=== PATIENT | male | born 1960 | race Caucasian/White ===

== ENCOUNTER → 2016-07-30 | Outpatient (CLI) | payer OTHER, BC ==
[~2016-07-30] MED LIST: CLON1TAB3 PO; CRD200 PO; CRG25 PO; DIGO30TA PO; EPLE25TA3 PO; LISI5TAB PO; MAGN1CAP2 PO; RIVA1TAB4 PO; RXC5 PO; ZOLP10TA6 PO
[2016-07-30 15:00] LABS: ALB/GLOB RATIO 1.1 (0.9-2); ALT/SGPT 31 U/L (12-78); AST/SGOT 15 U/L (15-37); BLOOD UREA NITROGEN 17 mg/dl (7-18); BUN/CREATININE RATIO 12.9 (10-20); CALCIUM 8.3 mg/dl (8.5-10.1); CARBON DIOXIDE 27 mmol/L (21-32); CHLORIDE 106 mmol/L (98-107); CHOLESTEROL 180 mg/dl (0-200); GLUCOSE 92 mg/dl (70-99); POTASSIUM 4.1 mmol/L (3.5-5.1); SODIUM 141 mmol/L (136-145); TRIGLYCERIDES 122 mg/dl (0-150); VERY LOW DENSITY LIPOPROT CALC 24 mg/dl
[2016-07-30 15:10] LABS: ALKALINE PHOSPHATASE 69 U/L (45-117); CHOLESTEROL/HDL RATIO 3.8; HDL CHOLESTEROL 48 mg/dl; LDL CHOLESTEROL CALCULATED 108 mg/dl
[2016-08-01 22:39] LABS: AMIODARONE 1.4 mcg/mL (1.5-2.5); DESMETHYLAMIODARONE 0.8 mcg/mL (1.5-2.5)
== END | disposition home or self-care (01) ==
LOC: C.LAB1850 12:57
PROVIDERS: ATTEND Internal Medicine
DX: Z11.59 Encounter for screening for other viral diseases (principal); I47.2 Ventricular tachycardia; I42.8 Other cardiomyopathies

== ENCOUNTER → 2017-03-11 | Outpatient (CLI) | payer OTHER, BC ==
--- NOTE | 2017-03-11 12:35 | DIAGNOSTIC IMAGING REPORT ---
CHEST 2 VIEWS ROUTINE CLINICAL HISTORY: Z79.899 On amiodarone therapy dyspnea COMPARISON STUDY: 01/06/2016 FINDINGS: Mild stable cardia megaly. Permanent implantable cardiac pacemaker/defibrillator. Lungs are clear. Diaphragms smooth. IMPRESSION: No acute process. Chronic and postoperative change. The above report was generated using voice recognition software. It may contain grammatical, syntax or spelling errors. Electronically signed by: Ras Nelson M.D. 03/11/2017 12:33 PM Dictated Date/Time: 03/11/2017 12:32 PM
[2017-03-11 14:16] LABS: THYROID STIMULATING HORMONE 1.38 uIu/ml (0.300-4.500)
[2017-03-14 08:28] LABS: AMIODARONE 1.9 mcg/mL (1.5-2.5); DESMETHYLAMIODARONE 1.1 mcg/mL (1.5-2.5)
== END | disposition home or self-care (01) ==
LOC: C.RAD1850 11:42
PROVIDERS: ATTEND Internal Medicine Cardiovascular Disease
DX: Z79.899 Other long term (current) drug therapy (principal)

== ENCOUNTER 2017-04-22 18:27 | Emergency (ER) | payer OTHER, BC ==
[~2017-04-22] VITALS: Ht 198.1 cm; Wt 115.0 kg
[2017-04-22 18:55] VITALS: TEMP 36.6; Ht 198.1 cm; Wt 115.0 kg
[2017-04-22] MEDS ORDERED: OXYCODONE HCL IR 5 MG TAB (IMMEDIATE RELEASE) PO STA (19:01)
--- NOTE | 2017-04-22 19:47 | DIAGNOSTIC IMAGING REPORT ---
ULTRASOUND R VENOUS DOPP LOWER EXT UNILAT CLINICAL HISTORY: Right leg pain COMPARISON STUDY: No previous studies for comparison. FINDINGS: Real-time and color flow Doppler imaging were performed. Flow was seen within the femoral, popliteal and calf veins with no intraluminal thrombus demonstrated. The saphenous vein is patent. IMPRESSION: No evidence of right lower extremity DVT. Electronically signed by: Blu Pandey M.D. 04/22/2017 7:45 PM Dictated Date/Time: 04/22/2017 7:45 PM
--- NOTE | 2017-04-22 20:27 | EMERGENCY ROOM VISIT NOTE ---
ED Visit Note First contact with patient: 18:58 The patient was seen and examined with Sebastian Billings PA-C. I agree with the history, physical and findings. Please see the note for disposition and details.
--- NOTE | 2017-04-22 20:27 | EMERGENCY ROOM VISIT NOTE ---
History First contact with patient: 18:58 Chief Complaint: CALF PAIN Stated Complaint: TIGHT CALF,POSSIBLE BLOOD CLOT History of Present Illness The patient is a 57 year old male who presents to the Emergency Room via private vehicle accompanied by female with complaints of "tight calf, possible blood clot". The patient states that he actually missed his recent dose of Xarelto. He is on this for atrial fibrillation. He notes that this morning he awoke with right lateral leg pain. He is concerned he may have a DVT. He rates the pain as a 10/10. Review of Systems A complete 6-point Review of Systems was discussed with the patient, with pertinent positives and negatives listed in the History of Present Illness. All remaining Review of Systems questions can be considered negative unless otherwise specified. Past Medical/Surgical History Medical Problems: (1) Afib (2) Cardiomyopathy (3) Diverticulosis (4) Kidney stones Surgical Problems: (1) S/P appendectomy Family History FH: heart disease Social History Smoking Status: Former Smoker Marital Status: Occupation Status: employed Current/Historical Medications Scheduled Amiodarone HCl (Amiodarone HCl), 200 MG PO DAILY Carvedilol (Carvedilol), 25 MG PO BID Digoxin (Digitek), 0.125 MG PO DAILY Eplerenone (Eplerenone), 25 MG PO HS Lisinopril (Prinivil), 5 MG PO HS Magnesium Oxide (Mg Supplement (Magnesium), 400 MG PO HS Rivaroxaban (Xarelto), 20 MG PO DAILY Zolpidem Tartrate (Zolpidem Tartrate), 10 MG PO DAILY Scheduled PRN Clonazepam (Klonopin), 0.5-1.5 MG PO HS PRN for Sleep Oxycodone HCl (Oxycodone HCl), 5-10 MG PO Q4 PRN for Pain Physical Exam Vital Signs Date Time Temp Pulse Resp B/P (MAP) Pulse Ox O2 Delivery O2 Flow Rate FiO2 04/22/17 20:48 72 102/64 98 04/22/17 18:55 36.6 86 20 90/60 96 Room Air Physical Exam VITAL SIGNS - Vital signs and nursing notes were reviewed. Stable. GENERAL -57-year-old male appearing his stated age who is in no acute distress. Communicates well with provider and answers questions appropriately. SKIN - Without rashes. No petechial rashes. Skin overlying the right leg is unremarkable. No erythema or excessive edema. No undue warmth. EXTREMITIES - No clubbing or peripheral cyanosis. No pretibial edema present. Passive dorsiflexion elicits pain in the right anterior tibialis region. No palpable cord. No calf tenderness. Excellent distal pulses. +5/5 strength noted in UE/LE bilaterally. He is neurovascularly intact in this region. Medical Decision & Procedures ER Provider Diagnostic Interpretation: [~ rep ct add3]] ULTRASOUND R VENOUS DOPP LOWER EXT UNILAT CLINICAL HISTORY: Right leg pain COMPARISON STUDY: No previous studies for comparison. FINDINGS: Real-time and color flow Doppler imaging were performed. Flow was seen within the femoral, popliteal and calf veins with no intraluminal thrombus demonstrated. The saphenous vein is patent. IMPRESSION: No evidence of right lower extremity DVT. Electronically signed by: Blu Pandey M.D. 04/22/2017 7:45 PM Dictated Date/Time: 04/22/2017 7:45 PM Medications Administered Medications (Trade) Dose Ordered Sig/Paola Route Start Time Stop Time Status Last Admin Dose Admin Oxycodone HCl (Roxicodone Immediate Rel Tab) 5 mg NOW STAT PO 04/22/17 19:01 04/22/17 19:22 DC 04/22/17 19:09 5 MG Medical Decision Patient was seen and evaluated as above. He presents to us today with concern over DVT. Ultrasound was obtained and found to be negative. I suspect he likely has a spasm of the anterior tibialis muscle. No evidence of compartment syndrome. He has excellent distal pulses. At this time the patient appears stable for outpatient management. He was given oxycodone here for his pain. Conservative management will be initiated. The patient was also seen and evaluated by the attending physician. Patient was educated upon management, educated upon worrisome symptoms in which to return, had questions answered prior to discharge, and was discharged home in good condition. Blood pressure appropriate once repeated. Medication list reviewed. In evaluation treatment this patient the following differential diagnoses were entertained: DVT, compartment syndrome, anterior tibialis strain, spasm, among others. Impression Primary Impression: Right leg pain Departure Information Dispostion Home / Self-Care Condition GOOD Referrals Ricky Juarez M.D. (PCP) Patient Instructions My [facility] Additional Instructions You have been treated in the Emergency Department for leg pain. You have received pain medicine in the emergency department which impairs your ability to operate a vehicle. It is illegal for you to drive after receiving these medicines. For pain control, you can use the following [id number] medicines (if >12 yo): - Regular strength (325mg/tab) Tylenol (acetaminophen) 2 tabs every 4-6 hours as needed. Do not exceed 12 tablets in a 24 hour period. Avoid taking more than 3 grams (3000 mg) of Tylenol per day. This includes any other sources of acetaminophen you may take on a regular basis. If this is a recent injury (<24 hrs), ice can be applied to the area of pain for the first 3 days to help decrease pain and inflammation. Ice massages can be performed by freezing water in a paper cup, peeling back the cup to expose the ice and then massaging over the affected area. Please limit weight bearing. Wrap to leg. Return to the Emergency Department if your current symptoms worsen despite treatment course outlined above.
[2017-04-22 20:48] VITALS: BP 102/64; PULSE 72; O2SAT 98
== END 2017-04-22 20:50 | disposition home or self-care (01) ==
LOC: C.EDB 18:28 → C.EDD 20:50
DX: M79.661 Pain in right lower leg (principal); I48.91 Unspecified atrial fibrillation; I42.9 Cardiomyopathy, unspecified; K57.90 Diverticulosis of intestine, part unspecified, without perforation or abscess without bleeding; Z87.442 Personal history of urinary calculi; Z98.890 Other specified postprocedural states; Z79.899 Other long term (current) drug therapy; Z82.49 Family history of ischemic heart disease and other diseases of the circulatory system

== ENCOUNTER → 2017-04-24 | Outpatient (CLI) | payer OTHER, BC ==
[2017-04-24 12:35] LABS: BLOOD UREA NITROGEN 24 mg/dl (7-18); BUN/CREATININE RATIO 17.8 (10-20); CALCIUM 9.3 mg/dl (8.5-10.1); CARBON DIOXIDE 24 mmol/L (21-32); CHLORIDE 106 mmol/L (98-107); CREATININE 1.35 mg/dl (0.60-1.40); GLUCOSE 73 mg/dl (70-99); POTASSIUM 4.5 mmol/L (3.5-5.1); SODIUM 135 mmol/L (136-145)
== END | disposition home or self-care (01) ==
LOC: C.LAB1850 10:41
PROVIDERS: ATTEND Internal Medicine Cardiovascular Disease
DX: I42.8 Other cardiomyopathies (principal)

== ENCOUNTER 2017-05-30 15:14 | Emergency (ER) | payer OTHER, BC ==
[~2017-05-30] VITALS: Ht 198.1 cm; Wt 115.7 kg
[2017-05-30 15:22] VITALS: TEMP 36.4; Ht 198.1 cm; Wt 115.7 kg
[2017-05-30] MEDS ORDERED: SACU1TAB4 PO (15:26)
[2017-05-30] MEDS ORDERED: SODIUM CHLORIDE 0.9% 500ML 500 ML IV STA (15:36)
[2017-05-30] MEDS ORDERED: OXYCODONE HCL IR 5 MG TAB (IMMEDIATE RELEASE) PO STA (15:36)
[2017-05-30 15:51] LABS: BASO % 0.3 %; BASO ABS # 0.02 K/uL (0-0.2); EOS ABS # 0.07 K/uL (0-0.5); HEMATOCRIT 40.3 % (42-52); HEMOGLOBIN 14.1 g/dL (14.0-18.0); IG# 0.01 K/uL (0.00-0.02); LYMPH % 15.2 %; LYMPH ABS # 1.11 K/uL (1.2-3.4); MEAN CELL VOLUME 92.2 fL (80-100); MEAN CORPUSCULAR HEMOGLOBIN 32.3 pg (25-34); MEAN PLATELET VOLUME 10.2 fL (7.4-10.4); MONO % 9.6 %; NEUT % 73.8 %; NEUT ABS # 5.38 K/uL (1.4-6.5); PLATELET COUNT 185 K/uL (130-400); RED CELL DISTRIBUTION WIDTH CV 12.2 % (11.5-14.5); RED CELL DISTRIBUTION WIDTH SD 41.5 fL (36.4-46.3); WHITE BLOOD COUNT 7.29 K/uL (4.8-10.8)
--- NOTE | 2017-05-30 15:53 | EMERGENCY ROOM VISIT NOTE ---
History Report prepared by Bev: Gregor Estrada Under the Supervision of: Dr. Taye Barajas M.D. 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 He states that he was in his attic checking a radon pipe to have it removed. He notes that he was in the attic of his home when he slipped off one of the beams and fell right through the ceiling into the bedroom. He states that he grabbed the beams on the way down, causing him to yank his shoulder. He reports pain in his right shoulder, right elbow, and under both arm pits. He currently rates his pain an 8 /10 in severity. The patient has cuts to both arms. He states that he landed on his feet on a rug. He states that he fell with full force. He states that he weighs 260 pounds and is 6 feet 6 inches tall. He states the ceiling is about 9 feet high, though he was in the attic on the beams which is higher. He notes chronic neck pain, though no new neck pain. He has a pace maker. He has a history of cardiomyopathy. He states that he can reach his ceiling from standing. He denies any head pain, LOC, neck pain, back pain, abdominal pain, chest pain, dizziness, shortness of breath, cough, leg pain, or leg numbness. He is currently taking Torsemide as needed. 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 He denies any head pain, dizziness or leg pain. Review of Systems See HPI for pertinent positives and negatives. A total of ten systems were reviewed and were otherwise negative. Past Medical & Surgical Medical Problems: (1) Afib (2) Cardiomyopathy (3) Diverticulosis (4) Kidney stones Surgical Problems: (1) S/P appendectomy Family History FH: heart disease Social History Smoking Status: Never Smoker Smokeless Tobacco Use: No Alcohol Use: none Drug Use: none Marital Status: Occupation Status: employed Current/Historical Medications Scheduled Amiodarone HCl (Amiodarone HCl), 200 MG PO BID Carvedilol (Carvedilol), 25 MG PO BID Digoxin (Digitek), 0.125 MG PO DAILY Eplerenone (Eplerenone), 25 MG PO HS Magnesium Oxide (Mg Supplement (Magnesium), 400 MG PO HS Rivaroxaban (Xarelto), 20 MG PO DAILY Sacubitril-Valsartan (Entresto 97-103 mg), 1 TAB PO BID Zolpidem Tartrate (Zolpidem Tartrate), 10 MG PO DAILY [Potassium], 1 TAB PO QPM Scheduled PRN Clonazepam (Klonopin), 0.5-1.5 MG PO HS PRN for Sleep Oxycodone Ir (Roxicodone Ir), 1-2 TAB PO Q4H PRN for Pain Allergies Coded Allergies: No Known Allergies (Verified , 05/30/17) Physical Exam Vital Signs Date Time Temp Pulse Resp B/P (MAP) Pulse Ox O2 Delivery O2 Flow Rate FiO2 05/30/17 18:09 74 17 101/57 98 05/30/17 17:33 85 20 101/56 100 Room Air 05/30/17 15:47 72 05/30/17 15:22 36.4 85 18 93/59 97 Room Air Physical Exam GENERAL: Awake, alert, uncomfortable appearing, no distress HEAD: Normocephalic, atraumatic. No eason sign. No raccoon eyes. EYES: Normal conjunctiva. PERRL. EARS: External ears normal. Right TM normal. Left TM normal. NOSE: Atraumatic OROPHARYNX: Lips, tongue, and mucosa unremarkable. No erythema or exudate. NECK: Paraspinal neck tenderness to palpation. No step offs in CT spine. No tracheal deviation or JVD. No posterior midline tenderness. No step offs noted. RESPIRATORY: CTA bilaterally CARDIAC: Regular rate and regular rhythm. ABDOMEN: Inspection reveals no abnormalities. Soft, non distended. No tenderness to palpation. No hernias. BACK: No midline step offs or tenderness to palpation. Unremarkable. PELVIS: Stable to rock. SKIN: Normal. LYMPH: No adenopathy. MUSCULOSKELETAL: Bilateral ecchymoses to medial aspect of bilateral upper arms. Tenderness bilaterally to posterior lateral chest wall. NEURO: GCS 15. Normal sensorium. No sensory or motor deficits noted. Medical Decision & Procedures ER Provider Diagnostic Interpretation: Radiology results as stated below per my review and radiologist interpretation: CT OF THE HEAD WITHOUT CONTRAST CLINICAL HISTORY: pain fall on Xarelto COMPARISON STUDY: Head CT August 13, 2013. CT DOSE: 3092.63 mGy.cm TECHNIQUE: Helical axial images of the head were obtained without IV contrast. Automated exposure control was utilized for the study. A dose lowering technique was utilized adhering to the principles of ALARA. FINDINGS: No acute intracranial hemorrhage, midline shift or mass effect is present. Exam is mildly compromised by motion artifact. Ventricular system is normal. Basilar cisterns are patent. There are no extra-axial collections. Tovar-white differentiation is maintained. No calvarial fracture is identified. IMPRESSION: 1. No acute intracranial findings. 2. No calvarial fracture. 3. Study mildly compromised by motion artifact. Electronically signed by: Emilio Sweeney M.D. 05/30/2017 4:33 PM Dictated Date/Time: 05/30/2017 4:[address] OF THE CERVICAL SPINE WITHOUT CONTRAST CLINICAL HISTORY: pain fall on Xarelto COMPARISON STUDY: No previous studies for comparison. TECHNIQUE: Helical axial images of the cervical spine were obtained without IV contrast. Sagittal and coronal reconstructions were viewed. A dose lowering technique was utilized adhering to the principles of ALARA. FINDINGS: There is reversal of the normal cervical lordosis. Craniocervical junction is intact. There is no acute cervical spine fracture. There is moderate multilevel degenerative disc disease and facet arthrosis. There is no prevertebral edema. The chest CT will be reported separately. IMPRESSION: No acute cervical spine fracture or subluxation. Electronically signed by: Emilio Sweeney M.D. 05/30/2017 4:35 PM LUMBAR SPINE WITHOUT CT DOSE: HISTORY: Trauma. Pain. pain fall on Xarelto TECHNIQUE: Multiaxial CT images of the lumbar spine were performed and reformatted in the sagittal and coronal plane without the use of contrast. A dose lowering technique was utilized adhering to the principles of ALARA. COMPARISON: None. FINDINGS: No acute compression deformities. Very slight wedge deformity superior endplate L1 considerable. Degenerative disc the change most prominent from L4 through S1. Spinous processes appear to be intact. Mild degenerative osteophytic change. No significant paravertebral soft tissue calcifications. No abnormality of the transverse processes.. Old fracture left posterior 12th rib. IMPRESSION: No fractures within the lumbar spine. Moderate degenerative change. The above report was generated using voice recognition software. It may contain grammatical, syntax or spelling errors. Electronically signed by: Ras Nelson M.D. 05/30/2017 4:36 PM Dictated Date/Time: 05/30/2017 4:33 PM THORACIC SPINE WITHOUT CT DOSE: HISTORY: Trauma. Pain. pain fall on Xarelto TECHNIQUE: Multiaxial CT images of the thoracic spine were performed and reformatted in the sagittal and coronal plane without the use of contrast. A dose lowering technique was utilized adhering to the principles of ALARA. COMPARISON: None. FINDINGS: No fractures. No subluxation. Paraspinal soft tissues are unremarkable. Thoracic scoliosis. Mild degenerative intervertebral disc change throughout. IMPRESSION: Mild scoliosis. No acute process. The above report was generated using voice recognition software. It may contain grammatical, syntax or spelling errors. Electronically signed by: Ras Nelson M.D. 05/30/2017 4:38 PM Dictated Date/Time: 05/30/2017 4:[address] OF THE CHEST WITH IV CONTRAST CLINICAL HISTORY: pain b/l flanks fall on Xarelto COMPARISON STUDY: Chest CT November 06, 2009 and chest radiograph March 11, 2017. TECHNIQUE: Following IV administration of 94 mL of Optiray-320, helical axial images of the chest were obtained. Sagittal and coronal reconstructions were viewed as well as maximal intensity projections on an independent 3-D workstation. A dose lowering technique was utilized adhering to the principles of ALARA. FINDINGS: There is no evidence of traumatic injury to the thoracic aorta. A left subclavian biventricular pacer/AICD is in place. The heart is moderately enlarged. There is no pericardial effusion. No enlarged thoracic lymph nodes are identified. There is no pneumothorax or pulmonary contusion. Subpleural opacities reflect atelectasis. No acute rib or thoracic spine fracture is identified. IMPRESSION: 1. No acute traumatic findings within the chest. 2. Moderate cardiomegaly. Electronically signed by: Emilio Sweeney M.D. 05/30/2017 4:49 PM Dictated Date/Time: 05/30/2017 4:36 PM ABD/PELVIS IV CONTRAST ONLY CT DOSE: HISTORY: Trauma. Pain. pain b/l flanks, hips fall on Xarelto TECHNIQUE: Multiaxial CT images of the abdomen and pelvis were performed following the use of intravenous contrast. A dose lowering technique was utilized adhering to the principles of ALARA. COMPARISON STUDY: 12/27/2015 FINDINGS: Minimal dependent basilar atelectasis. Overall configuration of liver spleen and pancreas are unremarkable. Left and to a lesser extent right renal cyst unchanged. No evidence for hydronephrosis. Bowel pattern is considered nonobstructive. Prior appendectomy. Bladder is midline. No free fluid within the pelvic cul-de-sac. Mild degenerative changes of the osseous structures with no acute process. Flank regions appear unremarkable. IMPRESSION: No acute process of the abdomen or pelvis. Incidental findings as noted considered chronic The above report was generated using voice recognition software. It may contain grammatical, syntax or spelling errors. Electronically signed by: Ras Nelson M.D. 05/30/2017 4:48 PM Dictated Date/Time: 05/30/2017 4:43 PM L HUMERUS MIN 2 VIEWS ROUTINE CLINICAL HISTORY: Pain following fall. COMPARISON: None FINDINGS: A left subclavian pacer is incidentally noted. No acute fracture within the proximal to mid left humerus is identified. Alignment of left shoulder is anatomic. Distal left humerus is visualized on the left elbow radiographs. IMPRESSION: No acute fracture within the proximal to mid left humerus. Distal right humerus better depicted on left elbow radiographs. Please see that report. Electronically signed by: Emilio Sweeney M.D. 05/30/2017 5:00 PM Dictated Date/Time: 05/30/2017 4:57 PM R SHOULDER MIN 2 VIEWS ROUTINE CLINICAL HISTORY: pain fall trauma COMPARISON: None. DISCUSSION: The bones and joint spaces appear intact. There is no evidence of fracture, dislocation or bony disease. There is no evidence for soft tissue swelling. IMPRESSION: Negative study. The above report was generated using voice recognition software. It may contain grammatical, syntax or spelling errors. Electronically signed by: Ras Nelson M.D. 05/30/2017 4:57 PM Dictated Date/Time: 05/30/2017 4:57 PM L SHOULDER MIN 2 VIEWS ROUTINE CLINICAL HISTORY: pain fall trauma COMPARISON: None. DISCUSSION: The bones and joint spaces appear intact. There is no evidence of fracture, dislocation or bony disease. There is no evidence for soft tissue swelling. IMPRESSION: Negative study. The above report was generated using voice recognition software. It may contain grammatical, syntax or spelling errors. Electronically signed by: Ras Nelson M.D. 05/30/2017 4:58 PM Dictated Date/Time: 05/30/2017 4:57 PM L ELBOW MIN 3 VIEWS ROUTINE CLINICAL HISTORY: pain fall COMPARISON: None FINDINGS: Alignment of the left elbow is anatomic. No fracture or joint effusion is evident. IMPRESSION: No acute fracture or joint effusion of the left elbow. Electronically signed by: Emilio Sweeney M.D. 05/30/2017 5:00 PM Dictated Date/Time: 05/30/2017 5:00 PM R HUMERUS MIN 2 VIEWS ROUTINE CLINICAL HISTORY: pain fall COMPARISON: None FINDINGS: Alignment of the right shoulder is anatomic. No fracture within visualized portions of the right humerus is identified. Distal right humerus is depicted on the right elbow radiographs. IMPRESSION: No acute fracture of the right humerus. Electronically signed by: Emilio Sweeney M.D. 05/30/2017 5:02 PM Dictated Date/Time: 05/30/2017 5:01 PM R ELBOW MIN 3 VIEWS ROUTINE CLINICAL HISTORY: pain fall COMPARISON: None FINDINGS: Alignment of the right elbow is anatomic. There is no joint effusion or fracture. IMPRESSION: No acute fracture or joint effusion of the right elbow. Electronically signed by: Emilio Sweeney M.D. 05/30/2017 5:01 PM Dictated Date/Time: 05/30/2017 5:01 PM Laboratory Results 05/30/17 15:39 Red Blood Count 4.37, Mean Corpuscular Volume 92.2, Mean Corpuscular Hemoglobin 32.3, Mean Corpuscular Hemoglobin Concent 35.0, Mean Platelet Volume 10.2, Neutrophils (%) (Auto) 73.8, Lymphocytes (%) (Auto) 15.2, Monocytes (%) (Auto) 9.6, Eosinophils (%) (Auto) 1.0, Basophils (%) (Auto) 0.3, Neutrophils # (Auto) 5.38, Lymphocytes # (Auto) 1.11, Monocytes # (Auto) 0.70, Eosinophils # (Auto) 0.07, Basophils # (Auto) 0.02 05/30/17 15:39 Test 05/30/17 15:39 05/30/17 15:45 05/30/17 17:37 White Blood Count 7.29 K/uL (4.8-10.8) Red Blood Count 4.37 M/uL (4.7-6.1) Hemoglobin 14.1 g/dL (14.0-18.0) Hematocrit 40.3 % (42-52) Mean Corpuscular Volume 92.2 fL (80-100) Mean Corpuscular Hemoglobin 32.3 pg (25-34) Mean Corpuscular Hemoglobin Concent 35.0 g/dl (32-36) Platelet Count 185 K/uL (130-400) Mean Platelet Volume 10.2 fL (7.4-10.4) Neutrophils (%) (Auto) 73.8 % Lymphocytes (%) (Auto) 15.2 % Monocytes (%) (Auto) 9.6 % Eosinophils (%) (Auto) 1.0 % Basophils (%) (Auto) 0.3 % Neutrophils # (Auto) 5.38 K/uL (1.4-6.5) Lymphocytes # (Auto) 1.11 K/uL (1.2-3.4) Monocytes # (Auto) 0.70 K/uL (0.11-0.59) Eosinophils # (Auto) 0.07 K/uL (0-0.5) Basophils # (Auto) 0.02 K/uL (0-0.2) RDW Standard Deviation 41.5 fL (36.4-46.3) RDW Coefficient of Variation 12.2 % (11.5-14.5) Immature Granulocyte % (Auto) 0.1 % Immature Granulocyte # (Auto) 0.01 K/uL (0.00-0.02) Est Creatinine Clear Calc Drug Dose 84.9 ml/min Estimated GFR () 66.7 Estimated GFR (Non- 57.6 BUN/Creatinine Ratio 25.6 (10-20) Calcium Level 9.2 mg/dl (8.5-10.1) Digoxin Level 1.1 ng/ml (0.8-2.0) Bedside Hemoglobin 13.9 g/dl (14.0-18.0) Bedside Hematocrit 41 % (42-52) Bedside Sodium 141 mEq/L (135-144) Bedside Potassium 5.1 mEq/L (3.3-5.0) Bedside Chloride 110 mEq/L (101-112) Bedside Total CO2 21 mEq/l (24-31) Anion Gap 16.0 mmol/L (16-25) Bedside Blood Urea Nitrogen 33 mg/dl (7-18) Bedside Creatinine 1.4 mg/dl (0.6-1.3) Bedside Glucose (other) 99 mg/dl (70-99) Bedside Ionized Calcium ([place]ullen) 1.25 mmol/l (1.12-1.32) Urine Color DK YELLOW Urine Appearance CLEAR (CLEAR) Urine pH 5.5 (4.5-7.5) Urine Specific [place] > 1.045 (1.000-1.030) Urine Protein NEG (NEG) Urine Glucose (UA) NEG (NEG) Urine Ketones TRACE (NEG) Urine Occult Blood NEG (NEG) Urine Nitrite NEG (NEG) Urine Bilirubin NEG (NEG) Urine Urobilinogen NEG (NEG) Urine Leukocyte Esterase NEG (NEG) Laboratory results reviewed by me Medications Administered Medications (Trade) Dose Ordered Sig/Paola Route Start Time Stop Time Status Last Admin Dose Admin Sodium Chloride 500 ml @ 125 mls/hr Q4H STAT IV 05/30/17 15:36 05/30/17 18:34 DC 05/30/17 17:30 125 MLS/HR Oxycodone HCl (Roxicodone Immediate Rel Tab) 5 mg NOW STAT PO 05/30/17 15:36 05/30/17 15:44 DC 05/30/17 15:54 5 MG ED Course 1530: The patient was evaluated in room C11B. A complete history and physical exam was performed. 1710: I reassessed the patient at this time. He is feeling better and resting comfortably. I discussed the results and treatment plan with the patient. I answered all pertaining questions that he had. He expressed understanding and verbalized agreement. The patient will be discharged home. Medical Decision I reviewed the patient's past medical history, medications, and the nursing notes as described above. The patient's history was concerning for traumatic injury Differential diagnosis: Etiologies such as fracture, dislocation, intra-abdominal, pneumothorax, intrathoracic , intracranial, neurologic, as well as other traumatic pathologies were entertained. The patient is a 57-year-old gentleman with a past medical history of CHF status post AICD on digoxin, afib on Xarelto presents emergency Department with fall through his ceiling when he was in his attic with pain in bilateral shoulders after trying to break his fall by grabbing crossbeams per hpi. Arrival the patient is uncomfortable in no acute distress, afebrile with stable vital signs. He has bilateral ecchymosis to the medial aspect of upper arms tenderness in bilateral lateral posterior chest wall. CTs performed of the patient's head, chest, abdomen/pelvis as well as CTL-spine all of which were negative for any traumatic findings. Plain films of b/l shoulders, humerus, elbows negative for fracture. Labs unremarkable. Patient feeling on reassessment after gentle IVF hydration and oxycodone. Findings and plan for follow-up reviewed with patient. Patient agreeable and d/c'd per discharge instructions. Medication Reconcilliation Current Medication List: was personally reviewed by me Blood Pressure Screening Patient's blood pressure: Normal blood pressure Impression Primary Impression: Contusion of multiple sites Additional Impression: Fall Scribe Attestation The scribe's documentation has been prepared under my direction and personally reviewed by me in its entirety. I confirm that the note above accurately reflects all work, treatment, procedures, and medical decision making performed by me. Departure Information Dispostion Home / Self-Care Prescriptions Oxycodone Ir (Roxicodone Ir) 5 Mg Tab 1-2 TAB PO Q4H Y for Pain, #5 TAB Prov: Taye Barajas M.D. 05/30/17 Referrals Ricky Juarez M.D. (PCP) Forms HOME CARE DOCUMENTATION FORM, IMPORTANT VISIT INFORMATION Patient Instructions Bruises Contusions, ED Shoulder Pain [facility], My [facility] Additional Instructions Please follow up with your primary care physician in the next 1-3 days for re- evaluation. You were found to have multiple bruises from your fall. Otherwise, your exam, CT scans, and lab results did not show signs of an emergent condition at this time. Acetaminophen for pain as needed. Oxycodone for breakthrough pain as needed. Return to the emergency department for worsening symptoms as described in the accompanying instructions. Problem Qualifiers
[2017-05-30 15:57] LABS: ISTAT CREATININE 1.4 mg/dl (0.6-1.3); ISTAT IONIZED CALCIUM 1.25 mmol/l (1.12-1.32); ISTAT POTASSIUM 5.1 mEq/L (3.3-5.0)
[2017-05-30] MEDS ORDERED: OPTIRAY 320 IV PRN (16:00)
[2017-05-30 16:08] LABS: CALCIUM 9.2 mg/dl (8.5-10.1); CREATININE 1.34 mg/dl (0.60-1.40)
--- NOTE | 2017-05-30 16:34 | DIAGNOSTIC IMAGING REPORT ---
CT OF THE HEAD WITHOUT CONTRAST CLINICAL HISTORY: pain fall on Xarelto COMPARISON STUDY: Head CT August 13, 2013. CT DOSE: 3092.63 mGy.cm TECHNIQUE: Helical axial images of the head were obtained without IV contrast. Automated exposure control was utilized for the study. A dose lowering technique was utilized adhering to the principles of ALARA. FINDINGS: No acute intracranial hemorrhage, midline shift or mass effect is present. Exam is mildly compromised by motion artifact. Ventricular system is normal. Basilar cisterns are patent. There are no extra-axial collections. Tovar-white differentiation is maintained. No calvarial fracture is identified. IMPRESSION: 1. No acute intracranial findings. 2. No calvarial fracture. 3. Study mildly compromised by motion artifact. Electronically signed by: Emilio Sweeney M.D. 05/30/2017 4:33 PM Dictated Date/Time: 05/30/2017 4:27 PM
--- NOTE | 2017-05-30 16:36 | DIAGNOSTIC IMAGING REPORT ---
CT OF THE CERVICAL SPINE WITHOUT CONTRAST CLINICAL HISTORY: pain fall on Xarelto COMPARISON STUDY: No previous studies for comparison. TECHNIQUE: Helical axial images of the cervical spine were obtained without IV contrast. Sagittal and coronal reconstructions were viewed. A dose lowering technique was utilized adhering to the principles of ALARA. FINDINGS: There is reversal of the normal cervical lordosis. Craniocervical junction is intact. There is no acute cervical spine fracture. There is moderate multilevel degenerative disc disease and facet arthrosis. There is no prevertebral edema. The chest CT will be reported separately. IMPRESSION: No acute cervical spine fracture or subluxation. Electronically signed by: Emilio Sweeney M.D. 05/30/2017 4:35 PM Dictated Date/Time: 05/30/2017 4:33 PM
--- NOTE | 2017-05-30 16:37 | DIAGNOSTIC IMAGING REPORT ---
LUMBAR SPINE WITHOUT CT DOSE: HISTORY: Trauma. Pain. pain fall on Xarelto TECHNIQUE: Multiaxial CT images of the lumbar spine were performed and reformatted in the sagittal and coronal plane without the use of contrast. A dose lowering technique was utilized adhering to the principles of ALARA. COMPARISON: None. FINDINGS: No acute compression deformities. Very slight wedge deformity superior endplate L1 considerable. Degenerative disc the change most prominent from L4 through S1. Spinous processes appear to be intact. Mild degenerative osteophytic change. No significant paravertebral soft tissue calcifications. No abnormality of the transverse processes.. Old fracture left posterior 12th rib. IMPRESSION: No fractures within the lumbar spine. Moderate degenerative change. The above report was generated using voice recognition software. It may contain grammatical, syntax or spelling errors. Electronically signed by: Ras Nelson M.D. 05/30/2017 4:36 PM Dictated Date/Time: 05/30/2017 4:33 PM
--- NOTE | 2017-05-30 16:39 | DIAGNOSTIC IMAGING REPORT ---
THORACIC SPINE WITHOUT CT DOSE: HISTORY: Trauma. Pain. pain fall on Xarelto TECHNIQUE: Multiaxial CT images of the thoracic spine were performed and reformatted in the sagittal and coronal plane without the use of contrast. A dose lowering technique was utilized adhering to the principles of ALARA. COMPARISON: None. FINDINGS: No fractures. No subluxation. Paraspinal soft tissues are unremarkable. Thoracic scoliosis. Mild degenerative intervertebral disc change throughout. IMPRESSION: Mild scoliosis. No acute process. The above report was generated using voice recognition software. It may contain grammatical, syntax or spelling errors. Electronically signed by: Ras Nelson M.D. 05/30/2017 4:38 PM Dictated Date/Time: 05/30/2017 4:36 PM
--- NOTE | 2017-05-30 16:49 | DIAGNOSTIC IMAGING REPORT ---
ABD/PELVIS IV CONTRAST ONLY CT DOSE: HISTORY: Trauma. Pain. pain b/l flanks, hips fall on Xarelto TECHNIQUE: Multiaxial CT images of the abdomen and pelvis were performed following the use of intravenous contrast. A dose lowering technique was utilized adhering to the principles of ALARA. COMPARISON STUDY: 12/27/2015 FINDINGS: Minimal dependent basilar atelectasis. Overall configuration of liver spleen and pancreas are unremarkable. Left and to a lesser extent right renal cyst unchanged. No evidence for hydronephrosis. Bowel pattern is considered nonobstructive. Prior appendectomy. Bladder is midline. No free fluid within the pelvic cul-de-sac. Mild degenerative changes of the osseous structures with no acute process. Flank regions appear unremarkable. IMPRESSION: No acute process of the abdomen or pelvis. Incidental findings as noted considered chronic The above report was generated using voice recognition software. It may contain grammatical, syntax or spelling errors. Electronically signed by: Ras Nelson M.D. 05/30/2017 4:48 PM Dictated Date/Time: 05/30/2017 4:43 PM
--- NOTE | 2017-05-30 16:50 | DIAGNOSTIC IMAGING REPORT ---
CT OF THE CHEST WITH IV CONTRAST CLINICAL HISTORY: pain b/l flanks fall on Xarelto COMPARISON STUDY: Chest CT November 06, 2009 and chest radiograph March 11, 2017. TECHNIQUE: Following IV administration of 94 mL of Optiray-320, helical axial images of the chest were obtained. Sagittal and coronal reconstructions were viewed as well as maximal intensity projections on an independent 3-D workstation. A dose lowering technique was utilized adhering to the principles of ALARA. FINDINGS: There is no evidence of traumatic injury to the thoracic aorta. A left subclavian biventricular pacer/AICD is in place. The heart is moderately enlarged. There is no pericardial effusion. No enlarged thoracic lymph nodes are identified. There is no pneumothorax or pulmonary contusion. Subpleural opacities reflect atelectasis. No acute rib or thoracic spine fracture is identified. IMPRESSION: 1. No acute traumatic findings within the chest. 2. Moderate cardiomegaly. Electronically signed by: Emilio Sweeney M.D. 05/30/2017 4:49 PM Dictated Date/Time: 05/30/2017 4:36 PM
--- NOTE | 2017-05-30 16:58 | DIAGNOSTIC IMAGING REPORT ---
R SHOULDER MIN 2 VIEWS ROUTINE CLINICAL HISTORY: pain fall trauma COMPARISON: None. DISCUSSION: The bones and joint spaces appear intact. There is no evidence of fracture, dislocation or bony disease. There is no evidence for soft tissue swelling. IMPRESSION: Negative study. The above report was generated using voice recognition software. It may contain grammatical, syntax or spelling errors. Electronically signed by: Ras Nelson M.D. 05/30/2017 4:57 PM Dictated Date/Time: 05/30/2017 4:57 PM
--- NOTE | 2017-05-30 16:59 | DIAGNOSTIC IMAGING REPORT ---
L SHOULDER MIN 2 VIEWS ROUTINE CLINICAL HISTORY: pain fall trauma COMPARISON: None. DISCUSSION: The bones and joint spaces appear intact. There is no evidence of fracture, dislocation or bony disease. There is no evidence for soft tissue swelling. IMPRESSION: Negative study. The above report was generated using voice recognition software. It may contain grammatical, syntax or spelling errors. Electronically signed by: Ras Nelson M.D. 05/30/2017 4:58 PM Dictated Date/Time: 05/30/2017 4:57 PM
[2017-05-30] MEDS ORDERED: POTASSIUM PO (17:01)
--- NOTE | 2017-05-30 17:01 | DIAGNOSTIC IMAGING REPORT ---
L ELBOW MIN 3 VIEWS ROUTINE CLINICAL HISTORY: pain fall COMPARISON: None FINDINGS: Alignment of the left elbow is anatomic. No fracture or joint effusion is evident. IMPRESSION: No acute fracture or joint effusion of the left elbow. Electronically signed by: Emilio Sweeney M.D. 05/30/2017 5:00 PM Dictated Date/Time: 05/30/2017 5:00 PM
--- NOTE | 2017-05-30 17:01 | DIAGNOSTIC IMAGING REPORT ---
L HUMERUS MIN 2 VIEWS ROUTINE CLINICAL HISTORY: Pain following fall. COMPARISON: None FINDINGS: A left subclavian pacer is incidentally noted. No acute fracture within the proximal to mid left humerus is identified. Alignment of left shoulder is anatomic. Distal left humerus is visualized on the left elbow radiographs. IMPRESSION: No acute fracture within the proximal to mid left humerus. Distal right humerus better depicted on left elbow radiographs. Please see that report. Electronically signed by: Emilio Sweeney M.D. 05/30/2017 5:00 PM Dictated Date/Time: 05/30/2017 4:57 PM
--- NOTE | 2017-05-30 17:02 | DIAGNOSTIC IMAGING REPORT ---
R ELBOW MIN 3 VIEWS ROUTINE CLINICAL HISTORY: pain fall COMPARISON: None FINDINGS: Alignment of the right elbow is anatomic. There is no joint effusion or fracture. IMPRESSION: No acute fracture or joint effusion of the right elbow. Electronically signed by: Emilio Sweeney M.D. 05/30/2017 5:01 PM Dictated Date/Time: 05/30/2017 5:01 PM
--- NOTE | 2017-05-30 17:03 | DIAGNOSTIC IMAGING REPORT ---
R HUMERUS MIN 2 VIEWS ROUTINE CLINICAL HISTORY: pain fall COMPARISON: None FINDINGS: Alignment of the right shoulder is anatomic. No fracture within visualized portions of the right humerus is identified. Distal right humerus is depicted on the right elbow radiographs. IMPRESSION: No acute fracture of the right humerus. Electronically signed by: Emilio Sweeney M.D. 05/30/2017 5:02 PM Dictated Date/Time: 05/30/2017 5:01 PM
[2017-05-30] MEDS ORDERED: OXYC1TAB3 PO (17:37)
[2017-05-30 18:09] VITALS: BP 101/57; PULSE 74; O2SAT 98
== END 2017-05-30 18:10 | disposition home or self-care (01) ==
LOC: C.EDB 15:15 → C.EDC 18:10
DX: T14.8XXA Other injury of unspecified body region, initial encounter (principal); W17.89XA Other fall from one level to another, initial encounter; Y92.008 Other place in unspecified non-institutional (private) residence as the place of occurrence of the external cause; G89.29 Other chronic pain; M54.2 Cervicalgia; I42.9 Cardiomyopathy, unspecified; Z87.442 Personal history of urinary calculi; Z79.899 Other long term (current) drug therapy; Z79.01 Long term (current) use of anticoagulants; I48.91 Unspecified atrial fibrillation; Z95.810 Presence of automatic (implantable) cardiac defibrillator

== ENCOUNTER 2017-06-19 22:41 | Observation (INO) | payer OTHER, BC ==
[~2017-06-19] VITALS: Ht 198.1 cm; Wt 114.2 kg
[~2017-06-19 22:41] MED LIST changes: -LISI5TAB PO; +OXYC1TAB3 PO; +POTASSIUM PO; -RXC5 PO; +SACU1TAB4 PO
[2017-06-19 23:40] LABS: HEMATOCRIT 37.3 % (42-52); HEMOGLOBIN 13.1 g/dL (14.0-18.0); MEAN CELL VOLUME 91.4 fL (80-100); MEAN CORPUSCULAR HEMOGLOBIN 32.1 pg (25-34); MEAN CORPUSCULAR HGB CONC 35.1 g/dl (32-36); PLATELET COUNT 184 K/uL (130-400); RED CELL DISTRIBUTION WIDTH CV 12.5 % (11.5-14.5); RED CELL DISTRIBUTION WIDTH SD 41.7 fL (36.4-46.3); WHITE BLOOD COUNT 4.43 K/uL (4.8-10.8)
[2017-06-19 23:44] LABS: INR 1.2 (0.9-1.1); PTT PATIENT 32.7 SECONDS (21.0-31.0)
[2017-06-19 23:46] LABS: ALBUMIN 3.2 gm/dl (3.4-5.0); ALT/SGPT 58 U/L (12-78); BLOOD UREA NITROGEN 21 mg/dl (7-18); CALCIUM 8.5 mg/dl (8.5-10.1); CARBON DIOXIDE 20 mmol/L (21-32); CREATININE 1.36 mg/dl (0.60-1.40); GLUCOSE 90 mg/dl (70-99); SODIUM 137 mmol/L (136-145)
[2017-06-19 23:52] LABS: ALKALINE PHOSPHATASE 77 U/L (45-117); AST/SGOT 31 U/L (15-37); CKMB 1.2 ng/ml (0.5-3.6); TOTAL PROTEIN 6.6 gm/dl (6.4-8.2)
--- NOTE | 2017-06-20 00:43 | EMERGENCY ROOM VISIT NOTE ---
History Report prepared by Bev: Jacobo Jimenez Under the Supervision of: Dr. Italia Nava M.D. First contact with patient: 00:04 Chief Complaint: CARDIAC ASSESSMENT Stated Complaint: HEART STOPPED, DFIB/PACEMAKER WENT OFF Nursing Triage Summary: patient was sitting in the chair drinking water and patient went unconscious per and patient states his defibrilator went off. was out for 45 seconds per . patient woke and feels fine. medics were on the scene and redcomended to come in via ambulance. but did talk into coming. History of Present Illness The patient is a 57 year old male who presents to the Emergency Room for a cardiac assessment due to his heart suddenly stopping and his defibrillator going off prior to arrival. The patient was drinking a martini and got up to get a glass of water, and when he sat back down he lost consciousness for around 45 seconds until his defibrillator went off, and he states that he only felt one jolt. He states that he has not been feeling well for the past couple of weeks, and he states that the past couple of days he has been feeling skipped beats. He states that he has felt fine since the episode. He states that the last time his defibrillator went off was a year ago. The patient reports that his blood pressure has been lower than usual for the past couple of weeks. He states that over the summer he was eating salty food and was feeling well, though since May 20 he has been eating more healthy, and he states that after changing his diet he has been feeling worse. He notes that he lost 14 pounds since the beginning of the month. The patient denies any recent medication changes. He states that he has a defibrillator due to A-fib at a young age, and it eventually led to heart failure, and his ejection fraction has been down. He states that he is on amiodarone and carvedilol. Source of History: patient, spouse/significant other Onset: prior to arrival Position: other (heart) Quality: other (heart stopping and his defibrillator going off) Timing: other (sudden) Associated Symptoms: + LOC Review of Systems See HPI for pertinent positives & negatives. A total of 10 systems reviewed and were otherwise negative. Past Medical & Surgical Medical Problems: (1) Afib (2) Cardiomyopathy (3) Defibrillator discharge (4) Diverticulosis (5) Kidney stones Surgical Problems: (1) S/P appendectomy Family History FH: heart disease Social History Smoking Status: Former Smoker Alcohol Use: none Drug Use: none Marital Status: Occupation Status: employed Current/Historical Medications Scheduled Amiodarone HCl (Amiodarone HCl), 200 MG PO BID Carvedilol (Carvedilol), 25 MG PO BID Digoxin (Digitek), 0.125 MG PO HS Eplerenone (Eplerenone), 25 MG PO HS Magnesium Oxide (Mg Supplement (Magnesium), 400 MG PO HS Potassium Chloride Microencaps (Potassium Chloride Er), 20 MEQ PO DAILY Rivaroxaban (Xarelto), 20 MG PO HS Sacubitril-Valsartan (Entresto 97-103 mg), 1 TAB PO BID Zolpidem Tartrate (Zolpidem Tartrate), 10 MG PO DAILY Scheduled PRN Clonazepam (Klonopin), 0.5-1.5 MG PO HS PRN for Sleep Allergies Coded Allergies: No Known Allergies (Verified , 06/20/17) Physical Exam Vital Signs Date Time Temp Pulse Resp B/P (MAP) Pulse Ox O2 Delivery O2 Flow Rate FiO2 06/20/17 01:20 70 17 06/20/17 01:00 93/48 06/20/17 00:50 70 18 06/20/17 00:39 100/56 06/20/17 00:30 82/44 06/20/17 00:20 70 21 06/20/17 00:15 71 20 06/20/17 00:00 85/50 96 Room Air 06/19/17 23:45 70 23 06/19/17 23:30 90/56 95 Room Air 06/19/17 23:23 Room Air 06/19/17 23:21 74 97 Room Air 06/19/17 23:21 Room Air 06/19/17 23:15 70 18 06/19/17 23:10 75 06/19/17 22:45 36.9 90 20 91/58 96 Room Air Physical Exam Vital signs reviewed. General: Well-appearing male, in no significant distress. Noted to be hypotensive. HEENT: No scleral icterus, PERRLA, neck supple. Atraumatic. Cardiovascular: Regular rate and rhythm, no extra sounds. Pulmonary: Clear to auscultation bilaterally, normal work of breathing. Abdomen: Soft, nontender, nondistended, positive bowel sounds. Musculoskeletal: Atraumatic, no peripheral edema. Neurologic: Patient awake alert and oriented x 3, full strength in all 4 extremities. Cranial nerves 2 through 12 grossly intact. Skin: Warm, dry, no rash Medical Decision & Procedures ER Provider Diagnostic Interpretation: X-ray results as stated below per interpretation by me: Chest One View: Cardiomegaly. Perihilar consolidation along the right heart border. No significant change from previous. No evidence of failure. Pacer defibrillator is visualized. Laboratory Results Test 06/19/17 23:11 06/19/17 23:15 Prothrombin Time 12.7 SECONDS (9.0-12.0) Prothromb Time International Ratio 1.2 (0.9-1.1) Activated Partial Thromboplast Time 32.7 SECONDS (21.0-31.0) Partial Thromboplastin Ratio 1.3 Total Bilirubin 0.4 mg/dl (0.2-1) Aspartate Amino Transf (AST/SGOT) 31 U/L (15-37) Alanine Aminotransferase (ALT/SGPT) 58 U/L (12-78) Alkaline Phosphatase 77 U/L (45-117) Total Creatine Kinase 36 U/L (39-308) Creatine Kinase MB 1.2 ng/ml (0.5-3.6) Creatine Kinase MB Ratio 3.3 (0-3.0) Total Protein 6.6 gm/dl (6.4-8.2) Albumin 3.2 gm/dl (3.4-5.0) Globulin 3.4 gm/dl (2.5-4.0) Albumin/Globulin Ratio 0.9 (0.9-2) Thyroid Stimulating Hormone (TSH) < 0.005 uIu/ml (0.300-4.500) Random Cortisol 9.95 mcg/dl Bedside Troponin I < 0.030 ng/ml (0-0.045) Laboratory results per my review. ECG Indication: other (dysrhythmia) Rate (beats per minute): 94 Rhythm: other (Ventricular pace) Findings: no ectopy, other (Biventricular Pacer) Change: Patient's electrocardiogram interpreted by me. ED Course 0004: Past medical records reviewed. The patient was evaluated in room C6. A complete history and physical examination was performed. 0052: I reevaluated the patient, and I discussed the treatment plan with him, and he was agreeable. 0059: I reviewed the patient's case with Dr. Valentine. He will evaluate the patient for further management. Medical Decision Differential Diagnoses include: Palpitations, V-fib, V-tach, and PE This pt was evaluated and appeared to be in no distress. IV access was obtained and lab work was drawn. Pt was placed on the data programmer. Lab work is fairly unrevealing, pt is noted to be hypotensive. He states he has been running a low BP for the last several weeks. Pt has been following a strict diet. Given his h/o severe cardiomyopathy, I did not feel IV hydration was immediately necessary. Currently the pt is stable and neurologically intact. [employer] interrogation report indicates a likely VT episode. Case was d/w the hospitalist for further management. Pt is aware of the plan and agrees. Medication Reconcilliation Current Medication List: was personally reviewed by me Blood Pressure Screening Patient's blood pressure: Low blood pressure Monitored by the hospitalist. Consults Time Called: 53 Consulting Physician: Dr. Valentine Returned Call: 58 I reviewed the patient's case with Dr. Valentine. He will evaluate the patient for further management. Impression Primary Impression: V-tach Additional Impressions: Hypotension Cardiomyopathy Scribe Attestation The scribe's documentation has been prepared under my direction and personally reviewed by me in its entirety. I confirm that the note above accurately reflects all work, treatment, procedures, and medical decision making performed by me. Departure Information Dispostion Being Evaluated By Hospitalist Referrals Ricky Juarez M.D. (PCP) Patient Instructions My [facility] Problem Qualifiers
--- NOTE | 2017-06-20 01:16 | History and Physical ---
History & Physical Date & Time of Service: Jun 20, 2017 at 01:04 Chief Complaint: Heart Stopped, Dfib/Pacemaker Went Off Primary Care Physician: Ricky Juarez M.D. History of Present Illness Source: patient, hospital records 57 y/o M Hx AF, CHF - EF 20% due to nonischemic cardiomyopathy, pacer/defib, ventricular arrhythmias with syncopal episodes. The pt presents stating that he felt like his heart stopped. He lost consciousness for 45 seconds and then regained consciousness when his defibrillator fired. He denies CP, SOB above baseline, N/V, diaphoresis. The pt does state that he has been feeling lightheaded and weak over the past few weeks. He describes nearly losing consciousness while grocery shopping and states that he has been hypotensive when he has checked his BP at home. His BP has apparently ranged between 60s to 90s systolic. He also notes that he has been careful with his diet and exercising regularly over the past few months and has lost 15 pounds as a result. Past Medical/Surgical History 1) Chronic atrial fibrillation 2) Nonischemic cardiomyopathy - chronic systolic CHF - EF 20% - severe global hypokinesis on echo 2013 3) Pacer/defibrillator 4) Ventricular arrhythmias with syncopal and presyncopal episodes reported in record 2013 5) Prolactinoma 6) HPL 7) Obesity Family History FH: heart disease Social History Smoking Status: Former Smoker Drug Use: none Marital Status: Housing status: lives with family Occupational Status: employed Immunizations History of Influenza Vaccine: No History of Tetanus Vaccine?: Unknown History of Pneumococcal: No History of Hepatitis B Vaccine: Unknown Multi-Drug Resistant Organisms History of MDRO: No Allergies Coded Allergies: No Known Allergies (Verified , 05/30/17) Home Medications Scheduled Amiodarone HCl (Amiodarone HCl), 200 MG PO BID Carvedilol (Carvedilol), 25 MG PO BID Digoxin (Digitek), 0.125 MG PO HS Eplerenone (Eplerenone), 25 MG PO HS Magnesium Oxide (Mg Supplement (Magnesium), 400 MG PO HS Potassium Chloride Microencaps (Potassium Chloride Er), 20 MEQ PO DAILY Rivaroxaban (Xarelto), 20 MG PO HS Sacubitril-Valsartan (Entresto 97-103 mg), 1 TAB PO BID Zolpidem Tartrate (Zolpidem Tartrate), 10 MG PO DAILY Scheduled PRN Clonazepam (Klonopin), 0.5-1.5 MG PO HS PRN for Sleep Review of Systems Constitutional: + weakness, + fatigue, No fever, No chills, No sweats Eyes: No worsening of vision ENT: No hearing loss, No nasal symptoms Respiratory: No cough, No sputum, No wheezing Cardiovascular: No chest pain, No orthopnea, No PND Abdomen: No pain, No nausea, No vomiting Musculoskeletal: No joint pain Genitourinary - Male: No hematuria, No dysuria Neurologic: + problem reported (lightheaded - syncope as above), No memory loss , No paralysis, No weakness Psychiatric: No depression symptoms Endocrine: + fatigue Hematologic / Lymphatic: No abnormal bleeding/bruising Integumentary: No rash Allergic / Immunologic: No environmental allergies Physical Exam Vital Signs Date Time Temp Pulse Resp B/P (MAP) Pulse Ox O2 Delivery O2 Flow Rate FiO2 06/20/17 00:15 71 20 06/20/17 00:00 85/50 96 Room Air 06/19/17 23:45 70 23 06/19/17 23:30 90/56 95 Room Air 06/19/17 23:23 Room Air 06/19/17 23:21 74 97 Room Air 06/19/17 23:21 Room Air 06/19/17 23:15 70 18 06/19/17 23:10 75 06/19/17 22:45 36.9 90 20 91/58 96 Room Air General Appearance: WD/WN Head: normocephalic Eyes: normal inspection, EOMI ENT: normal ENT inspection, pharynx normal Neck: supple, no JVD Respiratory/Chest: chest non-tender, lungs clear, normal breath sounds Cardiovascular: regular rate, rhythm, no edema, no JVD Abdomen/GI: normal bowel sounds, non tender, soft Back: normal inspection, no CVA tenderness, no muscle spasm Extremities/Musculoskelatal: normal inspection, no calf tenderness, normal capillary refill Neurologic/Psych: heel sander II-XII nml as tested, no motor/sensory deficits, alert, oriented x 3 Skin: normal color Diagnostics Laboratory Results Results Past 24 Hours Test 06/19/17 23:11 06/19/17 23:15 Range/Units White Blood Count 4.43 4.8-10.8 K/uL Red Blood Count 4.08 4.7-6.1 M/uL Hemoglobin 13.1 14.0-18.0 g/dL Hematocrit 37.3 42-52 % Mean Corpuscular Volume 91.4 80-100 fL Mean Corpuscular Hemoglobin 32.1 25-34 pg Mean Corpuscular Hemoglobin Concent 35.1 32-36 g/dl RDW Standard Deviation 41.7 36.4-46.3 fL RDW Coefficient of Variation 12.5 11.5-14.5 % Platelet Count 184 130-400 K/uL Mean Platelet Volume 10.0 7.4-10.4 fL Prothrombin Time 12.7 9.0-12.0 SECONDS Prothromb Time International Ratio 1.2 0.9-1.1 Activated Partial Thromboplast Time 32.7 21.0-31.0 SECONDS Partial Thromboplastin Ratio 1.3 Sodium Level 137 136-145 mmol/L Potassium Level 4.0 3.5-5.1 mmol/L Chloride Level 106 98-107 mmol/L Carbon Dioxide Level 20 21-32 mmol/L Anion Gap 11.0 3-11 mmol/L Blood Urea Nitrogen 21 7-18 mg/dl Creatinine 1.36 0.60-1.40 mg/dl Est Creatinine Clear Calc Drug Dose 75.6 ml/min Estimated GFR () 65.5 Estimated GFR (Non- 56.6 BUN/Creatinine Ratio 15.4 10-20 Random Glucose 90 70-99 mg/dl Calcium Level 8.5 8.5-10.1 mg/dl Total Bilirubin 0.4 0.2-1 mg/dl Aspartate Amino Transf (AST/SGOT) 31 15-37 U/L Alanine Aminotransferase (ALT/SGPT) 58 12-78 U/L Alkaline Phosphatase 77 45-117 U/L Total Creatine Kinase 36 39-308 U/L Creatine Kinase MB 1.2 0.5-3.6 ng/ml Creatine Kinase MB Ratio 3.3 0-3.0 Total Protein 6.6 6.4-8.2 gm/dl Albumin 3.2 3.4-5.0 gm/dl Globulin 3.4 2.5-4.0 gm/dl Albumin/Globulin Ratio 0.9 0.9-2 Bedside Troponin I < 0.030 0-0.045 ng/ml Diagnostic Radiology CXR may represent mild vascular congestion EKG BiV pacing - no evidence of acute ischemia Impression Assessment and Plan 57 y/o M Hx AF, CHF - EF 20% due to nonischemic cardiomyopathy, pacer/defib, ventricular arrhythmias with syncopal episodes. The pt presents stating that he felt like his heart stopped. He lost consciousness for 45 seconds and then regained consciousness when his defibrillator fired. He denies CP, SOB above baseline, N/V, diaphoresis. The pt does state that he has been feeling lightheaded and weak over the past few weeks. He describes nearly losing consciousness while grocery shopping and states that he has been hypotensive when he has checked his BP at home. His BP has apparently ranged between 60s to 90s systolic. He also notes that he has been careful with his diet and exercising regularly over the past few months and has lost 15 pounds as a result. 1) Syncope - pacer discharge - we have requested interrogation and will assign the pt to telemetry overnight. 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 2) Lightheaded, hypotension - may require an adjustment in his medications - this may have correlated with weight loss and general improvement in BP without medication adjustment, however, we are concerned due to his low EF that he is simply hypoperfusing. He is not however, clinically overloaded or hyponatremic on admission. We will hold his AM dose of Entresto and decrease his Coreg dose pending cardiology evaluation. He had taken his scheduled meds aside from Xarelto prior to admission. HGplacido has a history of prolactinoma - we will check a random cortisol and a TSH to r/o hormonal involvement. 3) AF - cont Coreg, Dig, Amio, Xarelto Full code - Xarelto prophylaxis Total time for this admit including review of labs, meds, imaging, records - discussion with pt and ER attending - 43 min Level of Care Telemetry Resuscitation Status FULL RESUSCITATION VTE Prophylaxis Given or contraindicated: Other Anticoagulation
[2017-06-20] MEDS ORDERED: POTA20TA13 PO (01:25)
[2017-06-20] MEDS ORDERED: MoRPHine SULFATE 2 MG/ML CARP IV PRN (01:30)
[2017-06-20] MEDS ORDERED: CLONAZEPAM 1 MG TAB PO PRN (01:30)
[2017-06-20] MEDS ORDERED: POLYETHYLENE (MIRALAX) 17 GM PACK PO PRN (01:30)
[2017-06-20] MEDS ORDERED: ACETAMINOPHEN 325 MG TAB PO PRN (01:30)
[2017-06-20] MEDS ORDERED: ALUMINUM/MAGNESIUM/SIMETH (MAALOX MAX) 30 ML UDC PO PRN (01:30)
[2017-06-20] MEDS ORDERED: MAGNESIUM HYDROXIDE SUSP 30 ML UDC PO PRN (01:30)
[2017-06-20] MEDS ORDERED: OXYCODONE HCL IR 5 MG TAB (IMMEDIATE RELEASE) PO PRN (01:30)
[2017-06-20] MEDS ORDERED: ONDANSETRON INJ 2 MG/ML 2 ML VIAL IV PRN (01:30)
[2017-06-20 02:20] VITALS: BP 101/64; PULSE 79; TEMP 36.3; O2SAT 95; Ht 198.1 cm; Wt 114.2 kg
[2017-06-20] MEDS ORDERED: IV FLUIDS COMPLETED PRN (02:30)
[2017-06-20] MEDS ORDERED: PNEUMOCOCCAL POLYSACCHARIDES 25 MCG/0.5 ML VIAL/SYR IM. ONE (04:45)
[2017-06-20] MEDS ORDERED: PNEUMOCOCCAL ADMINISTRATION CHARGE ONE (04:45)
--- NOTE | 2017-06-20 06:52 | DIAGNOSTIC IMAGING REPORT ---
CHEST ONE VIEW PORTABLE CLINICAL HISTORY: 57 years-old Male presenting with cardiac assessment. TECHNIQUE: Portable upright AP view of the chest was obtained. COMPARISON: 03/11/[address] from 05/30/2017. FINDINGS: Left subclavian implanted cardiac defibrillator with leads to the coronary sinus and right ventricular apex. Cardiac silhouette mildly enlarged, unchanged. Lungs and pleural spaces clear. Osseous structures normal. Upper abdomen normal. IMPRESSION: 1. Mild cardiac megaly. Otherwise no acute cardiopulmonary disease. Electronically signed by: Uzair Laboy M.D. 06/20/2017 6:50 AM Dictated Date/Time: 06/20/2017 6:49 AM
[2017-06-20 07:35] VITALS: BP 108/62; PULSE 72; TEMP 37; O2SAT 100
[2017-06-20] MEDS ORDERED: [UNRECOGNIZED DRUG - OTHER] SCH (08:00)
[2017-06-20] MEDS ORDERED: SACUBITRIL VALSARTAN PO SCH (09:00)
[2017-06-20] MEDS ORDERED: POTASSIUM CHLORIDE 10 MEQ TABCR PO SCH (09:00)
[2017-06-20] MEDS ORDERED: AMIODARONE 200 MG TAB PO SCH (09:00)
[2017-06-20] MEDS ORDERED: CARVEDILOL 25 MG TAB PO SCH ×3 (09:00)
[2017-06-20] MEDS ORDERED: RIVAROXABAN 10 MG TAB PO SCH (09:00)
[2017-06-20] MEDS ORDERED: DIGOXIN 0.125 MG TAB PO SCH (09:00)
[2017-06-20 09:28] LABS: HEMATOCRIT 35.6 % (42-52); HEMOGLOBIN 12.6 g/dL (14.0-18.0); MEAN CORPUSCULAR HEMOGLOBIN 32.2 pg (25-34); MEAN CORPUSCULAR HGB CONC 35.4 g/dl (32-36); MEAN PLATELET VOLUME 9.5 fL (7.4-10.4); PLATELET COUNT 163 K/uL (130-400); RED CELL DISTRIBUTION WIDTH CV 12.4 % (11.5-14.5); RED CELL DISTRIBUTION WIDTH SD 41.4 fL (36.4-46.3); WHITE BLOOD COUNT 3.42 K/uL (4.8-10.8)
--- NOTE | 2017-06-20 09:48 | Cardiology Consultation ---
Cardiology Consultation Date of Consultation: Jun 20, 2017. History of Present Illness This is a very pleasant 57-year-old gentleman who has a history of atrial fibrillation (now permanent) and nonischemic cardiomyopathy. His cardiomyopathy may be familial. He has been on antiarrhythmic medications for his atrial fibrillation but may have had toxicity and he is no longer on it. He remains on Xarelto for his atrial fibrillation. He has long-standing severe left ventricular dysfunction, ultimately he had a biventricular ICD implanted on 05/2013. He had a lot of premature ventricular beats and is on amiodarone to control them (although he also has nonsustained ventricular tachycardia and occasional sustained episodes requiring ICD therapy). He is also on heart failure medications including digoxin, carvedilol and Entresto as well as eplerenone. He has been on a strict diet for the last month and has lost about 15 pounds, he has not been feeling well and has been having difficulty with lightheadedness , difficulty with sleep and a tremoring sensation in his abdomen and chest from time to time. He was drinking a glass of water yesterday when he evidently lost consciousness, spilled it on himself and awoke with start which he believes was his ICD being activated. Apparently it was interrogated in the emergency room although I did not seem that record as yet. He was also noted to be hypotensive and some of his heart failure medications have been held temporarily. Snoring he feels much better, he does not have any lightheadedness, he reports no further palpitations. He has not been having chest discomfort. Family History FH: heart disease Social History Smoking Status: Never Smoker History of Alcohol Use: Yes (1 Weekly) Review of Systems Respiratory: + shortness of breath Cardiac: + see HPI Allergies Coded Allergies: No Known Allergies (Verified , 06/20/17) Medications Current Inpatient Medications Medications (Trade) Dose Ordered Sig/Paola Route Start Time Stop Time Status Last Admin Dose Admin Amiodarone HCl (Cordarone Tab) 200 mg BID PO 06/20/17 09:00 07/20/17 08:59 06/20/17 08:21 200 MG Clonazepam (Klonopin Tab) 1 mg HS PRN PO 06/20/17 01:30 07/20/17 01:29 Digoxin (Lanoxin Tab) 0.125 mg DAILY PO 06/20/17 09:00 07/20/17 08:59 06/20/17 08:21 0.125 MG Oxycodone HCl (Roxicodone Immediate Rel Tab) 10 mg Q4H PRN PO 06/20/17 01:30 07/04/17 01:29 Rivaroxaban (Xarelto Tab) 20 mg DAILY PO 06/20/17 09:00 07/20/17 08:59 06/20/17 08:21 20 MG Miscellaneous Information (Order Awaiting Action) 1 ea QS N/A 06/20/17 08:00 07/20/17 07:59 Magnesium Oxide (Mag-Ox Tab) 400 mg HS PO 06/20/17 21:00 07/20/17 20:59 Acetaminophen (Tylenol Tab) 650 mg Q4H PRN PO 06/20/17 01:30 07/20/17 01:29 Al Hydrox/Mg Hydrox/Simethicone (Maalox Max Susp) 15 ml Q4H PRN PO 06/20/17 01:30 07/20/17 01:29 Magnesium Hydroxide (Milk Of Magnesia Susp) 30 ml Q12H PRN PO 06/20/17 01:30 07/20/17 01:29 Ondansetron HCl (Zofran Inj) 4 mg Q6H PRN IV 06/20/17 01:30 07/20/17 01:29 Morphine Sulfate (MoRPHine SULFATE INJ) 2 mg Q30M PRN IV 06/20/17 01:30 07/04/17 01:29 Polyethylene (Miralax Powder Packet) 17 gm DAILY PRN PO 06/20/17 01:30 07/20/17 01:29 Potassium Chloride (Klor-Con M10) 10 meq BID PO 06/20/17 09:00 07/20/17 08:59 06/20/17 08:20 10 MEQ Miscellaneous (Iv Fluids Completed) 1 ea PRN PRN N/A 06/20/17 02:30 06/20/18 02:29 Carvedilol (Coreg Tab) 25 mg BID PO 06/20/17 09:00 07/20/17 08:59 06/20/17 08:20 25 MG Physical Exam Vital Signs Past 12 Hours Date Time Temp Pulse Resp B/P (MAP) Pulse Ox O2 Delivery O2 Flow Rate FiO2 06/20/17 08:21 72 06/20/17 08:00 Room Air 06/20/17 07:35 37.0 72 18 108/62 (77) 100 Room Air 06/20/17 04:00 Room Air 06/20/17 02:20 36.3 79 20 101/64 95 Room Air 06/20/17 01:50 71 21 06/20/17 01:30 101/57 98 Room Air 06/20/17 01:20 70 17 06/20/17 01:00 93/48 06/20/17 00:50 70 18 06/20/17 00:39 100/56 06/20/17 00:30 82/44 06/20/17 00:20 70 21 06/20/17 00:15 71 20 06/20/17 00:00 85/50 96 Room Air 06/19/17 23:45 70 23 06/19/17 23:30 90/56 95 Room Air 06/19/17 23:23 Room Air 06/19/17 23:21 74 97 Room Air 06/19/17 23:21 Room Air 06/19/17 23:15 70 18 06/19/17 23:10 75 06/19/17 22:45 36.9 90 20 91/58 96 Room Air Data Laboratory Results: Last 24 Hours Test 06/19/17 23:11 06/19/17 23:15 06/20/17 06:45 06/20/17 09:20 White Blood Count 4.43 K/uL 3.42 K/uL Red Blood Count 4.08 M/uL 3.91 M/uL Hemoglobin 13.1 g/dL 12.6 g/dL Hematocrit 37.3 % 35.6 % Mean Corpuscular Volume 91.4 fL 91.0 fL Mean Corpuscular Hemoglobin 32.1 pg 32.2 pg Mean Corpuscular Hemoglobin Concent 35.1 g/dl 35.4 g/dl RDW Standard Deviation 41.7 fL 41.4 fL RDW Coefficient of Variation 12.5 % 12.4 % Platelet Count 184 K/uL 163 K/uL Mean Platelet Volume 10.0 fL 9.5 fL Prothrombin Time 12.7 SECONDS Prothromb Time International Ratio 1.2 Activated Partial Thromboplast Time 32.7 SECONDS Partial Thromboplastin Ratio 1.3 Sodium Level 137 mmol/L Potassium Level 4.0 mmol/L Chloride Level 106 mmol/L Carbon Dioxide Level 20 mmol/L Anion Gap 11.0 mmol/L Blood Urea Nitrogen 21 mg/dl Creatinine 1.36 mg/dl Est Creatinine Clear Calc Drug Dose 75.6 ml/min Estimated GFR () 65.5 Estimated GFR (Non- 56.6 BUN/Creatinine Ratio 15.4 Random Glucose 90 mg/dl Calcium Level 8.5 mg/dl Magnesium Level 1.7 mg/dl Total Bilirubin 0.4 mg/dl Aspartate Amino Transf (AST/SGOT) 31 U/L Alanine Aminotransferase (ALT/SGPT) 58 U/L Alkaline Phosphatase 77 U/L Total Creatine Kinase 36 U/L Creatine Kinase MB 1.2 ng/ml Creatine Kinase MB Ratio 3.3 Total Protein 6.6 gm/dl Albumin 3.2 gm/dl Globulin 3.4 gm/dl Albumin/Globulin Ratio 0.9 Thyroid Stimulating Hormone (TSH) < 0.005 uIu/ml Random Cortisol 9.95 mcg/dl Bedside Troponin I < 0.030 ng/ml Troponin I < 0.015 ng/ml Imaging: EKG: Telemetry reviewed: Assessment & Plan #1. Loss of consciousness: Probably due to a ventricular arrhythmia, the ICD interrogation report is pending or I will need to reinterrogate this morning. Further recommendations to follow. #2. Hypotension: I suspect this is due to his strict diet, probably some degree of dehydration and his medications. He really should remain on his medications for his severe cardiomyopathy, he should probably not follow such as strict diet. We will need to gradually reintroduce his medications.
[2017-06-20 09:50] LABS: CALCIUM 8.6 mg/dl (8.5-10.1); CREATININE 1.29 mg/dl (0.60-1.40)
[2017-06-20] MEDS ORDERED: MAGNESIUM SULFATE 1GM / D5W 1 GM in PREMIXED IN D5W 100 ML IV STA (10:29)
[2017-06-20 11:28] VITALS: BP 119/74; PULSE 95; TEMP 37.1; O2SAT 96
--- NOTE | 2017-06-20 13:04 | Discharge Instructions ---
Discharge Instructions Date of Service Jun 20, 2017. Admission Reason for Admission: Defibrillator Discharge,Syncope And [place] Discharge Discharge Diagnosis / Problem: Defibrillator discharged, syncope Discharge Goals Goal(s): Decrease discomfort, Diagnostic testing, Therapeutic intervention Activity Recommendations Activity Limitations: resume your previous activity . Instructions / Follow-Up Instructions / Follow-Up You were admitted to the hospital for observation following a syncopal episode and collapse, as well as your defibrillator discharging. Your pacemaker was interrogated, which did show 1 shock for an episode of ventricular tachycardia/ ventricular fibrillation. You were evaluated by your tobacco primer machine operator, Dr. Morton , who thinks this episode is most likely related to your recent change in diet and perhaps dehydration. You are medically stable for discharge per cardiology. Medications: *No changes have been made to your medications. Recommendations: *It is recommended that you do not restrict your diet as severely and keep yourself well hydrated. Please be sure to consume adequate calories. Follow up: *You will be scheduled to follow up with your primary care provider as well as cardiology. Please seek medical attention if you experience fevers, chills, sweats, dizziness/lightheadedness, loss of consciousness, chest pain, shortness of breath, nausea, vomiting, numbness or tingling. Current Hospital Diet Patient's current hospital diet: AHA Diet (Heart Healthy) Discharge Diet Recommended Diet: Full Liquid Diet Pending Studies Studies pending at discharge: no Medical Emergencies . Who to Call and When: Medical Emergencies: If at any time you feel your situation is an emergency, please call 911 immediately. . Non-Emergent Contact Non-Emergency issues call your: Primary Care Provider, Applications Architect Call Non-Emergent contact if: you have a fever, you have any medication questions . Past History Medical & Surgical History: (1) Defibrillator discharge (2) Syncope and collapse . "Provider Documentation" section prepared by Sheree Christensen. . VTE Core Measure Inpt VTE Proph given/why not?: Other Anticoagulation (Xarelto)
[2017-06-20 13:31] VITALS: BP 119/74; PULSE 95; TEMP 37.1; O2SAT 96
--- NOTE | 2017-06-20 13:42 | Discharge Summary ---
Discharge Summary Date of Service Jun 20, 2017. Discharge Summary Admission Date: Jun 20, 2017 at 01:21 Discharge Date: Jun 20, 2017 Discharge Disposition: Home Principal Diagnosis: Defibrillator discharged, syncope and collapse Problems/Secondary Diagnoses: (1) Cardiomyopathy Status: Chronic A-fib Systolic CHF HLD Insomnia Immunizations: Have You Had Influenza Vaccine: No History of Tetanus Vaccine?: Unknown History of Pneumococcal: No History of Hepatitis B Vaccine: Unknown Procedures: CHEST ONE VIEW PORTABLE CLINICAL HISTORY: 57 years-old Male presenting with cardiac assessment. TECHNIQUE: Portable upright AP view of the chest was obtained. COMPARISON: 03/11/[address] from 05/30/2017. FINDINGS: Left subclavian implanted cardiac defibrillator with leads to the coronary sinus and right ventricular apex. Cardiac silhouette mildly enlarged, unchanged. Lungs and pleural spaces clear. Osseous structures normal. Upper abdomen normal. IMPRESSION: 1. Mild cardiac megaly. Otherwise no acute cardiopulmonary disease. Consultations: Cardiology Medication Reconciliation Continued Medications: Amiodarone HCl (Amiodarone HCl) 200 Mg Tab 200 MG PO BID, #90 Carvedilol (Carvedilol) 25 Mg Tab 25 MG PO BID, #180 Clonazepam (Klonopin) 1 Mg Tab 0.5-1.5 MG PO HS PRN for Sleep, TAB Digoxin (Digitek) 0.125 Mg Tab 0.125 MG PO HS, #90 Eplerenone (Eplerenone) 25 Mg Tab 25 MG PO HS Magnesium Oxide (Mg Supplement (Magnesium) 400 Mg Cap 400 MG PO HS Potassium Chloride Microencaps (Potassium Chloride Er) 20 Meq Tab 20 MEQ PO DAILY Rivaroxaban (Xarelto) 20 Mg Tab 20 MG PO HS, #90 Sacubitril-Valsartan (Entresto 97-103 mg) 1 Tab Tab 1 TAB PO BID Zolpidem Tartrate (Zolpidem Tartrate) 10 Mg Tab 10 MG PO DAILY, #30 Discharge Exam The patient reports feeling better. He states that he develops similar episodes when he is extremely fatigued, like he is now. He states he has not slept in about 30 hours, and this will trigger his ventricular arrhythmias. Last night when he was syncopal, his defibrillator discharged and he felt immediately better. He states that in the past when it has discharged, it usually takes a few hours to feel better. Besides feeling fatigued now, he denies any complaints. The patient denies fevers, chills, sweats, chest pain, palpitations, claudication, cough, wheezing, shortness of breath, nausea, vomiting, abdominal pain, dysuria, hematuria, urinary retention, paralysis, weakness, numbness and tingling. Constitutional: No fever, No chills, No sweats Eyes: No worsening of vision, No eye pain, No diplopia ENT: No hearing loss, No nasal symptoms, No trouble swallowing Respiratory: No cough, No wheezing, No shortness of breath Cardiovascular: No chest pain, No claudication, No palpitations Abdomen: No pain, No nausea, No vomiting Musculoskeletal: No joint pain, No muscle pain, No swelling Genitourinary - Male: No dysuria, No urinary retention, No hematuria Neurologic: No paralysis, No weakness, No numbness/tingling Integumentary: No rash, No itch, No color change General appearance: Well-developed, well-nourished, no apparent distress Head: Normocephalic, atraumatic Eyes: Normal inspection, PERRL, EOMI ENT: Normal ENT inspection, hearing grossly normal, pharynx normal Neck: Supple, no JVD, trachea midline Respiratory/Chest: Lungs clear to auscultation, normal breath sounds, no respiratory distress Cardiovascular: Regular rate & rhythm, no gallop, no murmur Abdomen/GI: Normal bowel sounds, non-tender, soft Extremities/Musculoskeletal: Normal inspection, no calf tenderness, no pedal edema Neurological/Psych: Alert, normal mood/affect, oriented x 3 Skin: Normal color, warm/dry, no rash Hospital Course 57 y/o male with a history of a-fib, systolic CHF, cardiomyopathy, pacer/ defibrillator, ventricular arrhythmias and syncope who presents following a syncopal episode followed by discharge of his defibrillator. The patient notes he has been heavily restricting his diet and exercising lately, losing 15 pounds in a month. Syncope, defibrillator discharge, h/o ventricular arrhythmias--stable -Admit to [facility] for observation. 2 short bursts of v-tach this morning, otherwise paced with HR in 70s -Cardiology consulted, appreciate recs: Pacemaker interrogation reviewed. Do not recommend any changes to defibrillator or medications as this time. Suspect this episode and recent hypotension are related to recent diet change and possibly dehydration. Stable for discharge from cardiac standpoint, no further work up at this time. -Troponins negative -Recommended a more moderate diet, increase hydration -Pacer interrogation shows 61 episodes of non-sustained v-tach since February. 1 shock for VT/VF Lightheaded, hypotension--could be secondary to recent strict diet, dehydration. BP improving, back to baseline per pt A-fib--paced rhythm -Continue amiodarone 200 mg PO BID, Coreg 25 mg PO BID, digoxin 125 mcg PO qd, and Xarelto 20 mg PO qd Systolic CHF, cardiomyopathy--stable, no acute exacerbation -Continue Coreg as above, eplerenone 25 mg PO hs, Entresto BID DVT prophylaxis -Xarelto Code Status -Level I, FULL RESUSCITATION STATUS Supervising Note Dr. Forrester I performed a history and physical examination on the patient. I reviewed above note and agree with it. I discussed plan with APC and patient. During my face to face encounter with the patient, I answered all of the patient's questions. Total Time Spent: Greater than 30 minutes This includes examination of the patient, discharge planning, medication reconciliation, and communication with other providers. Discharge Instructions Please refer to the electronic Patient Visit Report (Discharge Instructions) for additional information. Additional Copies To Ricky Juarez M.D.
[2017-06-20] MEDS ORDERED: MAGNESIUM OXIDE 400 MG TAB PO SCH (21:00)
== END 2017-06-20 14:05 | disposition home or self-care (01) ==
LOC: C.EDB 22:41 → C.2T 06-20 01:21 → ENRESERV 06-20 01:26
PROVIDERS: ADMIT Internal Medicine; ATTEND Internal Medicine
DX: T82.198A Other mechanical complication of other cardiac electronic device, initial encounter (principal); Y83.1 Surgical operation with implant of artificial internal device as the cause of abnormal reaction of the patient, or of later complication, without mention of misadventure at the time of the procedure; R55 Syncope and collapse; I42.9 Cardiomyopathy, unspecified; I48.91 Unspecified atrial fibrillation; I50.20 Unspecified systolic (congestive) heart failure; E78.5 Hyperlipidemia, unspecified; G47.00 Insomnia, unspecified; R42 Dizziness and giddiness; I95.9 Hypotension, unspecified; E66.9 Obesity, unspecified; Z68.29 Body mass index [BMI] 29.0-29.9, adult; Z79.01 Long term (current) use of anticoagulants; Z95.810 Presence of automatic (implantable) cardiac defibrillator; Z87.891 Personal history of nicotine dependence; Z90.49 Acquired absence of other specified parts of digestive tract; Z87.442 Personal history of urinary calculi; Z82.49 Family history of ischemic heart disease and other diseases of the circulatory system

== ENCOUNTER 2020-04-09 15:10 | Observation (INO) ==
--- NOTE | 2020-04-09 15:21 | Emergency Department Note ---
Impression & Plan Ventricular fibrillation, ICD (implantable cardioverter-defibrillator), biventricular, in situ, Nonischemic cardiomyopathy, ICD (implantable cardioverter-defibrillator) discharge ED Provider Note NAME: CLAYTON MISHRA AGE: 59 SEX: M : 1960 ARRIVES VIA: Ambulance INFORMANT: Patient ED PROVIDER(S): Henry Kim DO CHIEF COMPLAINT: syncope HPI: Patient is a 59-year-old male with past medical history of CHF, A. fib, mitral regurg, V. tach, ICD on amiodarone and anticoagulated presents the ER for syncopal episode. He was at the drugstore picking up the medication for his . The next thing he knew he was on the ground. He denied any headache or change in vision. No chest pain or shortness of breath. No dizziness or lightheadedness. Denies any belly pain nausea vomiting or diarrhea. He believes that his ICD did fire within the past month. No other exacerbating or remitting factors at this time. He does have a mild headache where he hit his head. Has not missed any doses of his rivaroxaban. ROS: See above HPI for pertinent positives & negatives. A total of 10 systems reviewed and were otherwise negative. PAST MEDICAL HISTORY:See Below PAST SURGICAL HISTORY:See Below FAMILY HISTORY:See Below SOCIAL HISTORY:See Below HOME MEDICATIONS:See Below ALLERGIES:See Below VITALS:See Below PHYSICAL EXAMINATION: GENERAL: Sitting up in bed, alert, well appearing, well nourished, no distress, non-toxic EYE EXAM: normal conjunctiva. PERRL and EOM's intact. HEAD: Mild tenderness in the posterior occiput. No obvious bruising. OROPHARYNX: no exudate, no erythema, lips, buccal mucosa, and tongue normal and mucous membranes are moist NECK: supple, no nuchal rigidity, no adenopathy, non-tender LUNGS: Clear to auscultation. Normal chest wall mechanics HEART: no murmurs, S1 normal and S2 normal CHEST: Pacer and left upper chest wall ABDOMEN: abdomen soft, non-tender, normo-active bowel sounds, no masses, no rebound or guarding. BACK: Back is symmetrical on inspection and there is no deformity, no midline tenderness, no CVA tenderness. SKIN: no rashes and no bruising UPPER EXTREMITIES: upper extremities are grossly normal. LOWER EXTREMITIES: No pitting edema. NEURO EXAM: Normal sensorium, cranial nerves II-XII intact, normal speech, no weakness of arms, no weakness of legs. No drift. Finger to nose intact. Gross sensation intact. MEDICAL DECISION MAKING: Patient is a 59-year-old male who presents ER following a syncopal episode without any prodromal symptoms. Upon presentation IV was established blood work was obtained. Labs show no significant leukocytosis or anemia. INR at 1.5. BMP with a creatinine of 1.6 fairly consistent with previous. LFTs bilirubin and troponin was negative. Lipase was normal. Digoxin level at 1.3. Covid negative. Chest x-ray was unremarkable. Medtronic pacemaker was interrogated and showed that he did go into V. fib and was shocked. CT head and cervical spine was unremarkable and performed secondary to the syncopal episode. Chest x-ray was unremarkable as well. Discussed with Dr. Isaak Castañeda from cardiology and he requested amiodarone level and no current med adjustments at this time. Discussed with the hospitalist for observation. Triage Nursing notes reviewed. Prior medical records reviewed Vital Signs: reviewed and remarkable for hypotension Differential diagnosis: Differential diagnosis includes etiologies such as vasovagal event, infection, hypoglycemia, electrolyte abnormalities, cardiac sources, intracerebral event, toxicologic, neurologic, as well as others were entertained. ER treatment provided: See below Diagnostics interpreted by me: ECG: Ventricularly paced rate 89 Right axis Right bundle branch block No PVCs QTC 576 Cardiac Monitoring: An order was placed for continuous cardiac monitoring. The monitor shows a rate of 74 with sinus rhythm. Laboratory studies: As stated above and show below. Imaging studies: Portable AP upright 1 view the chest shows no focal infiltrate or pneumothorax CT of the head and cervical spine shows no acute pathology Consultation(s): Discussed with Dr. Isaak Castañeda Discussed with Dr. Violetta Rojas for further evaluation ED COURSE: Procedures: none Critical Care: None Past Med/Surg History Medical History Anxiety Atrial fibrillation since 17 yrs old; on xarelto follows with Dr. Morton Diverticulosis Former smoker Hypothyroidism ICD (implantable cardioverter-defibrillator) in place 2013 @ [facility]--[facility] Kidney stones Marijuana use Microprolactinoma On amiodarone therapy On anticoagulant therapy xarelto Thyroid nodule Surgical History History of appendectomy History of cardiac cath 1977--no stent History of colonoscopy History of tonsillectomy History of tooth extraction wisdom teeth S/P appendectomy Family History Family/Other Family hx of colon cancer maternal uncle Brother A-fib Cardiomyopathy Sudden cardiac arrest Father Sudden Grandfather (Paternal) No problems noted. Mother Cancer Social History Smoking Status: Never smoker Second Hand Exposure: Yes (father smoked); Hx Alcohol Use: Yes Alcohol type: beer, wine and hard liquor Hx Substance Use: Yes (periodically smokes every once in awhile) Last Used Substance Other:: 2 yrs ago Preferred Language: Hungarian Communication Ability: Effective Microsoft Exchange Architect Required: No Beliefs That Will Affect Care: None Current Living Situation: Spouse Feels Safe at Home: Yes Assistive Devices: Contacts Allergies Allergies Allergy/AdvReac Type Severity Reaction Status Date / Time No Known Allergies Allergy Verified 04/09/20 16:54 Home Meds Home Medications Medication Instructions Recorded Confirmed clonazepam [Klonopin] 1.5 mg PO HS 03/07/18 04/09/20 magnesium oxide 400 mg PO QAM 03/07/18 04/09/20 potassium chloride 20 meq PO HS 03/07/18 04/09/20 torsemide 20 mg PO BID PRN 03/07/18 04/09/20 multivitamin 1 tab PO QAM tab 01/08/19 04/09/20 zolpidem 10 mg tablet 10 mg PO HS 05/07/19 04/09/20 gabapentin 100 mg capsule 100 - 400 mg PO BID 10/07/19 04/09/20 carvedilol 25 mg PO BIDM 04/09/20 04/09/20 levothyroxine 100 mcg PO QAM 04/09/20 04/09/20 rivaroxaban 20 mg PO HS 04/09/20 04/09/20 Previous Rx's Medication Instructions Recorded eplerenone 25 mg tablet 25 mg PO HS #90 tab 04/22/19 sacubitril 97 mg-valsartan 103 mg 1 tab PO BID #180 tab 04/22/19 tablet digoxin 125 mcg (0.125 mg) tablet 125 mcg PO HS #90 tab 08/17/19 amiodarone 200 mg tablet 200 mg PO BID #180 tab 01/22/20 Results & Data (ED) Vital Signs Vital Signs - 24 hr 04/09/20 15:18 04/09/20 17:01 04/09/20 18:53 Temperature 36.9 C Temperature Source Oral Pulse Rate 77 Pulse Rate [Apical] 71 74 Respiratory Rate 18 18 18 Blood Pressure 98/68 L Blood Pressure [Left Arm] 111/79 111/79 Blood Pressure Mean 78 Blood Pressure Mean [Left Arm] 89 89 Pulse Oximetry 97 98 97 Oxygen Delivery Method Room Air Room Air Sepsis Recent Fever Within 48 Hours No Sepsis New/Unexplained Change in Mental Status No Sepsis Action Taken by Nursing No Action Required 04/09/20 19:58 Temperature Temperature Source Pulse Rate Pulse Rate [Apical] 70 Respiratory Rate 18 Blood Pressure Blood Pressure [Left Arm] 109/69 Blood Pressure Mean Blood Pressure Mean [Left Arm] 82 Pulse Oximetry 98 Oxygen Delivery Method Room Air Sepsis Recent Fever Within 48 Hours Sepsis New/Unexplained Change in Mental Status Sepsis Action Taken by Nursing Laboratory Data Result diagrams: 04/09/20 15:06 04/09/20 15:06 Lab Results 04/09/20 04/09/20 04/09/20 Range/Units 15:06 15:06 15:06 WBC 5.68 (4.8-10.8) K/uL RBC 4.37 L (4.7-6.1) M/uL Hgb 15.0 (14.0-18.0) g/dL Hct 43.0 (42-52) % MCV 98.4 (80-100) fL MCH 34.3 H (25-34) pg MCHC 34.9 (32-36) g/dL RDW Std Deviation 47.0 H (36.4-46.3) fL RDW Coeff of Mikaela 13.1 (11.5-14.5) % Plt Count 185 (130-400) K/uL MPV 10.6 H (7.4-10.4) fL Immature Gran % (Auto) 0.7 % Neut % (Auto) 66.4 % Lymph % (Auto) 19.5 % Owsley % (Auto) 11.4 % Eos % (Auto) 1.8 % Baso % (Auto) 0.2 % Neut # (Auto) 3.77 (1.4-6.5) K/uL Lymph # (Auto) 1.11 L (1.2-3.4) K/uL Owsley # (Auto) 0.65 H (0.11-0.59) K/uL Eos # (Auto) 0.10 (0-0.5) K/uL Baso # (Auto) 0.01 (0-0.2) K/uL Immature Gran # (Auto) 0.04 H (0.00-0.02) K/uL PT 15.2 H (9.0-12.0) Seconds INR 1.5 H (0.9-1.1) APTT 38.1 H (21.0-31.0) Seconds PTT Ratio 1.4 Sodium 141 (136-145) mmol/L Potassium 3.9 (3.5-5.1) mmol/L Chloride 112 H (98-107) mmol/L Carbon Dioxide 24 (21-32) mmol/L Anion Gap 5.0 (3-11) BUN 25 H (7-18) mg/dl Creatinine 1.64 H (0.6-1.4) mg/dl Est Cr Clr Drug Dosing 68.8 ml/min Est GFR ( Amer) 51.5 Est GFR (Non-Af Amer) 44.5 BUN/Creatinine Ratio 15.3 (10-20) Glucose 93 (70-99) mg/dl Calcium 9.0 (8.5-10.1) mg/dl Total Bilirubin 0.8 (0.2-1) mg/dl AST 22 (15-37) U/L ALT 32 (12-78) U/L Alkaline Phosphatase 75 (45-117) U/L Troponin I < 0.015 (0-0.045) ng/ml Total Protein 7.2 (6.4-8.2) gm/dl Albumin 3.6 (3.4-5.0) gm/dl Globulin 3.6 (2.5-4.0) gm/dl Albumin/Globulin Ratio 1.0 (0.9-2) Lipase 153 (73-393) U/L Digoxin (0.8-2.0) ng/ml SARS-CoV-2 Ag (Rapid) (Negative) 04/09/20 04/09/20 Range/Units 17:37 Unknown WBC (4.8-10.8) K/uL RBC (4.7-6.1) M/uL Hgb (14.0-18.0) g/dL Hct (42-52) % MCV (80-100) fL MCH (25-34) pg MCHC (32-36) g/dL RDW Std Deviation (36.4-46.3) fL RDW Coeff of Mikaela (11.5-14.5) % Plt Count (130-400) K/uL MPV (7.4-10.4) fL Immature Gran % (Auto) % Neut % (Auto) % Lymph % (Auto) % Owsley % (Auto) % Eos % (Auto) % Baso % (Auto) % Neut # (Auto) (1.4-6.5) K/uL Lymph # (Auto) (1.2-3.4) K/uL Owsley # (Auto) (0.11-0.59) K/uL Eos # (Auto) (0-0.5) K/uL Baso # (Auto) (0-0.2) K/uL Immature Gran # (Auto) (0.00-0.02) K/uL PT (9.0-12.0) Seconds INR (0.9-1.1) APTT (21.0-31.0) Seconds PTT Ratio Sodium (136-145) mmol/L Potassium (3.5-5.1) mmol/L Chloride (98-107) mmol/L Carbon Dioxide (21-32) mmol/L Anion Gap (3-11) BUN (7-18) mg/dl Creatinine (0.6-1.4) mg/dl Est Cr Clr Drug Dosing ml/min Est GFR ( Amer) Est GFR (Non-Af Amer) BUN/Creatinine Ratio (10-20) Glucose (70-99) mg/dl Calcium (8.5-10.1) mg/dl Total Bilirubin (0.2-1) mg/dl AST (15-37) U/L ALT (12-78) U/L Alkaline Phosphatase (45-117) U/L Troponin I (0-0.045) ng/ml Total Protein (6.4-8.2) gm/dl Albumin (3.4-5.0) gm/dl Globulin (2.5-4.0) gm/dl Albumin/Globulin Ratio (0.9-2) Lipase (73-393) U/L Digoxin 1.3 (0.8-2.0) ng/ml SARS-CoV-2 Ag (Rapid) Negative (Negative) Administered Medications Discontinued Medications Acetaminophen (Acetaminophen 325 Mg Tab) 650 mg PO NOW STA Stop: 04/09/20 16:40 Last Admin: 04/09/20 18:39 Dose: Not Given Documented by: [id number] Sodium Chloride (Nss) 500 mls @ 999 mls/hr IV .Q31M ONE Stop: 04/09/20 16:05 Last Infusion: 04/09/20 16:50 Dose: 0 mls/hr Documented by: [id number] Admin: 04/09/20 16:04 Dose: 999 mls/hr Documented by: [id number] Discharge Plan Visit Data Chief Complaint: Syncope ED Provider: Henry Kim Discharge Problem: Ventricular fibrillation, ICD (implantable cardioverter-defibrillator), biventricular, in situ, Nonischemic cardiomyopathy, ICD (implantable cardioverter-defibrillator) discharge Discharge Instructions Interventions: ED Discharge Assessment Last Done: 04/09/20 20:05 Forms Stand Alone Forms: [facility] Prescriptions Prescriptions: No Action eplerenone 25 mg tablet 25 mg PO HS Qty: 90 RF: 3 Entresto 97-103 mg tablet 1 tab PO BID Qty: 180 RF: 3 digoxin [Digox] 125 mcg (0.125 mg) tablet 125 mcg PO HS Qty: 90 RF: 3 amiodarone 200 mg tablet 200 mg PO BID Qty: 180 RF: 3 gabapentin 100 mg capsule 100 - 400 mg PO BID RF: 0 torsemide 20 mg Tablet 20 mg PO BID PRN (Reason: Edema) RF: 0 clonazepam [Klonopin] 1 mg Tablet 1.5 mg PO HS RF: 0 magnesium oxide 400 mg Capsule 400 mg PO QAM RF: 0 potassium chloride 20 mEq Tablet Extended Release 20 meq PO HS RF: 0 multivitamin tablet 1 tab PO QAM RF: 0 zolpidem [Ambien] 10 mg tablet 10 mg PO HS RF: 0 carvedilol 25 mg tablet 25 mg PO BIDM RF: 0 levothyroxine 100 mcg tablet 100 mcg PO QAM RF: 0 rivaroxaban 20 mg tablet 20 mg PO HS RF: 0 Referrals Referrals: Ricky Juarez MD [Primary Care Provider] -
[2020-04-09 15:29] LABS: Basophils # (auto) 0.01 K/uL (0-0.2); Basophils % (auto) 0.2 %; Eosinophils % (auto) 1.8 %; Immature Granulocytes # (auto) 0.04 K/uL (0.00-0.02); Immature Granulocytes % (auto) 0.7 %; Lymphocytes # (auto) 1.11 K/uL (1.2-3.4); Lymphocytes % (auto) 19.5 %; Mean Corpuscular Hemoglobin 34.3 pg (25-34); Mean Corpuscular Hgb Conc 34.9 g/dL (32-36); Mean Corpuscular Volume 98.4 fL (80-100); Mean Platelet Volume 10.6 fL (7.4-10.4); Monocytes # (auto) 0.65 K/uL (0.11-0.59); Monocytes % (auto) 11.4 %; Neutrophils # (auto) 3.77 K/uL (1.4-6.5); Neutrophils % (auto) 66.4 %; Platelet Count 185 K/uL (130-400); RDW Coefficient of Variation 13.1 % (11.5-14.5); Red Blood Count 4.37 M/uL (4.7-6.1); White Blood Count 5.68 K/uL (4.8-10.8)
[2020-04-09] MEDS ORDERED: SODIUM CHLORIDE 0.9% 500 ML IV ONE (15:35)
[2020-04-09 15:38] LABS: INR 1.5 (0.9-1.1); Partial Thromboplastin Ratio 1.4; Partial Thromboplastin Time 38.1 Seconds (21.0-31.0); Prothrombin Time 15.2 Seconds (9.0-12.0)
[2020-04-09 15:47] LABS: Alanine Aminotransferase 32 U/L (12-78); Albumin Level 3.6 gm/dl (3.4-5.0); Aspartate Aminotransferase 22 U/L (15-37); BUN Creatinine Ratio 15.3 (10-20); Blood Urea Nitrogen 25 mg/dl (7-18); Carbon Dioxide 24 mmol/L (21-32); Chloride 112 mmol/L (98-107); Creatinine Clr Calc Pharmacy 68.8 ml/min; Est GFR (African American) 51.5; Est GFR (Non-African American) 44.5; Glucose 93 mg/dl (70-99); Lipase 153 U/L (73-393); Potassium 3.9 mmol/L (3.5-5.1); Sodium 141 mmol/L (136-145)
[2020-04-09 15:52] LABS: Alkaline Phosphatase 75 U/L (45-117); Bilirubin,Total 0.8 mg/dl (0.2-1); Globulin 3.6 gm/dl (2.5-4.0); Total Protein 7.2 gm/dl (6.4-8.2); Troponin I < 0.015 ng/ml (0-0.045)
--- NOTE | 2020-04-09 16:23 | CT Scan Report ---
HEAD CT NONCONTRAST CT DOSE: HISTORY: Headache. Fall. Head injury. TECHNIQUE: Multiaxial CT images of the head were performed without the use of intravenous contrast. A utomated exposure control was utilized for this study. A dose lowering technique was utilized adheri ng to the principles of ALARA. Comparison: Head CT 04/08/2018. Findings: The paranasal sinuses and mastoid air cells are clear. The calvarium and skull base are int act. The ventricles and sulci are within normal limits. There is no mass, hematoma, midline shift, or acute infarct. Mild posterior scalp swelling. Impression: No acute intracranial abnormality. Mild posterior scalp swelling. ACT 112: Negative or not required by law. Electronically signed by: Ander Figueroa M.D. 04/09/2020 4:22 PM
--- NOTE | 2020-04-09 16:29 | CT Scan Report ---
CERVICAL SPINE CT CT DOSE: 1214.59 mGy.cm HISTORY: neck pain TECHNIQUE: Multiaxial CT images of the cervical spine were performed and reformatted in the sagittal and coronal plane without the use of contrast. A dose lowering technique was utilized adhering to th e principles of ALARA. COMPARISON: Cervical spine CT 04/08/2018. FINDINGS: No fractures. No subluxation. Prevertebral soft tissues and the C1-C2 interval are intact. No pneumothorax. Reversal of the normal lordotic curvature. Partial fusion of the C2-C3 and C6-C7 adriana tebral bodies and facets. Mild to moderate disc space narrowing at C4-C5, C5-C6. IMPRESSION: No fractures within the cervical spine. ACT 112: Negative or not required by law. Electronically signed by: Ander Figueroa M.D. 04/09/2020 4:27 PM
--- NOTE | 2020-04-09 16:32 | XRay Report ---
XR chest 1V portable HISTORY: Fall. Atypical chest pain. COMPARISON: Chest 06/19/2017. FINDINGS: No pneumothorax. The heart remains mildly enlarged. There is a left-sided pacemaker/defibri llator. No new focal lung consolidations to suggest pneumonia. No evidence for pulmonary edema. No ac torres martinez rib fractures. IMPRESSION: No significant change compared to the prior study. No acute process. Stable mild cardiomegaly. ACT 112: Negative or not required by law. Electronically signed by: Ander Figueroa M.D. 04/09/2020 4:30 PM
[2020-04-09] MEDS ORDERED: ACETAMINOPHEN 325 MG TAB PO STA (16:39)
--- NOTE | 2020-04-09 17:49 | History & Physical Report ---
Date of Service April 09, 2020 Assessment & Plan (1) Syncope and collapse: Pt with ICD firing during this episode Found to be in vtach Per outpt cardiology note from 03/14: pt was found to have had 4 episodes of vtach over the 6 month period, but with no associated syncope. He is overdue for an ECHO and labs, however he declined at that time. CBC WNL Electrolytes WNL CXR neg for acute Digoxin, amio levels pending TSH pending EKG is paced Trop neg x1, serials pending ECHO pending, last ECHO 2017 with EF 35% Cardiology c/s pending CT head neg for acute other than soft tissue swelling C-spine neg for acute (2) REBECCA (acute kidney injury): Baseline cr is 1.4 Cr is 1.6 on admission Monitor with gentle IVF given cardiomyopathy (3) Nonischemic cardiomyopathy: As above (4) Paroxysmal ventricular tachycardia: As above (5) Dyslipidemia: (6) Insomnia: Ambian as at home (7) Peripheral neuropathy: Gabapentin is 100mg AM, 400mg PM (8) ICD (implantable cardioverter-defibrillator), biventricular, in situ: Noted on last cardiology visit that battery will need replaced in the next several months (9) Hypothyroidism: TSH pending (10) DVT prophylaxis: SCDs History of Present Illness Primary Care Provider: Ricky Juarez MD 59 y/o M who came to the ED s/p syncopal episode. Pt was shopping at the [employer] and "bent over and twisted" in such a way that he could feel his heart skip, which happens on occasion. He states the next thing he remembers is waking up to a safety deposit clerk after he apparently passed out. He states that he felt a few more "skips" today than usual, but otherwise had a normal day for himself. Pt denies fever, SOB, chest pain, abd pain, n/v/c/d, LE pain or swelling. His main concern at this time is pain to his posterior head and R trap/clavicle. Pt states this has happened before, last time being about a year ago. He was seen in the ED at that time as well. ED physician spoke with Dr. Castañeda who recommends watching pt overnight for telemetry. Allergies Allergy/AdvReac Type Severity Reaction Status Date / Time No Known Allergies Allergy Verified 04/09/20 16:54 Home Medications Medication Instructions Recorded Confirmed Type clonazepam [Klonopin] 1.5 mg PO HS 03/07/18 04/09/20 History magnesium oxide 400 mg PO QAM 03/07/18 04/09/20 History potassium chloride 20 meq PO HS 03/07/18 04/09/20 History torsemide 20 mg PO BID PRN 03/07/18 04/09/20 History multivitamin 1 tab PO QAM tab 01/08/19 04/09/20 History eplerenone 25 mg tablet 25 mg PO HS #90 tab 04/22/19 04/09/20 Rx sacubitril 97 mg-valsartan 103 mg 1 tab PO BID #180 tab 04/22/19 04/09/20 Rx tablet zolpidem 10 mg tablet 10 mg PO HS 05/07/19 04/09/20 History digoxin 125 mcg (0.125 mg) tablet 125 mcg PO HS #90 tab 08/17/19 04/09/20 Rx gabapentin 100 mg capsule 100 - 400 mg PO BID 10/07/19 04/09/20 History amiodarone 200 mg tablet 200 mg PO BID #180 tab 01/22/20 04/09/20 Rx carvedilol 25 mg PO BIDM 04/09/20 04/09/20 History levothyroxine 100 mcg PO QAM 04/09/20 04/09/20 History rivaroxaban 20 mg PO HS 04/09/20 04/09/20 History Past Med/Surg History Medical History Anxiety Atrial fibrillation since 17 yrs old; on xarelto follows with Dr. Morton Diverticulosis Former smoker Hypothyroidism ICD (implantable cardioverter-defibrillator) in place 2013 @ [facility]--[facility] Kidney stones Marijuana use Microprolactinoma On amiodarone therapy On anticoagulant therapy xarelto Thyroid nodule Surgical History History of appendectomy History of cardiac cath 1977--no stent History of colonoscopy History of tonsillectomy History of tooth extraction wisdom teeth S/P appendectomy Family History Family/Other Family hx of colon cancer maternal uncle Brother A-fib Cardiomyopathy Sudden cardiac arrest Father Sudden Grandfather (Paternal) No problems noted. Mother Cancer Social History Smoking Status: Never smoker Second Hand Exposure: Yes (father smoked); Hx Alcohol Use: Yes Alcohol type: beer, wine and hard liquor Hx Substance Use: Yes (periodically smokes every once in awhile) Last Used Substance Other:: 2 yrs ago Preferred Language: Estonian Communication Ability: Effective Ready [employer] Wear Department Manager Required: No Beliefs That Will Affect Care: None Current Living Situation: Spouse Feels Safe at Home: Yes Assistive Devices: Contacts Review of Systems Review of Systems: Pertinent positives and negatives reviewed in HPI--all others negative Physical Exam Constitutional: WD/WN, vitals as above Eyes: normal visual argueta by confrontation and + anicteric sclerae Neck: normal visual inspection and trachea midline Respiratory: normal respiratory effort, lungs clear to auscultation Cardiovascular: Rate/Rhythm: regular rate and regular rhythm Gastrointestinal (Abdomen): Inspection/Auscultation: abdomen not distended Percussion/Palpation: abdomen soft; abdomen nontender Musculoskeletal: Head/Neck/Chest: normocephalic and head atraumatic negative for edema, peripheral pulses intact Skin: no rashes, warm and dry Neurologic: awake; not confused Speech / Cognition: normal speech Psychiatric: A+Ox3, euthymic affect Results & Data Results & Data ([facility]) Vital Signs (Past 12 Hours) Vital Signs Temp Pulse Pulse Resp BP BP Pulse Ox 04/09/20 17:01 71 18 111/79 98 04/09/20 15:18 36.9 C 77 18 98/68 L 97 Diagnostic Findings CXR: neg for acute CT head: posterior scalp swelling CT c-spine: neg for acute ECG Additional Comments: Ventricular pacing Code Status & VTE Plan Code Status Full code VTE Prophylaxis Plan VTE Prophylaxis will be ordered: Yes PG Care Time/CCT Total # of Minutes Spent Total Time Spent with Patient: Total time spent is greater than 50% in coordination of care (as documented) at patient's floor/unit and/or counseling patient: Coding Level of Care Code 55486 OBS Care - Level 3 Diagnoses Syncope and collapse R55 REBECCA (acute kidney injury) N17.9 Nonischemic cardiomyopathy I42.8 Paroxysmal ventricular tachycardia I47.2 Dyslipidemia E78.5 Insomnia G47.00 Peripheral neuropathy G62.9 ICD (implantable cardioverter-defibrillator), biventricular, in situ Z95.810 Hypothyroidism E03.9 DVT prophylaxis Z29.9
[2020-04-09] MEDS ORDERED: IBUPROFEN 600 MG TAB PO STA (20:43)
[2020-04-09] MEDS ORDERED: ACETAMINOPHEN 325 MG TAB PO PRN (20:43)
[2020-04-09] MEDS ORDERED: MAGNESIUM HYDROXIDE SUSP 30 ML UDC PO PRN (20:43)
[2020-04-09] MEDS ORDERED: TORSEMIDE 20 MG TAB PO PRN (20:43)
[2020-04-09] MEDS ORDERED: ONDANSETRON INJ 2 MG/ML 2 ML VIAL IV PRN (20:43)
[2020-04-09] MEDS ORDERED: SACUBITRIL-VALSARTAN 97-103 MG TAB PO SCH (21:00)
[2020-04-09] MEDS ORDERED: RIVAROXABAN 20 MG TAB PO SCH (21:00)
[2020-04-09] MEDS ORDERED: DIGOXIN 0.125 MG TAB PO SCH (21:00)
[2020-04-09] MEDS ORDERED: POTASSIUM CHLORIDE CRTAB 20 MEQ TABCR PO SCH (21:00)
[2020-04-09] MEDS ORDERED: NSS + 20MEQ KCL 20 MEQ/1,000 ML BAG IV SCH (21:00)
[2020-04-09] MEDS ORDERED: AMIODARONE 200 MG TAB PO SCH (21:00)
[2020-04-09] MEDS ORDERED: GABAPENTIN 400 MG CAP PO SCH (21:30)
[2020-04-09] MEDS: EPLERENONE~ORDER AWAITING ACTION SCH (21:39)
[2020-04-09] MEDS ORDERED: ZOLPIDEM TARTRATE 10 MG TAB PO SCH (22:00)
[2020-04-09] MEDS ORDERED: clonazePAM 0.5 MG TAB PO SCH (22:00)
[2020-04-10] MEDS: EPLERENONE~ORDER AWAITING ACTION SCH ×2 (02:31→07:24)
[2020-04-10 05:31] LABS: BUN Creatinine Ratio 16.9 (10-20); Calcium 8.5 mg/dl (8.5-10.1); Creatinine Clr Calc Pharmacy 79.5 ml/min; Est GFR (African American) 61.3; Est GFR (Non-African American) 52.9; Potassium 4.1 mmol/L (3.5-5.1)
[2020-04-10] MEDS ORDERED: LEVOTHYROXINE SODIUM 100 MCG TABLET PO SCH (06:30)
--- NOTE | 2020-04-10 06:38 | Electrocardiogram Report ---
Test Reason : Blood Pressure : / mmHG Vent. Rate : 089 BPM Atrial Rate : 085 BPM P-R Int : 000 ms QRS Dur : 210 ms QT Int : 474 ms P-R-T Axes : 000 -60 048 degrees QTc Int : 576 ms Ventricular-paced rhythm Abnormal ECG When compared with ECG of 08-APR-2018 17:15, Vent. rate has increased BY 3 BPM Confirmed by Patel Castañeda ([id number]) on 04/10/2020 6:37:58 AM Referred By: Confirmed By:Patel Castañeda
[2020-04-10] MEDS ORDERED: carvediloL 25 MG TAB PO SCH (08:00)
[2020-04-10] MEDS ORDERED: MAGNESIUM OXIDE 400 MG TAB PO SCH (09:00)
[2020-04-10] MEDS ORDERED: GABAPENTIN 100 MG CAP PO SCH (09:00)
[2020-04-10] MEDS ORDERED: MULTIVITAMIN TAB PO SCH (09:00)
--- NOTE | 2020-04-10 10:02 | Discharge Summary ---
Date of Service April 10, 2020 Admission HPI Per Admitting Provider 59 y/o M who came to the ED s/p syncopal episode. Pt was shopping at the [employer] and "bent over and twisted" in such a way that he could feel his heart skip, which happens on occasion. He states the next thing he remembers is waking up to a information clerk cashier after he apparently passed out. He states that he felt a few more "skips" today than usual, but otherwise had a normal day for himself. Pt denies fever, SOB, chest pain, abd pain, n/v/c/d, LE pain or swelling. His main concern at this time is pain to his posterior head and R trap/clavicle. Pt states this has happened before, last time being about a year ago. He was se en in the ED at that time as well. ED physician spoke with Dr. Castañeda who recommends watching pt overnight for telemetry. Principal Diagnosis Pt is feeling much better today. His headache has mostly resolved. Still with pain along his R trap. No further heart "skips". Tolerating PO without issue. Pt denies fever, SOB, chest pain, abd pain, n/v/c/d, LE pain or swelling. Discharge Exam Constitutional WD/WN, vitals as above Eyes normal visual argueta by confrontation and + anicteric sclerae Neck normal visual inspection and trachea midline Respiratory normal respiratory effort, lungs clear to auscultation Cardiovascular Rate/Rhythm: regular rate and regular rhythm Gastrointestinal (Abdomen) Inspection/Auscultation: abdomen not distended Percussion/Palpation: abdomen soft; abdomen nontender Musculoskeletal Head/Neck/Chest: normocephalic and head atraumatic Skin no rashes, warm and dry Neurologic awake; not confused Speech / Cognition: normal speech Psychiatric A+Ox3, euthymic affect Discharge Data Allergies Allergy/AdvReac Type Severity Reaction Status Date / Time No Known Allergies Allergy Verified 04/09/20 16:54 Consultations 04/09/20 17:26 ED Decision to Admit Stat 04/09/20 20:43 Consult Cardiology Routine Ordered Studies 04/09/20 15:18 CT cervical spine wo con Stat CT head/brain wo con Stat Hospital Course (1) Syncope and collapse: Pt with ICD firing during this episode Found to be in vtach Per outpt cardiology note from 03/14: pt was found to have had 4 episodes of vtach over the 6 month period, but with no associated syncope. He is overdue for an ECHO and labs, however he declined at that time. CBC WNL Electrolytes WNL CXR neg for acute Digoxin WNL amio levels pending TSH WNL EKG is paced Trop neg x1 ECHO with EF 25-30% and no changes since prior ECHO Cardiology feels pt is stable for d/c and with f/u with Dr. Morton for further decisions regarding ongoing care PT IS AWARE THAT HE IS NOT PERMITTED TO DRIVE FOR 6 MONTHS (starting 04/09/20) Discussed by both Dr. Castañeda and myself [facility] will be alerted as well CT head neg for acute other than soft tissue swelling C-spine neg for acute (2) REBECCA (acute kidney injury): Baseline cr is 1.4 Cr is 1.6 on admission Back to 1.4 s/p IVF (3) Nonischemic cardiomyopathy: As above (4) Paroxysmal ventricular tachycardia: As above (5) Dyslipidemia: (6) Insomnia: Ambian as at home (7) Peripheral neuropathy: Gabapentin is 100mg AM, 400mg PM (8) ICD (implantable cardioverter-defibrillator), biventricular, in situ: Noted on last cardiology visit that battery will need replaced in the next several months (9) Hypothyroidism: TSH WNL (10) DVT prophylaxis: SCDs Total Time Total Time Spent Total Time Spent (In Minutes): >30 Total Time Includes: Examination of the Patient, Discharge Planning, Medication Reconciliation, Communication With Other Providers and Other Discharge Plan Discharge Items Patient Disposition: Home - Self-Care Reason For Visit: SYNCOPE Discharge Diagnosis: Syncope and ventricular tachycardia Activity: Resume your previous activity Driving/Machine Use: No driving for 6 months from 04/09 Non-emergency contact: Cryptologist Call non-emergency contact if: you have any medication questions and your symptoms worsen Follow-up/Referrals: Ricky Juarez MD [Primary Care Provider] - Diet: Regular Addtl Attending Provider Instructions: You should follow up with Dr. Morton in the next 1-2 weeks Pending Studies at Discharge: Yes Studies:: Amiodarone levels Formal ECHO read Stand-Alone Forms: My [employer], Smoking Cessation Medications and DC Order Prescriptions: Continued eplerenone 25 mg tablet 25 mg PO HS Qty: 90 RF: 3 Entresto 97-103 mg tablet 1 tab PO BID Qty: 180 RF: 3 digoxin [Digox] 125 mcg (0.125 mg) tablet 125 mcg PO HS Qty: 90 RF: 3 amiodarone 200 mg tablet 200 mg PO BID Qty: 180 RF: 3 gabapentin 100 mg capsule 100 - 400 mg PO BID RF: 0 torsemide 20 mg Tablet 20 mg PO BID PRN (Reason: Edema) RF: 0 clonazepam [Klonopin] 1 mg Tablet 1.5 mg PO HS RF: 0 magnesium oxide 400 mg Capsule 400 mg PO QAM RF: 0 potassium chloride 20 mEq Tablet Extended Release 20 meq PO HS RF: 0 multivitamin tablet 1 tab PO QAM RF: 0 zolpidem [Ambien] 10 mg tablet 10 mg PO HS RF: 0 carvedilol 25 mg tablet 25 mg PO BIDM RF: 0 levothyroxine 100 mcg tablet 100 mcg PO QAM RF: 0 rivaroxaban 20 mg tablet 20 mg PO HS RF: 0 Discharge Orders: Discharge Order (Routine); Ordered 04/10/20 Ordered By: Violetta Rojas Admission Data Admit Date/Time: 04/09/20 18:38 Attending Provider: Violetta Rojas Admit Provider: Violetta Rojas Primary Care Provider: Ricky Juarez Other Providers: Violetta Rojas ; Patel Castañeda Other Interventions: Discharge Summary Assessment (RN) Last Done: 04/10/20 09:56 Coding Level of Care Code D/C Day Management >30 mins Diagnoses Syncope and collapse R55 REBECCA (acute kidney injury) N17.9 Nonischemic cardiomyopathy I42.8 Paroxysmal ventricular tachycardia I47.2 Dyslipidemia E78.5 Insomnia G47.00 Peripheral neuropathy G62.9 ICD (implantable cardioverter-defibrillator), biventricular, in situ Z95.810 Hypothyroidism E03.9 DVT prophylaxis Z29.9
--- NOTE | 2020-04-10 10:22 | Cardiology Consultation ---
Date of Consultation April 10, 2020 Assessment & Plan (1) Ventricular fibrillation: (2) ICD (implantable cardioverter-defibrillator) discharge: (3) Syncope and collapse: (4) Atrial fibrillation: (5) Anticoagulated: (6) Nonischemic cardiomyopathy: (7) On amiodarone therapy: ASSESSMENT/PLAN: 1. Ventricular fibrillation s/p ICD shock: He has had several shocks (30+) over time. He does not wish to remain hospitalized. Amiodarone level was requested and remains pending. Okay for discharge from a cardiac perspective if he has not had any further events. Recommend close follow-up with electrophysiology to determine if any further treatment change should be considered long-term. 2. Atrial fibrillation: Reportedly permanent atrial fibrillation. Continue anticoagulation for stroke risk reduction. Continue home medications of carvedilol, digoxin, and amiodarone. 3. Nonischemic cardiomyopathy: He has not had an echo in some time according to Dr. Morton is outpatient note. He apparently has been reluctant to have repeat echo and labs and he admits this today as he is concerned about getting bad information. Dr. Morton has discussed obtaining repeat echo in the next few months as an outpatient. 4. Disposition: Can be discharged from a cardiac perspective. He was advised that he should not drive due to his syncopal event with VFib and ICD discharge. Recommend reporting to [facility]. He was agreeable to refrain from driving. Patient care communicated with Dr. Rojas of the primary hospitalist service. Greater than 40 minutes spent, with 50% time spent [id number] counseling patient and according therapy. Thank you for allowing me to participate in the care of your patient. Please call for any other questions or concerns. Sincerely, Isaak Castañeda M.D. History of Present Illness Reason for Consultation: VFib s/p ICD shock Requesting Physician: Violetta Rojas DO Attending Physician: Violetta Rojas DO History of Present Illness Mr. Lewis is a very pleasant 59-year-old gentleman with a history significant for nonischemic cardiomyopathy s/p biventricular ICD, ventricular tachycardia, permanent atrial fibrillation, and hypothyroidism. His primary finishing machine operator is Dr. Morton. At the age of 17, he was diagnosed with atrial fibrillation and reportedly heart failure. Over the years, he had tried several different antiarrhythmic meds, including quinidine, Tikosyn (developed long QT while initiating at [facility]), flecainide, and Multaq. Over time, he developed LV systolic dysfunction. In July of 2013, he had an episode of syncope and was found to have nonsustained ventricular tachycardia. His EF at that time was 15-20%. Biventricular ICD was placed on 08/18/2013. He was placed on amiodarone. He has reported 30+ ICD shocks over time. He believes that his last shocks were in May of 2019 when he had 2 shocks. He was last seen in the office by Dr. Morton on 03/14/2020 when it was noted that he was having episodes of VT but frequency actually had improved compared to his prior device interrogation. He has been feeling well and while at [employer] yesterday at approximately 2:30 p.m., he felt 1 second worth of palpitations described as a fluttering sensation. He then had a syncopal episode. When he awakened, he felt fine from a cardiac perspective but had pain in his head and neck after hitting the ground. He underwent cervical C-spine and head CT in the ER with no fractures noted. He had his ICD interrogated in the ER by [employer] rep and reportedly demonstrated ventricular fibrillation with appropriate ICD shock. Full record of this report was not yet available in the patient's EHR, but confirmed with [employer] rep. He states that he has been compliant with his medical therapy. He now feels well, back to baseline. He has torsemide ordered as needed but uses it less than once per month. He admits that he consumes more salt than he should and weighs himself a few days each week. His usual blood pressure at home is 90s/60 mmHg. He denies chest pain, shortness of breath, edema, orthopnea, or bleeding such as melena, hematochezia, or hematuria. He remains active. He wants to go home. Review of systems: As above. Review of systems otherwise negative/unremarkable. Family history: No known premature CAD. Father at age of 45, presumably from cardiomyopathy. Brother at 55 with cardiomyopathy. Social history: Denies smoking. Occasional alcohol. No drugs. Lives at home with his . No children. 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 Allergies Allergy/AdvReac Type Severity Reaction Status Date / Time No Known Allergies Allergy Verified 04/09/20 16:54 Home Medications Medication Instructions Recorded Confirmed Type clonazepam [Klonopin] 1.5 mg PO HS 03/07/18 04/09/20 History magnesium oxide 400 mg PO QAM 03/07/18 04/09/20 History potassium chloride 20 meq PO HS 03/07/18 04/09/20 History torsemide 20 mg PO BID PRN 03/07/18 04/09/20 History multivitamin 1 tab PO QAM tab 01/08/19 04/09/20 History eplerenone 25 mg tablet 25 mg PO HS #90 tab 04/22/19 04/09/20 Rx sacubitril 97 mg-valsartan 103 mg 1 tab PO BID #180 tab 04/22/19 04/09/20 Rx tablet zolpidem 10 mg tablet 10 mg PO HS 05/07/19 04/09/20 History digoxin 125 mcg (0.125 mg) tablet 125 mcg PO HS #90 tab 08/17/19 04/09/20 Rx gabapentin 100 mg capsule 100 - 400 mg PO BID 10/07/19 04/09/20 History amiodarone 200 mg tablet 200 mg PO BID #180 tab 01/22/20 04/09/20 Rx carvedilol 25 mg PO BIDM 04/09/20 04/09/20 History levothyroxine 100 mcg PO QAM 04/09/20 04/09/20 History rivaroxaban 20 mg PO HS 04/09/20 04/09/20 History Patient History Medical History Anxiety Atrial fibrillation since 17 yrs old; on xarelto follows with Dr. Morton Diverticulosis Former smoker Hypothyroidism ICD (implantable cardioverter-defibrillator) in place 2013 @ [facility]--[employer] Kidney stones Marijuana use Microprolactinoma On amiodarone therapy On anticoagulant therapy xarelto Thyroid nodule Surgical History History of appendectomy History of cardiac cath 1977--no stent History of colonoscopy History of tonsillectomy History of tooth extraction wisdom teeth S/P appendectomy Family History Family/Other Family hx of colon cancer maternal uncle Brother A-fib Cardiomyopathy Sudden cardiac arrest Father Sudden Grandfather (Paternal) No problems noted. Mother Cancer Social History Smoking Status: Never smoker Second Hand Exposure: Yes (father smoked); Hx Alcohol Use: Yes Alcohol type: beer Hx Substance Use: No Preferred Language: Latvian Communication Ability: Effective Clark Driver Required: No Beliefs That Will Affect Care: None Current Living Situation: Spouse Other Information That Helps Us Care for You: No Feels Safe at Home: Yes Safety Concerns: Feels Safe At This Time Assistive Devices: None Physical Exam Physical Exam: Gen.: No acute distress. Alert and oriented. HEENT: Anicteric sclera. Neck: No JVD. No bruits. Normal carotid upstrokes bilaterally. Cardiac: PMI was nonpalpable. No ventricular heave. Regular. Normal S1-S2. No murmurs, rubs, or gallops. Pulmonary: Clear to auscultation bilaterally without wheezes, rales, or rhonchi. Abdomen: Soft, nontender, nondistended, with normoactive bowel sounds. No bruits noted. Extremities: 2+ radial pulses bilaterally. 2+ posterior tibialis pulses bilaterally. No edema or cyanosis. No palpable cords. Psychiatric: Affect appears appropriate. Results & Data ([facility]) Vital Signs (Past 12 Hours) Vital Signs Temp Pulse Pulse Resp BP BP Pulse Ox 04/10/20 09:56 36.8 C 70 16 91/51 L 95 04/10/20 08:47 36.8 C 70 16 91/51 L 95 04/10/20 08:00 70 04/10/20 04:20 71 18 04/10/20 04:10 71 18 04/10/20 04:00 71 20 04/10/20 03:52 87 22 104/74 04/10/20 03:40 81 19 04/10/20 03:30 70 15 04/10/20 03:20 70 13 04/10/20 03:10 70 16 04/10/20 03:00 70 14 104/74 04/10/20 02:50 70 16 04/10/20 02:40 70 16 11/22/20 02:30 70 17 04/10/20 02:20 70 17 04/10/20 02:10 71 23 04/10/20 02:00 73 23 04/10/20 01:00 70 24 04/10/20 00:00 70 14 04/09/20 23:46 71 17 97/67 L 97 04/09/20 23:00 70 21 Laboratory Results Laboratory Results - last 24 hr 04/09/20 04/09/20 04/09/20 15:06 15:06 15:06 WBC 5.68 RBC 4.37 L Hgb 15.0 Hct 43.0 MCV 98.4 MCH 34.3 H MCHC 34.9 RDW Std Deviation 47.0 H RDW Coeff of Mikaela 13.1 Plt Count 185 MPV 10.6 H Immature Gran % (Auto) 0.7 Neut % (Auto) 66.4 Lymph % (Auto) 19.5 [place] % (Auto) 11.4 Eos % (Auto) 1.8 Baso % (Auto) 0.2 Neut # (Auto) 3.77 Lymph # (Auto) 1.11 L [place] # (Auto) 0.65 H Eos # (Auto) 0.10 Baso # (Auto) 0.01 Immature Gran # (Auto) 0.04 H PT 15.2 H INR 1.5 H APTT 38.1 H PTT Ratio 1.4 Sodium 141 Potassium 3.9 Chloride 112 H Carbon Dioxide 24 Anion Gap 5.0 BUN 25 H Creatinine 1.64 H Est Cr Clr Drug Dosing 68.8 Est GFR ( Amer) 51.5 Est GFR (Non-Af Amer) 44.5 BUN/Creatinine Ratio 15.3 Glucose 93 Calcium 9.0 Total Bilirubin 0.8 AST 22 ALT 32 Alkaline Phosphatase 75 Troponin I < 0.015 Total Protein 7.2 Albumin 3.6 Globulin 3.6 Albumin/Globulin Ratio 1.0 Lipase 153 TSH Amiodarone Desmethylamiodarone Digoxin SARS-CoV-2 Ag (Rapid) 04/09/20 04/09/20 04/09/20 15:06 17:37 17:37 WBC RBC Hgb Hct MCV MCH MCHC RDW Std Deviation RDW Coeff of Mikaela Plt Count MPV Immature Gran % (Auto) Neut % (Auto) Lymph % (Auto) [place] % (Auto) Eos % (Auto) Baso % (Auto) Neut # (Auto) Lymph # (Auto) [place] # (Auto) Eos # (Auto) Baso # (Auto) Immature Gran # (Auto) PT INR APTT PTT Ratio Sodium Potassium Chloride Carbon Dioxide Anion Gap BUN Creatinine Est Cr Clr Drug Dosing Est GFR ( Amer) Est GFR (Non-Af Amer) BUN/Creatinine Ratio Glucose Calcium Total Bilirubin AST ALT Alkaline Phosphatase Troponin I Total Protein Albumin Globulin Albumin/Globulin Ratio Lipase TSH 3.710 Amiodarone Pending Desmethylamiodarone Pending Digoxin 1.3 SARS-CoV-2 Ag (Rapid) 04/09/20 04/10/20 Unknown 04:50 WBC RBC Hgb Hct MCV MCH MCHC RDW Std Deviation RDW Coeff of Mikaela Plt Count MPV Immature Gran % (Auto) Neut % (Auto) Lymph % (Auto) [place] % (Auto) Eos % (Auto) Baso % (Auto) Neut # (Auto) Lymph # (Auto) [place] # (Auto) Eos # (Auto) Baso # (Auto) Immature Gran # (Auto) PT INR APTT PTT Ratio Sodium 140 Potassium 4.1 Chloride 110 H Carbon Dioxide 27 Anion Gap 3.0 BUN 24 H Creatinine 1.42 H Est Cr Clr Drug Dosing 79.5 Est GFR ( Amer) 61.3 Est GFR (Non-Af Amer) 52.9 BUN/Creatinine Ratio 16.9 Glucose 93 Calcium 8.5 Total Bilirubin AST ALT Alkaline Phosphatase Troponin I Total Protein Albumin Globulin Albumin/Globulin Ratio Lipase TSH Amiodarone Desmethylamiodarone Digoxin SARS-CoV-2 Ag (Rapid) Negative Diagnostic Findings Telemetry personally reviewed: Ventricular paced. No ventricular arrhythmia. ECG personally reviewed: ECG 04/09/2020: V paced 89 beats per minute. Head CT and cervical spine CT report reviewed as noted in HPI. Medications Administered Current Inpatient Medications Acetaminophen (Acetaminophen 325 Mg Tab) 650 mg PO Q4H PRN PRN Reason: Pain or Fever Stop: 05/09/20 20:42 Last Admin: 04/10/20 00:00 Dose: 650 mg Documented by: Amiodarone HCl (Amiodarone 200 Mg Tab) 200 mg PO BID FREDY Stop: 05/09/20 20:59 Last Admin: 04/09/20 21:15 Dose: 200 mg Documented by: Carvedilol (Carvedilol 25 Mg Tab) 25 mg PO BIDM [facility] Stop: 05/10/20 07:59 Clonazepam (Clonazepam 0.5 Mg Tab) 1.5 mg PO HSZ [facility] Stop: 05/09/20 21:59 Last Admin: 04/09/20 21:21 Dose: 1.5 mg Documented by: Digoxin (Digoxin 0.125 Mg Tab) 0.125 mg PO HS [facility] Stop: 05/09/20 20:59 Last Admin: 04/09/20 21:37 Dose: 0.125 mg Documented by: Gabapentin (Gabapentin 100 Mg Cap) 100 mg PO 0900,1200 [facility] Stop: 05/10/20 08:59 Gabapentin (Gabapentin 400 Mg Cap) 400 mg PO HS [facility] Stop: 05/09/20 21:29 Last Admin: 04/09/20 21:38 Dose: 400 mg Documented by: Potassium Chloride/Sodium Chloride (Normal Saline W/20 Meq Kcl) 20 meq in 1,000 mls @ 50 mls/hr IV .Q20H [facility] Stop: 05/09/20 20:59 Last Admin: 04/09/20 21:16 Dose: 50 mls/hr Documented by: Levothyroxine Sodium (Levothyroxine Sodium 100 Mcg Tablet) 100 mcg PO DAILYBB [facility] Stop: 05/10/20 06:29 Last Admin: 04/10/20 06:17 Dose: 100 mcg Documented by: Magnesium Hydroxide (Magnesium Hydroxide Susp 30 Ml Udc) 30 ml PO Q12H PRN PRN Reason: Constipation Stop: 05/09/20 20:42 Magnesium Oxide (Magnesium Oxide 400 Mg Tab) 400 mg PO QAM [facility] Stop: 05/10/20 08:59 Miscellaneous (Eplerenone~Order Awaiting Action) 1 ea N/A QS [facility] Stop: 05/09/20 21:14 Last Admin: 04/10/20 07:24 Dose: Not Given Documented by: Multivitamins (Multivitamin Tab) 1 tab PO QAM [facility] Stop: 05/10/20 08:59 Ondansetron HCl (Ondansetron Inj 2 Mg/Ml 2 Ml Vial) 4 mg IV Q6H PRN PRN Reason: Nausea Stop: 05/09/20 20:42 Potassium Chloride (Potassium Chloride Crtab 20 Meq Tabcr) 20 meq PO HS [facility] Stop: 12/21/20 20:59 Last Admin: 04/09/20 21:14 Dose: 20 meq Documented by: Rivaroxaban (Rivaroxaban 20 Mg Tab) 20 mg PO HS FREDY Stop: 05/09/20 20:59 Last Admin: 04/09/20 21:38 Dose: 20 mg Documented by: Sacubitril/Valsartan (Sacubitril-Valsartan 97-103 Mg Tab) 1 tab PO BID FREDY Stop: 05/09/20 20:59 Last Admin: 04/09/20 21:38 Dose: 1 tab Documented by: Torsemide (Torsemide 20 Mg Tab) 20 mg PO BID PRN PRN Reason: Edema Stop: 05/09/20 20:42 Last Admin: 04/09/20 21:14 Dose: 20 mg Documented by: Zolpidem Tartrate (Zolpidem Tartrate 10 Mg Tab) 10 mg PO HSZ FREDY Stop: 05/09/20 21:59 Last Admin: 04/09/20 21:19 Dose: 10 mg Documented by: PG Care Time/CCT Total # of Minutes Spent Total Time Spent with Patient: Total time spent is greater than 50% in coordination of care (as documented) at patient's floor/unit and/or counseling patient: Coding Level of Care Code 57473 Office/Outpt Visit, Est Diagnoses Ventricular fibrillation I49.01 ICD (implantable cardioverter-defibrillator) discharge Z45.02 Syncope and collapse R55 Atrial fibrillation I48.91 Anticoagulated Z79.01 Nonischemic cardiomyopathy I42.8 On amiodarone therapy Z79.899
--- NOTE | 2020-04-10 16:09 | XCELERA ---
[id number]
== END 2020-04-10 10:30 | disposition home or self-care (01) ==
LOC: 1E 15:10 → ED 15:10 → 1E 20:05
DX: G62.9 Polyneuropathy, unspecified; R55 Syncope and collapse; I47.2 Ventricular tachycardia; N17.9 Acute kidney failure, unspecified; I48.21 Permanent atrial fibrillation; E03.9 Hypothyroidism, unspecified; I42.9 Cardiomyopathy, unspecified; I49.01 Ventricular fibrillation; Z79.890 Hormone replacement therapy; Z79.899 Other long term (current) drug therapy; Z95.810 Presence of automatic (implantable) cardiac defibrillator; Z79.01 Long term (current) use of anticoagulants; Z87.891 Personal history of nicotine dependence

== ENCOUNTER 2020-06-28 21:13 | Observation (INO) ==
[2020-06-28 21:40] LABS: Basophils # (auto) 0.03 K/uL (0-0.2); Basophils % (auto) 0.5 %; Eosinophils # (auto) 0.19 K/uL (0-0.5); Eosinophils % (auto) 3.4 %; Hematocrit (blood only) 43.7 % (42-52); Hemoglobin 15.5 g/dL (14.0-18.0); Immature Granulocytes # (auto) 0.03 K/uL (0.00-0.02); Immature Granulocytes % (auto) 0.5 %; Lymphocytes # (auto) 1.33 K/uL (1.2-3.4); Lymphocytes % (auto) 23.9 %; Mean Corpuscular Hemoglobin 34.5 pg (25-34); Mean Corpuscular Hgb Conc 35.5 g/dL (32-36); Mean Corpuscular Volume 97.3 fL (80-100); Mean Platelet Volume 10.8 fL (7.4-10.4); Monocytes # (auto) 0.76 K/uL (0.11-0.59); Monocytes % (auto) 13.6 %; Neutrophils # (auto) 3.23 K/uL (1.4-6.5); Neutrophils % (auto) 58.1 %; Platelet Count 194 K/uL (130-400); RDW Coefficient of Variation 13.1 % (11.5-14.5); Red Blood Count 4.49 M/uL (4.7-6.1); White Blood Count 5.57 K/uL (4.8-10.8)
[2020-06-28 22:10] LABS: Alanine Aminotransferase 42 U/L (12-78); Albumin Level 3.7 gm/dl (3.4-5.0); Alkaline Phosphatase 77 U/L (45-117); BUN Creatinine Ratio 19.3 (10-20); Bilirubin,Total 0.4 mg/dl (0.2-1); Blood Urea Nitrogen 34 mg/dl (7-18); Calcium 9.5 mg/dl (8.5-10.1); Carbon Dioxide 26 mmol/L (21-32); Chloride 108 mmol/L (98-107); Creatinine Clr Calc Pharmacy 63.1 ml/min; Est GFR (African American) 46.4; Globulin 3.8 gm/dl (2.5-4.0); Glucose 92 mg/dl (70-99); Lipase 149 U/L (73-393); NT Pro B Type Natriuretic Pept 1157 pg/ml (0-900); Sodium 143 mmol/L (136-145); Total Protein 7.5 gm/dl (6.4-8.2); Troponin I < 0.015 ng/ml (0-0.045)
[2020-06-28 22:45] LABS: Aspartate Aminotransferase 27 U/L (15-37); Magnesium 2.1 mg/dl (1.8-2.4); Potassium 4.2 mmol/L (3.5-5.1)
[2020-06-28] MEDS ORDERED: 0.2 MICRON FILTER SET 1 EA IV ONE (22:57)
--- NOTE | 2020-06-28 23:09 | Emergency Department Note ---
Impression & Plan Recurrent ventricular tachycardia, On amiodarone therapy, Nonischemic cardiomyopathy, Anticoagulant long-term use, Implantable cardioverter- defibrillator (ICD) discharge ED Provider Note NAME: CLAYTON MISHRA AGE: 60 SEX: M ARRIVES VIA: Ambulance INFORMANT: Patient, ED PROVIDER(S): Taye Barajas MD CHIEF COMPLAINT: AICD shock PLAN: Disposition: Admit MEDICAL DECISION MAKING: The patient is a pleasant 60-year-old gentleman with a past medical history of CKD, nonischemic cardiomyopathy, status post biventricular ICD, history of p aroxysmal ventricular tachycardia on amiodarone therapy, history of atrial fibrillation on Xarelto who presents emerge department after receiving a shock approximately 30 minutes prior to arrival from his AICD after feeling preceding symptoms of fluttering in his chest which he was familiar with and so he prepared himself by kneeling down and holding onto the kitchen counter. He denies syncope with this episode as he did when he was admitted in March/2020 for similar event. He reports feeling healthy prior to today though yesterday he reports he felt he was more overloaded than usual and so took his torsemide as he does as needed when is needed and he admits that usually the day after he does this he feels more sluggish which he did today. Otherwise he denies any fevers, chills, cough, congestion, shortness of breath, nausea, vomiting, diarrhea, urinary symptoms. On arrival the patient is fatigued appearing but no acute distress, afebrile stable vital signs. He appears euvolemic at this time. EKG demonstrates ventricular paced rhythm. Chest x-ray negative for acute cardiopulmonary process per my preliminary review. WBC, H/H and platelets within normal limits. Chemistry without metabolic acidosis. Creatinine is 1.7 slightly higher from recent range of 1.4-1.6. Electrolytes unremarkable. LFTs unremarkable. Troponin negative/undetectable. BNP 1100 which is decreased from 1620 19. TSH within normal limits. COVID-19 RNA NAAT test is negative. Irrigation of the patient's AICD/PPM was performed and I discussed the results with the [employer] certified technician specialist who reports the patient indeed had ventricular tachycardia correlating with his onset of symptoms around 9:30 PM which subsequently failed treatment with ATP, initial low-dose shock and required second higher dose shock. Additionally around 1 PM the patient did have episode of NSVT which was followed by. Of ventricular tachycardia which also failed ATP and required low-dose shock that exceeded. Moreover the patient did have these 2 episodes a couple of weeks ago that required ATP for successful treatment of VT. The certified technician specialist also notes that the patient's device is nearing the end of its battery life, ~2-3months no difficult to say definitively given the patient received shocks today. Case was reviewed with [place] cardiology on-call, Dr. 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 Patient agrees wi plan for admission. Case was discussed with Dr. Velasquez, [facility] hospitalist, who will evaluate the patient for admission. Triage Nursing notes reviewed and agree them. Prior medical records reviewed Vital Signs: reviewed and remarkable for no significant abnormalities Differential diagnosis: Cardiac ischemia, aortic dissection, pulmonary embolism, pneumothorax, pneumonia, pericarditis, myocarditis, esophageal rupture, GERD, cholecystitis, pancreatitis, musculoskeletal, as well as other pathologies. ER treatment provided: See below. Diagnostics interpreted by me: ECG: Ventricular paced rhythm with occasional PACs with aberrant conduction, 97 bpm, no overt acute ischemia. Cardiac Monitoring: An order for continuous cardiac monitoring was placed and demonstrated Ventricular paced rhythm with occasional PACs with aberrant conduction, 97 bpm. Laboratory studies: See below Imaging studies: CXR: No acute cardiopulmonary process per my preliminary review. Consultation(s): [place] cardiology on-call, Dr. Morton. Dr. Velasquez [facility] hospitalist. HPI: The patient is a pleasant 60-year-old gentleman with a past medical history of CKD, nonischemic cardiomyopathy, status post biventricular ICD, history of paroxysmal ventricular tachycardia on amiodarone therapy, history of atrial fibrillation on Xarelto who presents emerge department after receiving a shock approximately 30 minutes prior to arrival from his AICD after feeling preceding symptoms of fluttering in his chest which he was familiar with and so he p repared himself by kneeling down and holding onto the kitchen counter. He denies syncope with this episode as he did when he was admitted in March/2020 for similar event. He reports feeling healthy prior to today though yesterday he reports he felt he was more overloaded than usual and so took his torsemide as he does as needed when is needed and he admits that usually the day after he does this he feels more sluggish which he did today. Otherwise he denies any fevers, chills, cough, congestion, shortness of breath, nausea, vomiting, diarrhea, urinary symptoms. ROS: See above HPI for pertinent positives & negatives. A total of 10 systems reviewed and were otherwise negative. PAST MEDICAL HISTORY:See Below PAST SURGICAL HISTORY:See Below FAMILY HISTORY:See Below SOCIAL HISTORY:See Below HOME MEDICATIONS:See Below ALLERGIES:See Below VITALS:See Below PHYSICAL EXAMINATION: GENERAL: Awake, alert, fatigued-appearing, in no distress HENT: Normocephalic, atraumatic. Oropharynx unremarkable. EYES: Normal conjunctiva. Sclera non-icteric. NECK: Supple. No nuchal rigidity. FROM. No JVD. RESPIRATORY: Clear to auscultation. CARDIAC: Regular rate, normal rhythm. Extremities warm and well perfused. Pulses equal. ABDOMEN: Soft, non-distended. No tenderness to palpation. No rebound or guarding. No masses. RECTAL: Deferred. MUSCULOSKELETAL: Chest examination reveals no tenderness. The back is symmetrical on inspection without obvious abnormality. There is no CVA tenderness to palpation. No joint edema. LOWER EXTREMITIES: Calves are equal size bilaterally and non-tender. No edema. No discoloration. NEURO: Normal sensorium. No sensory or motor deficits noted. SKIN: No rash or jaundice noted. ED COURSE: Critical Care: I have personally spent greater than 45 minutes of critical care time in the direct management of this patient. This includes bedside care, interpretation of diagnostic studies, and testing, discussion with consultants, patient, and family members, and other required patient management activities. This 45 minutes is in excess of all separately billable procedures. Taye Barajas MD Past Med/Surg History Medical History Anxiety Atrial fibrillation since 17 yrs old; on xarelto follows with Dr. Morton Diverticulosis Elevated prolactin level Former smoker Hypothyroidism ICD (implantable cardioverter-defibrillator) in place 2013 @ [facility]--[employer] Kidney stones Marijuana use On amiodarone therapy On anticoagulant therapy xarelto Pituitary abnormality Thyroid nodule Surgical History History of appendectomy History of cardiac cath 1977--no stent History of colonoscopy History of tonsillectomy History of tooth extraction wisdom teeth S/P appendectomy Family History Family/Other Family hx of colon cancer maternal uncle Brother A-fib Cardiomyopathy Sudden cardiac arrest Father Sudden Grandfather (Paternal) No problems noted. Mother Cancer Social History Smoking Status: Former smoker Second Hand Exposure: Yes (father smoked); Hx Alcohol Use: Yes Alcohol type: beer Hx Substance Use: No Preferred Language: Ukrainian Communication Ability: Effective Compliance Review Officer Required: No Beliefs That Will Affect Care: None Current Living Situation: Spouse Feels Safe at Home: Yes Assistive Devices: None Allergies Allergies Allergy/AdvReac Type Severity Reaction Status Date / Time No Known Allergies Allergy Verified 06/28/20 22:16 Home Meds Home Medications Medication Instructions Recorded Confirmed clonazepam [Klonopin] 1.5 mg PO HS 03/07/18 06/28/20 magnesium oxide 400 mg PO QAM 03/07/18 06/28/20 potassium chloride 20 meq PO HS 03/07/18 06/28/20 torsemide 20 mg PO BID PRN 03/07/18 06/28/20 multivitamin 1 tab PO QAM tab 01/08/19 06/28/20 zolpidem 10 mg tablet 10 mg PO HS 05/07/19 06/28/20 gabapentin 100 mg capsule 100 - 400 mg PO UD 10/07/19 06/28/20 carvedilol 25 mg PO BID 04/09/20 06/28/20 rivaroxaban 20 mg PO HS 04/09/20 06/28/20 Previous Rx's Medication Instructions Recorded digoxin 125 mcg (0.125 mg) tablet 125 mcg PO HS #90 tab 08/17/19 amiodarone 200 mg tablet 200 mg PO BID #180 tab 01/22/20 eplerenone 25 mg tablet 25 mg PO HS #90 tab 04/20/20 levothyroxine 100 mcg tablet 100 mcg PO QAM #30 tab 04/21/20 sacubitril 97 mg-valsartan 103 mg 1 tab PO BID #180 tab 05/03/20 tablet Results & Data (ED) Vital Signs Vital Signs - 24 hr 06/28/20 21:15 06/28/20 21:18 06/28/20 21:29 Temperature 36.7 C Temperature Source Oral Pulse Rate 97 H 84 Pulse Rate from SpO2 Sensor 84 Pulse Rhythm Irregular Pulse Strength Normal Respiratory Rate 18 26 H Respiratory Effort / Characteristics Non-Labored Spontaneous Respiratory Depth Normal Respiratory Pattern Regular Blood Pressure 118/78 118/78 Blood Pressure Mean 91 91 Blood Pressure Position Lying Pulse Oximetry 99 99 99 Oxygen Delivery Method Room Air Room Air Sepsis Recent Fever Within 48 Hours No Sepsis New/Unexplained Change in Mental Status N/A Sepsis Action Taken by Nursing No Action Required 06/28/20 21:30 06/28/20 22:00 06/28/20 22:31 Temperature Temperature Source Pulse Rate 81 70 70 Pulse Rate from SpO2 Sensor 84 69 70 Pulse Rhythm Pulse Strength Respiratory Rate 17 22 21 Respiratory Effort / Characteristics Respiratory Depth Respiratory Pattern Blood Pressure 106/69 103/71 80/62 L Blood Pressure Mean 81 81 68 Blood Pressure Position Pulse Oximetry 98 97 98 Oxygen Delivery Method Sepsis Recent Fever Within 48 Hours Sepsis New/Unexplained Change in Mental Status Sepsis Action Taken by Nursing 06/28/20 22:32 06/28/20 22:35 06/28/20 23:00 Temperature Temperature Source Pulse Rate 70 70 70 Pulse Rate from SpO2 Sensor 70 70 70 Pulse Rhythm Pulse Strength Respiratory Rate 20 25 H 20 Respiratory Effort / Characteristics Respiratory Depth Respiratory Pattern Blood Pressure 97/63 L 97/63 L Blood Pressure Mean 74 74 Blood Pressure Position Pulse Oximetry 99 97 98 Oxygen Delivery Method Sepsis Recent Fever Within 48 Hours Sepsis New/Unexplained Change in Mental Status Sepsis Action Taken by Nursing 06/28/20 23:15 06/28/20 23:30 06/28/20 23:31 Temperature Temperature Source Pulse Rate 70 70 70 Pulse Rate from SpO2 Sensor 70 70 70 Pulse Rhythm Pulse Strength Respiratory Rate 19 20 26 H Respiratory Effort / Characteristics Respiratory Depth Respiratory Pattern Blood Pressure 102/67 117/79 Blood Pressure Mean 78 91 Blood Pressure Position Pulse Oximetry 98 99 99 Oxygen Delivery Method Sepsis Recent Fever Within 48 Hours Sepsis New/Unexplained Change in Mental Status Sepsis Action Taken by Nursing 06/28/20 23:56 06/29/20 00:00 Temperature Temperature Source Pulse Rate 71 72 Pulse Rate from SpO2 Sensor 70 72 Pulse Rhythm Pulse Strength Respiratory Rate 21 27 H Respiratory Effort / Characteristics Respiratory Depth Respiratory Pattern Blood Pressure 117/79 110/73 Blood Pressure Mean 91 85 Blood Pressure Position Pulse Oximetry 99 100 Oxygen Delivery Method Sepsis Recent Fever Within 48 Hours Sepsis New/Unexplained Change in Mental Status Sepsis Action Taken by Nursing Laboratory Data Attestation: I reviewed the patient's lab results. Result diagrams: 06/28/20 21:10 06/28/20 22:56 Lab Results 06/28/20 06/28/20 06/28/20 Range/Units 21:10 21:10 22:56 WBC 5.57 (4.8-10.8) K/uL RBC 4.49 L (4.7-6.1) M/uL Hgb 15.5 (14.0-18.0) g/dL Hct 43.7 (42-52) % MCV 97.3 (80-100) fL MCH 34.5 H (25-34) pg MCHC 35.5 (32-36) g/dL RDW Std Deviation 47.0 H (36.4-46.3) fL RDW Coeff of Mikaela 13.1 (11.5-14.5) % Plt Count 194 (130-400) K/uL MPV 10.8 H (7.4-10.4) fL Immature Gran % (Auto) 0.5 % Neut % (Auto) 58.1 % Lymph % (Auto) 23.9 % Amite % (Auto) 13.6 % Eos % (Auto) 3.4 % Baso % (Auto) 0.5 % Neut # (Auto) 3.23 (1.4-6.5) K/uL Lymph # (Auto) 1.33 (1.2-3.4) K/uL Amite # (Auto) 0.76 H (0.11-0.59) K/uL Eos # (Auto) 0.19 (0-0.5) K/uL Baso # (Auto) 0.03 (0-0.2) K/uL Immature Gran # (Auto) 0.03 H (0.00-0.02) K/uL Sodium 143 (136-145) mmol/L Potassium 4.2 4.1 (3.5-5.1) mmol/L Chloride 108 H (98-107) mmol/L Carbon Dioxide 26 (21-32) mmol/L Anion Gap 9.0 (3-11) BUN 34 H (7-18) mg/dl Creatinine 1.78 H (0.6-1.4) mg/dl Est Cr Clr Drug Dosing 63.1 ml/min Est GFR ( Amer) 46.4 Est GFR (Non-Af Amer) 40.0 BUN/Creatinine Ratio 19.3 (10-20) Glucose 92 (70-99) mg/dl Calcium 9.5 (8.5-10.1) mg/dl Phosphorus 4.0 (2.5-4.9) mg/dl Magnesium 2.1 2.1 (1.8-2.4) mg/dl Total Bilirubin 0.4 (0.2-1) mg/dl Direct Bilirubin (0-0.2) mg/dl AST 27 21 (15-37) U/L ALT 42 (12-78) U/L Alkaline Phosphatase 77 (45-117) U/L Total Creatine Kinase 54 (39-308) U/L Troponin I < 0.015 (0-0.045) ng/ml NT-Pro-B Natriuret Pep 1157 H (0-900) pg/ml Total Protein 7.5 (6.4-8.2) gm/dl Albumin 3.7 (3.4-5.0) gm/dl Globulin 3.8 (2.5-4.0) gm/dl Albumin/Globulin Ratio 1.0 (0.9-2) Lipase 149 (73-393) U/L TSH 4.410 (0.300-4.500) uIu/ml Specimen Hemolysis COVID-19 Eval Order SARS-CoV-2, RNA, NAAT (NEGATIVE) 06/28/20 06/28/20 Range/Units 23:25 23:25 WBC (4.8-10.8) K/uL RBC (4.7-6.1) M/uL Hgb (14.0-18.0) g/dL Hct (42-52) % MCV (80-100) fL MCH (25-34) pg MCHC (32-36) g/dL RDW Std Deviation (36.4-46.3) fL RDW Coeff of Mikaela (11.5-14.5) % Plt Count (130-400) K/uL MPV (7.4-10.4) fL Immature Gran % (Auto) % Neut % (Auto) % Lymph % (Auto) % Amite % (Auto) % Eos % (Auto) % Baso % (Auto) % Neut # (Auto) (1.4-6.5) K/uL Lymph # (Auto) (1.2-3.4) K/uL Amite # (Auto) (0.11-0.59) K/uL Eos # (Auto) (0-0.5) K/uL Baso # (Auto) (0-0.2) K/uL Immature Gran # (Auto) (0.00-0.02) K/uL Sodium (136-145) mmol/L Potassium (3.5-5.1) mmol/L Chloride (98-107) mmol/L Carbon Dioxide (21-32) mmol/L Anion Gap (3-11) BUN (7-18) mg/dl Creatinine (0.6-1.4) mg/dl Est Cr Clr Drug Dosing ml/min Est GFR ( Amer) Est GFR (Non-Af Amer) BUN/Creatinine Ratio (10-20) Glucose (70-99) mg/dl Calcium (8.5-10.1) mg/dl Phosphorus (2.5-4.9) mg/dl Magnesium (1.8-2.4) mg/dl Total Bilirubin (0.2-1) mg/dl Direct Bilirubin (0-0.2) mg/dl AST (15-37) U/L ALT (12-78) U/L Alkaline Phosphatase (45-117) U/L Total Creatine Kinase (39-308) U/L Troponin I (0-0.045) ng/ml NT-Pro-B Natriuret Pep (0-900) pg/ml Total Protein (6.4-8.2) gm/dl Albumin (3.4-5.0) gm/dl Globulin (2.5-4.0) gm/dl Albumin/Globulin Ratio (0.9-2) Lipase (73-393) U/L TSH (0.300-4.500) uIu/ml Specimen Hemolysis COVID-19 Eval [facility] SARS-CoV-2, RNA, NAAT NEGATIVE (NEGATIVE) Administered Medications Amiodarone HCl/Dextrose (Nexterone / D5w) 360 mg in 200 mls @ 16.667 mls/hr IV .Q12H FREDY Stop: 07/28/20 22:59 Last Admin: 06/28/20 23:13 Dose: 0.5 mg/min, 16.7 mls/hr Documented by: [id number] Cosigned by: [id number] Discharge Plan Visit Data Chief Complaint: Cardiac Assessment Stated Complaint: CARDIAC ASSESSMENT ED Provider: Taye Barajas Discharge Problem: Recurrent ventricular tachycardia, On amiodarone therapy, Nonischemic cardio myopathy, Anticoagulant long-term use, Implantable cardioverter-defibrillator (ICD) discharge Patient Disposition: Admitted As Inpatient Discharge Instructions Interventions: ED Discharge Assessment Last Done: 06/29/20 00:25
[2020-06-28] MEDS: AMIODARONE / D5W 360 MG/200 ML BAG IV SCH (23:13)
[2020-06-28 23:17] LABS: Potassium 4.1 mmol/L (3.5-5.1)
[2020-06-28 23:25] LABS: Magnesium 2.1 mg/dl (1.8-2.4)
--- NOTE | 2020-06-28 23:46 | History & Physical Report ---
Date of Service June 28, 2020 History of Present Illness Primary Care Provider: Ricky Juarez MD Allergies Allergy/AdvReac Type Severity Reaction Status Date / Time No Known Allergies Allergy Verified 06/28/20 22:16 Home Medications Medication Instructions Recorded Confirmed Type clonazepam [Klonopin] 1.5 mg PO HS 03/07/18 06/28/20 History magnesium oxide 400 mg PO QAM 03/07/18 06/28/20 History potassium chloride 20 meq PO HS 03/07/18 06/28/20 History torsemide 20 mg PO BID PRN 03/07/18 06/28/20 History multivitamin 1 tab PO QAM tab 01/08/19 06/28/20 History zolpidem 10 mg tablet 10 mg PO HS 05/07/19 06/28/20 History digoxin 125 mcg (0.125 mg) tablet 125 mcg PO HS #90 tab 08/17/19 06/28/20 Rx gabapentin 100 mg capsule 100 - 400 mg PO UD 10/07/19 06/28/20 History amiodarone 200 mg tablet 200 mg PO BID #180 tab 01/22/20 06/28/20 Rx carvedilol 25 mg PO BID 04/09/20 06/28/20 History rivaroxaban 20 mg PO HS 04/09/20 06/28/20 History eplerenone 25 mg tablet 25 mg PO HS #90 tab 04/20/20 06/28/20 Rx levothyroxine 100 mcg tablet 100 mcg PO QAM #30 tab 04/21/20 06/28/20 Rx sacubitril 97 mg-valsartan 103 mg 1 tab PO BID #180 tab 05/03/20 06/28/20 Rx tablet Past Med/Surg History Medical History (Updated 06/21/20 @ 11:45 by Nahid Morton MD) Anxiety Atrial fibrillation since 17 yrs old; on xarelto follows with Dr. Morton Diverticulosis Elevated prolactin level Former smoker Hypothyroidism ICD (implantable cardioverter-defibrillator) in place 2013 @ [facility]--[employer] Kidney stones Marijuana use On amiodarone therapy On anticoagulant therapy xarelto Pituitary abnormality Thyroid nodule Surgical History History of appendectomy History of cardiac cath 1977--no stent History of colonoscopy History of tonsillectomy History of tooth extraction wisdom teeth S/P appendectomy Family History Family/Other Family hx of colon cancer maternal uncle Brother A-fib Cardiomyopathy Sudden cardiac arrest Father Sudden Grandfather (Paternal) No problems noted. Mother Cancer Social History Smoking Status: Former smoker Second Hand Exposure: Yes (father smoked); Hx Alcohol Use: Yes Alcohol type: beer Hx Substance Use: No Preferred Language: Haitian Communication Ability: Effective Balance Wheel Hand Filer Required: No Beliefs That Will Affect Care: None Current Living Situation: Spouse Feels Safe at Home: Yes Assistive Devices: None Results & Data Results & Data ([facility]) Vital Signs (Past 12 Hours) Vital Signs Temp Pulse Resp BP Pulse Ox 06/28/20 23:15 70 19 102/67 98 06/28/20 23:00 70 20 98 06/28/20 22:35 70 25 H 97/63 L 97 06/28/20 22:32 70 20 97/63 L 99 06/28/20 22:31 70 21 80/62 L 98 06/28/20 22:00 70 22 103/71 97 06/28/20 21:30 81 17 106/69 98 06/28/20 21:29 99 06/28/20 21:18 84 26 H 118/78 99 06/28/20 21:15 36.7 C 97 H 18 118/78 99
--- NOTE | 2020-06-29 00:03 | History & Physical Report ---
Date of Service June 29, 2020 Assessment & Plan (1) ICD (implantable cardioverter-defibrillator) discharge: 60 yo non-ischemic cardiomyopathy with AICD in place, AFib on chronic Xarelto therapy, CKD, hypothyroidism admitted for ICD discharge x2. Non-ischemic cardiomyopathy: - Presented with complaint of ICD firing at home causing a passing out event, found on interrogation to have 3 VTach/VFib episodes since 2019 with 2 successful shocks and 1 failed shock. - Of note, patient's ICD battery is running low and he is due for replacement which is scheduled for 07/05/2020. - Last Echo performed 04/10/2020 showed moderately dilated left and right ventricles with reduced systolic function (EF 25-30%), global hypokinesis, severe biatrial dilation. - Arrhythmia occurred in the setting of dietary indiscretion the day prior with a lot of salty food. Possible that due to his poor EF this one day of poor fluid exchange due to high salt content caused myocardial stretching leading to increased risk of ventricular dysrhythmia. - Torsemide held as patient appears clinically euvolemic. Encourage PO fluids. Low salt diet. - Cardiology consulted, Dr. Morton made aware of patient. - Plan for amiodarone drip at this time with Cardiology consult in the morning. - Continue other home medications; Coreg, eplerenone, digoxin. Syncope: - Patient endorses syncope at home when ICD fired from a kneeling height, causing him to hit the back of his head. - Given that patient is on chronic AC, advised CT Head. Patient defers at this time. - Patient AAOx3 without focal neurologic deficits. - Neuro checks qshift, with urgent CT Head if any changes. Patient aware and agrees. AFib: - On chronic Xarelto therapy, and carvedilol/amiodarone for rate/rhythm control. - Hold Eliquis until seen by Cardiology in AM. - Patient current on amiodarone gtt, hold PO amiodarone. - Continue carvedilol. CKD: - History of, with baseline creatinine ~1.5. - Did take his prn torsemide due to dietary indiscretion causing him to feel swollen in feet and face. - Hold torsemide at this time, encourage PO fluid intake. Hypothyroidism: - TSH normal in ER. - Continue home levothyroxine dosing. Code Status: FULL CODE FEN/GI: Heart Healthy, low sodium diet DVT ppx: holding Xarelto night dose, SCDs for now with likely restart tomorrow AM Dispo: PCU for continuous cardiac monitoring, amiodarone gtt, Cardiology consult in AM (2) Nonischemic cardiomyopathy: (3) ICD (implantable cardioverter-defibrillator), biventricular, in situ: (4) Hypothyroidism: (5) Anticoagulant long-term use: (6) Atrial fibrillation: (7) Syncope and collapse: History of Present Illness Chief Complaint: ICD discharge Primary Care Provider: Ricky Juarez MD 60 yo non-ischemic cardiomyopathy with AICD in place, AFib on chronic Xarelto therapy, CKD, hypothyroidism presented to ER following a discharge of his AICD at home causing him to have a syncopal event and fall from a kneeling height. He did feel some palpitations prior to the syncopal event which prompted his effort to move toward the floor. Reports he did hit his head. Does not have any head pain. No chest pain, SOB, headache, abdominal pain, nausea. No recent fevers or chills. He does endorse some lightheadedness with sitting up that resolves with lying down. Reports that earlier today he may have had another ICD discharge, as he recalls feeling like he "zoned out" for a few seconds earlier in the day while he was on the couch. Admits to dietary indiscretion on [facility] Saturday and yesterday, with a significant amount of salty food. Did take torsemide today as he was feeling more swollen in his legs and face. Reports that he has had his ICD fire in two other instances in the past after taking torsemide for dietary indiscretion. In the ER his ICD was interrogated and he was found to have a total of three discharges (2 successful one failed) since May [address] Morton was contacted who advised starting amiodarone gtt. Patient has been asymptomatic since arrival to ER. Of note, patient is scheduled to have his AICD replaced next Saturday (07/05) due to the battery being low. Allergies Allergy/AdvReac Type Severity Reaction Status Date / Time No Known Allergies Allergy Verified 06/28/20 22:16 Home Medications Medication Instructions Recorded Confirmed Type clonazepam [Klonopin] 1.5 mg PO HS 03/07/18 06/28/20 History magnesium oxide 400 mg PO QAM 03/07/18 06/28/20 History potassium chloride 20 meq PO HS 03/07/18 06/28/20 History torsemide 20 mg PO BID PRN 03/07/18 06/28/20 History multivitamin 1 tab PO QAM tab 01/08/19 06/28/20 History zolpidem 10 mg tablet 10 mg PO HS 05/07/19 06/28/20 History digoxin 125 mcg (0.125 mg) tablet 125 mcg PO HS #90 tab 08/17/19 06/28/20 Rx gabapentin 100 mg capsule 100 - 400 mg PO UD 10/07/19 06/28/20 History amiodarone 200 mg tablet 200 mg PO BID #180 tab 01/22/20 06/28/20 Rx carvedilol 25 mg PO BID 04/09/20 06/28/20 History rivaroxaban 20 mg PO HS 04/09/20 06/28/20 History eplerenone 25 mg tablet 25 mg PO HS #90 tab 04/20/20 06/28/20 Rx levothyroxine 100 mcg tablet 100 mcg PO QAM #30 tab 04/21/20 06/28/20 Rx sacubitril 97 mg-valsartan 103 mg 1 tab PO BID #180 tab 05/03/20 06/28/20 Rx tablet Past Med/Surg History Medical History Anxiety Atrial fibrillation since 17 yrs old; on xarelto follows with Dr. Morton Diverticulosis Elevated prolactin level Former smoker Hypothyroidism ICD (implantable cardioverter-defibrillator) in place 2013 @ [facility]--[employer] Kidney stones Marijuana use On amiodarone therapy On anticoagulant therapy xarelto Pituitary abnormality Thyroid nodule Surgical History History of appendectomy History of cardiac cath 1977--no stent History of colonoscopy History of tonsillectomy History of tooth extraction wisdom teeth S/P appendectomy Family History Family/Other Family hx of colon cancer maternal uncle Brother A-fib Cardiomyopathy Sudden cardiac arrest Father Sudden Grandfather (Paternal) No problems noted. Mother Cancer Social History Smoking Status: Former smoker Smoking End Date: 1999; Second Hand Exposure: No; Do You Dip or Chew Tobacco: No; Tobacco Cessation Education Requested by Patient: No Hx Alcohol Use: Yes Alcohol type: beer, wine and hard liquor Hx Substance Use: No Preferred Language: Indonesian Communication Ability: Effective Assembly Stock Supervisor Required: No Beliefs That Will Affect Care: None Current Living Situation: Spouse Other Information That Helps Us Care for You: No Feels Safe at Home: Yes Safety Concerns: Feels Safe At This Time Assistive Devices: Contacts Review of Systems Review of Systems: All systems reviewed & are unremarkable except as noted in HPI & below Constitutional: no fever, no chills and no malaise Respiratory: no cough and no dyspnea Cardiovascular: no chest pain, no palpitations and no edema Gastrointestinal: no abdominal pain, no constipation and no diarrhea/loose stools Physical Exam Constitutional: WD/WN, vitals as above Eyes: PERRL, conjunctivae normal, anicteric sclerae ENMT: external ear and nose normal, oropharynx normal Neck: normal visual inspection Respiratory: normal respiratory effort, lungs clear to auscultation Cardiovascular: Rate/Rhythm: + irregularly irregular Heart Sounds: no murmur Extremities: + edema (1+ bilateral LE) Gastrointestinal (Abdomen): normal bowel sounds, soft, nontender, no hepatosplenomegaly Musculoskeletal: no cyanosis or clubbing, extremities motor strength 5/5 Skin: no rashes, warm and dry Neurologic: AAOx3, normal speech. PERRL, EOMI, no nystagmus. Bilateral UE, LE, and face without sensory or motor deficits. No tremor. Psychiatric: A+Ox3, euthymic affect Results & Data Results & Data ([facility]) Vital Signs (Past 12 Hours) Vital Signs Temp Pulse Resp BP Pulse Ox 06/28/20 23:15 70 19 102/67 98 06/28/20 23:00 70 20 98 06/28/20 22:35 70 25 H 97/63 L 97 06/28/20 22:32 70 20 97/63 L 99 06/28/20 22:31 70 21 80/62 L 98 06/28/20 22:00 70 22 103/71 97 02/09/21 21:30 81 17 106/69 98 06/28/20 21:29 99 06/28/20 21:18 84 26 H 118/78 99 06/28/20 21:15 36.7 C 97 H 18 118/78 99 Code Status & VTE Plan VTE Prophylaxis Plan VTE Prophylaxis will be ordered: Yes Supervising Physician Co-Signing Physician Notes Patient seen and examined, chart reviewed, case discussed with Dr. Heath and I agree with the assessment and plan as documented above. Briefly, patient is a 60yo male with history of NICM, EF of 25-30%, AF/PVT/VF with strong family histo ry of SCD with AICD in place. He follows with Cardiology and is due to have his battery on on his AICD changed next week. He presents after AICD shock delivered this evening x 2. He states that he ate poorly during the [place] with more salty foods than usual. He did note a little LED and some slight puffiness in his face which prompted him to take a Torsemide yesterday. He reports good diuretic effect from the Torsemide - states he was up all night urinating. Edema improved. He has not been checking his weight routinely of late but it is similar to prior admissions. On exam he is afebrile, HD stable, NAD Skin - warm, dry, intact HEENT - NC, slightly tender on left side from mild trauma after fall, PERRL, EOMI, MMM, Neck supple, tenderness of left side of neck , no JVD Heart - +S1/S2, regular, no m/r/g Lungs - CTA Abd - +BS, soft, NT/ND Ext- cool hands, 2+ pulses Neuro - no focal deficits Labs and images reviewed [employer] interrogation reviewed Assessment/Plan: -Amiodarone gtt initiated in ER -Will continue other medications - Carvedilol, Eplerenone, Digoxin, Entresto, Rivaroxaan -Cardiology assessment appreciated -Remainder of exam as above Resident Activity Tracking Resident Involvement: Resident Care Provided Care Provided: Adult Hospital Medicine (1) Atrial fibrillation Atrial fibrillation type: permanent Qualified Code(s): I48.21 - Permanent atrial fibrillation (2) Hypothyroidism Hypothyroidism type: due to medication Qualified Code(s): E03.2 - Hypothyroidism due to medicaments and other exogenous substances
[2020-06-29] MEDS ORDERED: POLYETHYLENE (MIRALAX) 17 GM PACK PO PRN (01:06)
[2020-06-29] MEDS ORDERED: ACETAMINOPHEN 325 MG TAB PO PRN (01:06)
[2020-06-29] MEDS: EPLERENONE~ORDER AWAITING ACTION SCH ×3 (01:27→15:34)
[2020-06-29] MEDS ORDERED: ZOLPIDEM TARTRATE 10 MG TAB PO ONE (02:00)
[2020-06-29] MEDS ORDERED: clonazePAM 0.5 MG TAB PO ONE (02:00)
[2020-06-29] MEDS: SACUBITRIL-VALSARTAN 97-103 MG TAB PO SCH ×2 (02:12→13:15)
[2020-06-29] MEDS: carvediloL 25 MG TAB PO SCH ×2 (02:12→13:15)
[2020-06-29 06:03] LABS: Hematocrit (blood only) 40.9 % (42-52); Hemoglobin 14.2 g/dL (14.0-18.0); Mean Corpuscular Hemoglobin 33.6 pg (25-34); Mean Corpuscular Hgb Conc 34.7 g/dL (32-36); Mean Corpuscular Volume 96.9 fL (80-100); Mean Platelet Volume 10.7 fL (7.4-10.4); Platelet Count 174 K/uL (130-400); RDW Coefficient of Variation 13.3 % (11.5-14.5); RDW Standard Deviation 46.7 fL (36.4-46.3); Red Blood Count 4.22 M/uL (4.7-6.1); White Blood Count 5.46 K/uL (4.8-10.8)
[2020-06-29] MEDS ORDERED: LEVOTHYROXINE SODIUM 100 MCG TABLET PO SCH (06:30)
[2020-06-29 06:37] LABS: BUN Creatinine Ratio 22.1 (10-20); Calcium 8.7 mg/dl (8.5-10.1); Est GFR (African American) 55.7; Magnesium 2.1 mg/dl (1.8-2.4); Phosphorus 3.7 mg/dl (2.5-4.9)
--- NOTE | 2020-06-29 07:06 | XRay Report ---
XR chest 1V portable CLINICAL HISTORY: Atypical chest pain COMPARISON STUDY: 04/09/2020 FINDINGS: The heart is mildly enlarged. There is a left subclavian pacer/defibrillator. There is no f ailure. There is no lobar consolidation. There are no large pleural effusions.[ IMPRESSION: Stable cardiomegaly. No acute findings. ACT 112: Negative or not required by law. Electronically signed by: Blu Pandey M.D. 06/29/2020 7:04 AM
--- NOTE | 2020-06-29 07:16 | Billing Data ---
Date of Service June 29, 2020 Coding Level of Care Code 90998 Initial Inpt Care Lvl 3
--- NOTE | 2020-06-29 08:32 | Electrocardiogram Report ---
Test Reason : Blood Pressure : / mmHG Vent. Rate : 097 BPM Atrial Rate : 097 BPM P-R Int : 000 ms QRS Dur : 170 ms QT Int : 444 ms P-R-T Axes : 023 248 057 degrees QTc Int : 563 ms Ventricular-paced rhythm with occasional sinus complexes and Premature atrial complexes with Aberrant conduction Biventricular pacemaker detected Abnormal ECG When compared with ECG of 10-APR-2020 07:10, Aberrant conduction is now Present Vent. rate has increased BY 24 BPM Confirmed by Andrew Jeff ([id number]) on 06/29/2020 8:31:54 AM Referred By: REFERRED SELF Confirmed By:Andrew Jeff
--- NOTE | 2020-06-29 08:32 | Electrocardiogram Report ---
Test Reason : Blood Pressure : / mmHG Vent. Rate : 075 BPM Atrial Rate : 025 BPM P-R Int : 000 ms QRS Dur : 204 ms QT Int : 518 ms P-R-T Axes : 000 -74 077 degrees QTc Int : 578 ms Ventricular-paced rhythm Biventricular pacemaker detected Abnormal ECG When compared with ECG of 28-JUN-2020 21:19, Aberrant conduction is no longer Present Vent. rate has decreased BY 22 BPM Confirmed by Andrew Jeff ([id number]) on 06/29/2020 8:32:03 AM Referred By: REFERRED SELF Confirmed By:Andrew Jeff
[2020-06-29] MEDS: GABAPENTIN 100 MG CAP PO SCH ×2 (08:55→12:10)
[2020-06-29] MEDS ORDERED: MAGNESIUM OXIDE 400 MG TAB PO SCH (09:00)
[2020-06-29] MEDS ORDERED: MULTIVITAMIN TAB PO SCH (09:00)
[2020-06-29] MEDS: AMIODARONE / D5W 360 MG/200 ML BAG IV SCH (10:04)
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
[2020-06-29] MEDS ORDERED: hydroCHLOROthiazide 25 MG TAB PO SCH (12:55)
[2020-06-29] MEDS ORDERED: GABAPENTIN 400 MG CAP PO SCH (17:00)
[2020-06-29] MEDS ORDERED: AMIODARONE 200 MG TAB PO SCH (21:00)
[2020-06-29] MEDS ORDERED: RIVAROXABAN 20 MG TAB PO SCH (21:00)
[2020-06-29] MEDS ORDERED: DIGOXIN 0.125 MG TAB PO SCH (21:00)
[2020-06-29] MEDS ORDERED: ZOLPIDEM TARTRATE 10 MG TAB PO SCH (21:00)
[2020-06-29] MEDS ORDERED: clonazePAM 0.5 MG TAB PO SCH (21:00)
[2020-06-29] MEDS ORDERED: POTASSIUM CHLORIDE CRTAB 20 MEQ TABCR PO SCH (21:00)
--- NOTE | 2020-06-29 23:13 | Discharge Summary ---
Date of Service June 29, 2020 Admission HPI Per Admitting Provider 60 yo non-ischemic cardiomyopathy with AICD in place, AFib on chronic Xarelto therapy, CKD, hypothyroidism presented to ER following a discharge of his AICD at home causing him to have a syncopal event and fall from a kneeling height. He did feel some palpitations prior to the syncopal event which prompted his effort to move toward the floor. Reports he did hit his head. Does not have any head pain. No chest pain, SOB, headache, abdominal pain, nausea. No recent fevers or chills. He does endorse some lightheadedness with sitting up that resolves with lying down. Reports that earlier today he may have had another ICD discharge, as he recalls feeling like he "zoned out" for a few seconds earlier in the day while he was on the couch. Admits to dietary indiscretion on Superbowl Saturday and yesterday, with a significant amount of salty food. Did take torsemide today as he was feeling more swollen in his legs and face. Reports that he has had his ICD fire in two other instances in the past after taking torsemide for dietary indiscretion. In the ER his ICD was interrogated and he was found to have a total of three discharges (2 successful one failed) since May [address] Morton was contacted who advised starting amiodarone gtt. Patient has been asymptomatic since arrival to ER. Of note, patient is scheduled to have his AICD replaced next Saturday (07/05) due to the battery being low. Principal Diagnosis Ventricular tachycardia, syncope, ICD firing Discharge Exam Constitutional WD/WN, vitals as above Eyes PERRL, conjunctivae normal, anicteric sclerae ENMT external ear and nose normal, oropharynx normal Neck trachea midline, no thyromegaly Respiratory normal respiratory effort, lungs clear to auscultation Cardiovascular RRR, no murmur, no edema Chest (Breasts) Chest: normal inspection of chest Gastrointestinal (Abdomen) normal bowel sounds, soft, nontender, no hepatosplenomegaly Musculoskeletal Extremities: extremities normal to inspection; no cyanosis and no clubbing Skin no rashes, warm and dry Neurologic moves all extremities and awake; no focal motor deficits Psychiatric A+Ox3, euthymic affect Lymphatic no lymphedema Discharge Data Allergies Allergy/AdvReac Type Severity Reaction Status Date / Time No Known Allergies Allergy Verified 06/28/20 22:16 Consultations 06/28/20 22:59 ED Decision to Admit Stat 06/29/20 01:06 Consult Cardiology Routine Ordered Studies Chest x-ray Hospital Course (1) ICD (implantable cardioverter-defibrillator) discharge: This patient is a 60 yo male with a history of non-ischemic cardiomyopathy/chronic systolic CHF with AICD in place, permanent AFib on chronic Xarelto therapy, CKD stage III, hypothyroidism admitted for ICD discharge x2. - Presented with complaint of ICD firing at home causing syncope, found on interrogation to have 3 VTach/VFib episodes since 2019 with 2 successful shocks and 1 failed shock. - Of note, patient's ICD battery is running low and he is due for replacement which is scheduled for 07/05/2020. - Last Echo performed 04/10/2020 showed moderately dilated left and right ventricles with reduced systolic function (EF 25-30%), global hypokinesis, severe biatrial dilation. - Arrhythmia occurred in the setting of dietary indiscretion the day prior with a lot of salty food. Possible that due to his poor EF this one day of poor fluid exchange due to high salt content caused myocardial stretching leading to increased risk of ventricular dysrhythmia. Patient reports this is the fourth time he has had ICD firing after taking torsemide and thinks it is from too rapid of a fluid shift due to torsemide use - Cardiology consulted, Dr. Morton-appreciate consultation -Initially was on amiodarone drip-this was discontinued and he will be continued on his usual p.o. amiodarone Pacer interrogation was performed and reviewed by rig hand - Continue other home medications; Coreg, eplerenone, digoxin, Entresto, however digoxin level was elevated at 1.5-decrease digoxin level to every other day dosing. -Plan is for possible referral back to [facility] electrophysiology to discuss ablation for V. tach -Stable for discharge back to home on current p.o. dose of amiodarone and adding HCTZ for low-dose diuretic (2) Nonischemic cardiomyopathy: As above Adding on HCTZ 25 mg once daily as per cardiology for low-dose daily diuretic rather than using high-dose torsemide (3) ICD (implantable cardioverter-defibrillator), biventricular, in situ: Noted as above With generator exchange planned for on Saturday (4) Hypothyroidism: TSH normal here 4.4 Continue home levothyroxine (5) Anticoagulant long-term use: On Xarelto for permanent atrial fibrillation Held last night but can restart tonight on discharge (6) Atrial fibrillation: Permanent atrial fibrillation continue rate control with carvedilol Xarelto for anticoagulation (7) Syncope and collapse: Syncope: - Patient endorses syncope at home when ICD fired from a kneeling height, causing him to hit the back of his head. - Given that patient is on chronic AC, advised CT Head. Patient defers at this time. - Patient AAOx3 without focal neurologic deficits. Continued that way throughout his admission (8) CKD (chronic kidney disease) stage 3, GFR 30-59 ml/min: - History of, with baseline creatinine ~1.5. - Did take his prn torsemide due to dietary indiscretion causing him to feel swollen in feet and face. - Hold torsemide at this time, encourage PO fluid intake. Starting HCTZ Follow BMP as an outpatient Avoid nephrotoxins Creatinine down to 1.5 on discharge (9) Ventricular fibrillation: As above (10) Chronic systolic (congestive) heart failure: As above and ischemic cardiomyopathy (11) Insomnia: Continue home meds (12) Peripheral neuropathy: Continue home gabapentin (13) Paroxysmal ventricular tachycardia: As above Disposition-stable for discharged home with close follow-up with cardiology Total Time Total Time Spent Total Time Spent (In Minutes): 35 minutes Total Time Includes: Examination of the Patient, Discharge Planning, Medication Reconciliation and Communication With Other Providers (Cardiology) Discharge Plan Discharge Items Patient Disposition: Home - Self-Care Reason For Visit: ICD FIRING, NON-ISCHEMIC CARDIOMYOPATHY Discharge Diagnosis: ICD Firing, Ventricular tachycardia/Ventricular fibrillation Condition on Discharge: Good Activity: Resume your previous activity Non-emergency contact: Primary Care Provider and Plant Custodian Call non-emergency contact if: you have any medication questions and your symptoms worsen Follow-up/Referrals: Nahid Morton MD [Physician] - (Please follow up on Saturday for your p acemaker/AICD battery exchange as scheduled.) Ricky Juarez MD [Primary Care Provider] - (Please follow up within 1-2 weeks) Diet: Low Sodium (2gm) Addtl Attending Provider Instructions: Please decrease your digoxin to every other day. You were started on HCTZ to be taken with your morning medications as a low dose diuretic. Please follow up with Cardiology as scheduled on . Pending Studies at Discharge: No Stand-Alone Forms: [facility] Medications and DC Order Prescriptions: New hydrochlorothiazide 25 mg Tablet 25 mg PO QAM Qty: 30 RF: 0 Continued amiodarone 200 mg tablet 200 mg PO BID Qty: 180 RF: 3 eplerenone 25 mg tablet 25 mg PO HS Qty: 90 RF: 3 levothyroxine 100 mcg tablet 100 mcg PO QAM Qty: 30 RF: 1 Entresto 97-103 mg tablet 1 tab PO BID Qty: 180 RF: 3 gabapentin 100 mg capsule 100 - 400 mg PO UD RF: 0 torsemide 20 mg Tablet 20 mg PO BID PRN (Reason: Edema) RF: 0 clonazepam [Klonopin] 1 mg Tablet 1.5 mg PO HS RF: 0 magnesium oxide 400 mg Capsule 400 mg PO QAM RF: 0 potassium chloride 20 mEq Tablet Extended Release 20 meq PO HS RF: 0 multivitamin tablet 1 tab PO QAM RF: 0 zolpidem [Ambien] 10 mg tablet 10 mg PO HS RF: 0 carvedilol 25 mg tablet 25 mg PO BID RF: 0 rivaroxaban 20 mg tablet 20 mg PO HS RF: 0 Changed digoxin [Digox] 125 mcg (0.125 mg) tablet 125 mcg PO Q2D Qty: 90 RF: 3 Discharge Orders: Discharge Order (Routine); Ordered 06/29/20 Ordered By: Sydni Booth Admission Data Admit Date/Time: 06/29/20 00:01 Attending Provider: Sydni Booth Admit Provider: Kathrine Heath Primary Care Provider: Ricky Juarez Other Providers: Ivana Velasquez Charles C. Other Interventions: Discharge Summary Assessment (RN) Last Done: 06/29/20 15:32 Coding Level of Care Code 26294 OBS Care - Discharge Diagnoses ICD (implantable cardioverter-defibrillator) discharge Z45.02 Nonischemic cardiomyopathy I42.8 ICD (implantable cardioverter-defibrillator), biventricular, in situ Z95.810 Hypothyroidism E03.2 Hypothyroidism type: due to medication Anticoagulant long-term use Z79.01 Atrial fibrillation I48.21 Atrial fibrillation type: permanent Syncope and collapse R55 CKD (chronic kidney disease) stage 3, GFR 30-59 ml/min N18.30 Ventricular fibrillation I49.01 Chronic systolic (congestive) heart failure I50.22 Insomnia G47.00 Peripheral neuropathy G62.9 Paroxysmal ventricular tachycardia I47.2
[2020-06-30] MEDS ORDERED: hydroCHLOROthiazide 25 MG TAB PO SCH (09:00)
[2020-06-30] MEDS ORDERED: DIGOXIN 0.125 MG TAB PO SCH (16:00)
== END 2020-06-29 17:10 | disposition home or self-care (01) ==
LOC: ED 21:13 → 2S 06-29 00:01 → INTOOBSV 06-29 00:01 → SUATTDRO 06-29 00:01 → 2S 06-29 00:25

== ENCOUNTER 2020-12-18 17:44 | Observation (INO) ==
--- NOTE | 2020-12-18 18:10 | Emergency Department Note ---
History of Present Illness General Chief Complaint: Abdominal Pain Stated Complaint: ABD PAIN;BLOATING;TROUBLE BREATHING Time Seen by Provider: 12/18/20 18:08 History of Present Illness Maximum Pain Intensity: 2 Home Medications Medication Instructions Recorded Confirmed Type clonazepam 1 mg tablet (Klonopin) 1.5 mg PO HS 03/07/18 12/05/20 History torsemide 20 mg tablet 20 mg PO BID PRN 03/07/18 12/05/20 History multivitamin 1 tab PO QAM tab 01/08/19 12/05/20 History zolpidem 10 mg tablet (Ambien) 10 mg PO HS 05/07/19 12/05/20 History rivaroxaban 20 mg tablet 20 mg PO HS 04/09/20 12/05/20 History levothyroxine 112 mcg tablet 112 mcg PO DAILY #30 tab 07/13/20 12/05/20 Rx amiodarone 200 mg tablet 200 mg PO BID #180 tab 11/16/20 12/05/20 Rx carvedilol 25 mg tablet 12.5 mg PO BID tab 11/16/20 12/05/20 History cholecalciferol (vitamin D3) 25 50 mcg PO DAILY cap 11/16/20 12/05/20 History mcg (1,000 unit) capsule gabapentin 100 mg capsule 600 mg PO DAILY cap 11/16/20 12/05/20 History eplerenone 25 mg tablet 25 mg PO DAILY tab 12/05/20 12/05/20 History sacubitril 49 mg-valsartan 51 mg 1 tab PO BID 12/05/20 12/05/20 History tablet (Entresto) Allergies Allergy/AdvReac Type Severity Reaction Status Date / Time No Known Allergies Allergy Verified 12/05/20 15:16 Past Med/Surg History Medical History (Updated 06/29/20 @ 23:04 by Sydni Booth MD) Anxiety Atrial fibrillation since 17 yrs old; on xarelto follows with Dr. Morton CKD (chronic kidney disease) stage 3, GFR 30-59 ml/min Diverticulosis Elevated prolactin level Former smoker Hypothyroidism ICD (implantable cardioverter-defibrillator) in place 2013 @ [facility]--[facility] Kidney stones Marijuana use On amiodarone therapy On anticoagulant therapy xarelto Pituitary abnormality Thyroid nodule Surgical History (Updated 08/03/20 @ 16:10 by Rory Nagel PA-C) History of appendectomy History of cardiac cath 1977--no stent History of colonoscopy History of tonsillectomy History of tooth extraction wisdom teeth S/P appendectomy Family History Family/Other Family hx of colon cancer maternal uncle Brother A-fib Cardiomyopathy Sudden cardiac arrest Father Sudden Grandfather (Paternal) No problems noted. Mother Cancer Social History Smoking Status: Former smoker Tobacco Type: Cigarettes Second Hand Exposure: No; Hx Alcohol Use: Yes Alcohol type: beer, wine and hard liquor Hx Substance Use: No Preferred Language: [place] Communication Ability: Effective Building Principal Required: No Beliefs That Will Affect Care: None Current Living Situation: Spouse Feels Safe at Home: Yes Assistive Devices: Contacts Physical Exam Vital Signs: Vital Signs - 24 hr 12/18/20 17:46 Temperature 36.8 C Temperature Source Temporal Artery Sc an Pulse Rate 90 Respiratory Rate 18 Blood Pressure 110/68 Blood Pressure Jennifer n 82 Blood Pressure Pos ition Sitting Pulse Oximetry 98 Oxygen Delivery Me thod Room Air Sepsis Recent Feve r Within 48 Hours No Sepsis New/Unexpla ined Change in Men ko Status N/A Sepsis Action Take n by Nursing No Action Required Discharge Plan Visit Data Chief Complaint: Abdominal Pain Stated Complaint: ABD PAIN;BLOATING;TROUBLE BREATHING ED Provider: Reed Medrano Forms Stand Alone Forms: [facility] [employer] Prescriptions Prescriptions: No Action levothyroxine 112 mcg tablet 112 mcg PO DAILY Qty: 30 RF: 5 gabapentin 100 mg capsule 600 mg PO DAILY RF: 0 Entresto 49-51 mg tablet 1 tab PO BID RF: 0 eplerenone 25 mg tablet 25 mg PO DAILY RF: 0 carvedilol 25 mg tablet 12.5 mg PO BID RF: 0 cholecalciferol (vitamin D3) 25 mcg (1,000 unit) capsule 50 mcg PO DAILY RF: 0 amiodarone 200 mg tablet 200 mg PO BID Qty: 180 RF: 3 torsemide 20 mg Tablet 20 mg PO BID PRN (Reason: Edema) RF: 0 clonazepam [Klonopin] 1 mg Tablet 1.5 mg PO HS RF: 0 multivitamin tablet 1 tab PO QAM RF: 0 zolpidem [Ambien] 10 mg tablet 10 mg PO HS RF: 0 rivaroxaban 20 mg tablet 20 mg PO HS RF: 0 Referrals Referrals: Ricky Juarez MD [Primary Care Provider] -
[2020-12-18 18:26] LABS: Basophils # (auto) 0.03 K/uL (0-0.2); Basophils % (auto) 0.4 %; Eosinophils # (auto) 0.12 K/uL (0-0.5); Eosinophils % (auto) 1.7 %; Hemoglobin 13.4 g/dL (14.0-18.0); Immature Granulocytes # (auto) 0.02 K/uL (0.00-0.02); Immature Granulocytes % (auto) 0.3 %; Lymphocytes # (auto) 1.04 K/uL (1.2-3.4); Lymphocytes % (auto) 14.8 %; Mean Corpuscular Hemoglobin 33.3 pg (25-34); Mean Corpuscular Hgb Conc 33.5 g/dL (32-36); Mean Corpuscular Volume 99.3 fL (80-100); Mean Platelet Volume 10.4 fL (7.4-10.4); Monocytes # (auto) 0.57 K/uL (0.11-0.59); Monocytes % (auto) 8.1 %; Neutrophils # (auto) 5.23 K/uL (1.4-6.5); Neutrophils % (auto) 74.7 %; Platelet Count 245 K/uL (130-400); RDW Standard Deviation 50.3 fL (36.4-46.3); Red Blood Count 4.03 M/uL (4.7-6.1); White Blood Count 7.01 K/uL (4.8-10.8)
[2020-12-18 18:38] LABS: INR 1.5 (0.9-1.1); Partial Thromboplastin Ratio 1.6; Partial Thromboplastin Time 42.1 Seconds (21.0-31.0)
[2020-12-18 18:45] LABS: Alanine Aminotransferase 23 U/L (12-78); Albumin Level 3.7 gm/dl (3.4-5.0); Aspartate Aminotransferase 14 U/L (15-37); BUN Creatinine Ratio 16.1 (10-20); Blood Urea Nitrogen 36 mg/dl (7-18); Calcium 8.9 mg/dl (8.5-10.1); Carbon Dioxide 25 mmol/L (21-32); Chloride 108 mmol/L (98-107); Creatinine Clr Calc Pharmacy 50.1 ml/min; Est GFR (African American) 35.7 ml/min; Est GFR (Non-African American) 30.8 ml/min; Glucose 85 mg/dl (70-99); Lipase 127 U/L (73-393); Magnesium 2.2 mg/dl (1.8-2.4); Potassium 4.4 mmol/L (3.5-5.1); Sodium 140 mmol/L (136-145)
[2020-12-18 18:50] LABS: Alkaline Phosphatase 79 U/L (45-117); Bilirubin,Total 0.5 mg/dl (0.2-1); Globulin 3.8 gm/dl (2.5-4.0); NT Pro B Type Natriuretic Pept 3602 pg/ml (0-900); Phosphorus 3.7 mg/dl (2.5-4.9); Total Protein 7.5 gm/dl (6.4-8.2); Troponin I < 0.015 ng/ml (0-0.045)
--- NOTE | 2020-12-18 19:00 | Emergency Department Note ---
History of Present Illness General Chief Complaint: Abdominal Pain Stated Complaint: ABD PAIN;BLOATING;TROUBLE BREATHING Time Seen by Provider: 12/18/20 18:08 Source: patient Mode of arrival: ambulatory Limitations: no limitations History of Present Illness Provider Complaint: shortness of breath Onset (ago): day(s) Severity: moderate Consistency/Duration: + intermittent Maximum Pain Intensity: 2 Relieved By: + rest Exacerbated By: + lying flat and + exertion; not by coughing Context: + recent illness (Pneumonia and renal failure along with ventricular ab lation) Known history of: congestive heart failure Associated symptoms: + orthopnea; no chest pain, no pain with inspiration, no cough, no wheezing, no sputum production, no lower extremity pain, no paresthesias, no palpitations or no diaphoresis Treatment prior to arrival: diuretics (Did use a diuretic yesterday which seemed to improve his symptoms.) Related Data Home oxygen amount: none Home Medications Medication Instructions Recorded Confirmed Type clonazepam 1 mg tablet (Klonopin) 1.5 mg PO HS 03/07/18 12/18/20 History torsemide 20 mg tablet 20 mg PO BID PRN 03/07/18 12/18/20 History multivitamin 1 tab PO BID tab 01/08/19 12/18/20 History zolpidem 10 mg tablet (Ambien) 10 mg PO HS 05/07/19 12/18/20 History rivaroxaban 20 mg tablet 20 mg PO HS 04/09/20 12/18/20 History amiodarone 200 mg tablet 200 mg PO BID #180 tab 11/16/20 12/18/20 Rx carvedilol 25 mg tablet 12.5 mg PO BID tab 11/16/20 12/18/20 History cholecalciferol (vitamin D3) 25 50 mcg PO DAILY cap 11/16/20 12/18/20 History mcg (1,000 unit) capsule gabapentin 100 mg capsule See Rx Instructions .ROUTE 11/16/20 12/18/20 History .COMPLEX cap eplerenone 25 mg tablet 25 mg PO QPM tab 12/05/20 12/18/20 History albuterol sulfate 90 mcg/actuation 1 puff INHALATION QID PRN 12/18/20 12/18/20 History aerosol inhaler fluticasone propionate 110 2 puff INHALATION BID 12/18/20 12/18/20 History mcg/actuation HFA aerosol inhaler (Flovent HFA) hydrocodone-homatropine 5 mg-1.5 5 ml PO TID 12/18/20 12/18/20 History mg/5 mL oral syrup levothyroxine 112 mcg tablet 112 mcg PO QAM 12/18/20 12/18/20 History sacubitril 97 mg-valsartan 103 mg 0.5 tab PO BID 12/18/20 12/18/20 History tablet (Entresto) Allergies Allergy/AdvReac Type Severity Reaction Status Date / Time No Known Allergies Allergy Verified 12/18/20 19:09 Past Med/Surg History Medical History Anxiety Atrial fibrillation since 17 yrs old; on xarelto follows with Dr. Morton CKD (chronic kidney disease) stage 3, GFR 30-59 ml/min Diverticulosis Elevated prolactin level Former smoker Hypothyroidism ICD (implantable cardioverter-defibrillator) in place 2013 @ [facility]--[facility] Kidney stones Marijuana use On amiodarone therapy On anticoagulant therapy xarelto Pituitary abnormality Thyroid nodule Surgical History History of appendectomy History of cardiac cath 1977--no stent History of colonoscopy History of tonsillectomy History of tooth extraction wisdom teeth S/P appendectomy Family History Family/Other Family hx of colon cancer maternal uncle Brother A-fib Cardiomyopathy Sudden cardiac arrest Father Sudden Grandfather (Paternal) No problems noted. Mother Cancer Social History Smoking Status: Former smoker Tobacco Type: Cigarettes Second Hand Exposure: No; Hx Alcohol Use: Yes Alcohol type: beer, wine and hard liquor Hx Substance Use: No Preferred Language: Syriac Communication Ability: Effective Natural Resources Instructor Required: No Beliefs That Will Affect Care: None Current Living Situation: Spouse Feels Safe at Home: Yes Assistive Devices: Contacts Physical Exam Vital Signs: Vital Signs - 24 hr 12/18/20 17:46 12/18/20 18:47 12/18/20 20:00 Temperature 36.8 C Temperature Source Temporal Artery Sc an Pulse Rate 90 Pulse Rate [Left F walter] 75 71 Respiratory Rate 18 25 H 20 Respiratory Effort / Characteristics Non-Labored Sponta neous Respiratory Depth Normal Blood Pressure 110/68 Blood Pressure [Ri ght Arm] 92/63 L 107/71 Blood Pressure Jennifer n 82 Blood Pressure Jennifer n [Right Arm] 72 83 Blood Pressure Pos ition Sitting Blood Pressure Pos ition [Right Arm] Sitting Pulse Oximetry 98 97 96 Oxygen Delivery Me thod Room Air Room Air Sepsis Recent Feve r Within 48 Hours No Sepsis New/Unexpla ined Change in Men ko Status N/A Sepsis Action Take n by Nursing No Action Required Physical Exam: GENERAL: Wearing a mask. NAD, non-toxic. EYE EXAM: Normal conjunctiva. PERRL, no anisocoria and EOM's grossly intact w/o pain. NECK: Supple, no nuchal rigidity, no adenopathy, non-tender. No signs of meningismus. Chest: Device in left chest. LUNGS: Diffuse crackles throughout. More prominent at the bases. HEART: NSR, no MRG. ABDOMEN: Abdomen soft, non-tender, normo-active bowel sounds, no masses, no rebound or guarding. BACK: No CVA TTP. SKIN: No rashes and no bruising. UPPER EXTREMITIES: Upper extremities are grossly normal. LOWER EXTREMITIES: Grossly normal, trace symmetric bilateral pretibial edema. NEURO EXAM: A&O x3, cranial nerves II-XII grossly intact, normal speech, moves all 4 extremities on command w/o issue. Course Course Cardiac monitoring: An order was placed for continuous cardiac monitoring. The monitor shows a rate of 75 with sinus rhythm. Administered Medications Discontinued Medications Furosemide (Furosemide 40 Mg/4 Ml Vial) 40 mg IV NOW STA Stop: 12/18/20 19:33 Last Admin: 12/18/20 19:50 Dose: 40 mg Documented by: [id number] Medical Decision Making Differential Diagnosis Reactive airway disease, pneumonia, pneumothorax, COPD, CHF, infections, cardiac ischemia, pulmonary embolism, musculoskeletal, gastrointestinal, as well as other pathologies. Medical Records Attestation: I reviewed the patient's medical records. Home Medications Current Medication List: was personally reviewed by me Laboratory Data Attestation: I reviewed the patient's lab results. Result diagrams: 12/18/20 18:14 12/18/20 18:14 Lab Results 12/18/20 12/18/20 12/18/20 Range/Units 18:14 18:14 18:14 WBC 7.01 (4.8-10.8) K/uL RBC 4.03 L (4.7-6.1) M/uL Hgb 13.4 L (14.0-18.0) g/dL Hct 40.0 L (42-52) % MCV 99.3 (80-100) fL MCH 33.3 (25-34) pg MCHC 33.5 (32-36) g/dL RDW Std Deviation 50.3 H (36.4-46.3) fL RDW Coeff of Mikaela 14.0 (11.5-14.5) % Plt Count 245 (130-400) K/uL MPV 10.4 (7.4-10.4) fL Immature Gran % (Auto) 0.3 % Neut % (Auto) 74.7 % Lymph % (Auto) 14.8 % [place] % (Auto) 8.1 % Eos % (Auto) 1.7 % Baso % (Auto) 0.4 % Neut # (Auto) 5.23 (1.4-6.5) K/uL Lymph # (Auto) 1.04 L (1.2-3.4) K/uL [place] # (Auto) 0.57 (0.11-0.59) K/uL Eos # (Auto) 0.12 (0-0.5) K/uL Baso # (Auto) 0.03 (0-0.2) K/uL Immature Gran # (Auto) 0.02 (0.00-0.02) K/uL PT 15.0 H (9.0-12.0) Seconds INR 1.5 H (0.9-1.1) APTT 42.1 H (21.0-31.0) Seconds PTT Ratio 1.6 Sodium 140 (136-145) mmol/L Potassium 4.4 (3.5-5.1) mmol/L Chloride 108 H (98-107) mmol/L Carbon Dioxide 25 (21-32) mmol/L Anion Gap 8.0 (3-11) BUN 36 H (7-18) mg/dl Creatinine 2.21 H (0.6-1.4) mg/dl Est Cr Clr Drug Dosing 50.1 ml/min Est GFR ( Amer) 35.7 ml/min Est GFR (Non-Af Amer) 30.8 ml/min BUN/Creatinine Ratio 16.1 (10-20) Glucose 85 (70-99) mg/dl Calcium 8.9 (8.5-10.1) mg/dl Phosphorus 3.7 (2.5-4.9) mg/dl Magnesium 2.2 (1.8-2.4) mg/dl Total Bilirubin 0.5 (0.2-1) mg/dl AST 14 L (15-37) U/L ALT 23 (12-78) U/L Alkaline Phosphatase 79 (45-117) U/L Troponin I < 0.015 (0-0.045) ng/ml NT-Pro-B Natriuret Pep 3602 H (0-900) pg/ml Total Protein 7.5 (6.4-8.2) gm/dl Albumin 3.7 (3.4-5.0) gm/dl Globulin 3.8 (2.5-4.0) gm/dl Albumin/Globulin Ratio 1.0 (0.9-2) Lipase 127 (73-393) U/L COVID-19 Eval Order SARS-CoV-2 (PCR) (Negative) 12/18/20 12/18/20 Range/Units 18:55 18:55 WBC (4.8-10.8) K/uL RBC (4.7-6.1) M/uL Hgb (14.0-18.0) g/dL Hct (42-52) % MCV (80-100) fL MCH (25-34) pg MCHC (32-36) g/dL RDW Std Deviation (36.4-46.3) fL RDW Coeff of Mikaela (11.5-14.5) % Plt Count (130-400) K/uL MPV (7.4-10.4) fL Immature Gran % (Auto) % Neut % (Auto) % Lymph % (Auto) % [place] % (Auto) % Eos % (Auto) % Baso % (Auto) % Neut # (Auto) (1.4-6.5) K/uL Lymph # (Auto) (1.2-3.4) K/uL [place] # (Auto) (0.11-0.59) K/uL Eos # (Auto) (0-0.5) K/uL Baso # (Auto) (0-0.2) K/uL Immature Gran # (Auto) (0.00-0.02) K/uL PT (9.0-12.0) Seconds INR (0.9-1.1) APTT (21.0-31.0) Seconds PTT Ratio Sodium (136-145) mmol/L Potassium (3.5-5.1) mmol/L Chloride (98-107) mmol/L Carbon Dioxide (21-32) mmol/L Anion Gap (3-11) BUN (7-18) mg/dl Creatinine (0.6-1.4) mg/dl Est Cr Clr Drug Dosing ml/min Est GFR ( Amer) ml/min Est GFR (Non-Af Amer) ml/min BUN/Creatinine Ratio (10-20) Glucose (70-99) mg/dl Calcium (8.5-10.1) mg/dl Phosphorus (2.5-4.9) mg/dl Magnesium (1.8-2.4) mg/dl Total Bilirubin (0.2-1) mg/dl AST (15-37) U/L ALT (12-78) U/L Alkaline Phosphatase (45-117) U/L Troponin I (0-0.045) ng/ml NT-Pro-B Natriuret Pep (0-900) pg/ml Total Protein (6.4-8.2) gm/dl Albumin (3.4-5.0) gm/dl Globulin (2.5-4.0) gm/dl Albumin/Globulin Ratio (0.9-2) Lipase (73-393) U/L COVID-19 Eval Order Covid19 at [facility] SARS-CoV-2 (PCR) NEGATIVE (Negative) Imaging Data Radiologist's Impression: Chest X-Ray 12/18/20 18:21 XR chest 1V portable HISTORY: 60 years-old Male Chest Pain acute atypical chest pain COMPARISON: Chest radiograph 6 11/24/2020 TECHNIQUE: Portable AP view of the chest FINDINGS: Cardiomegaly. Pulmonary vascular congestion. Left subclavian pacer/AICD. Chronic interstitial coarsening. No pneumothorax, large pleural effusion or lobar airspace consolidation. Degenerative changes of the shoulders and spine. IMPRESSION: Cardiomegaly with pulmonary vascular congestion and possible pul monary edema. ACT 112: Negative or not required by law. The above report was generated using voice recognition software. It may contain grammatical, syntax or spelling errors. Electronically signed by: Marcio Dejesus M.D. 12/18/2020 7:11 PM ECG Data Interpretation: Circular paced rhythm, rate of 71, wide QRS, left bundle branch block pattern. No obvious sgarbossa criteria. Q waves throughout. MDM Narrative Patient was seen due to concern for increasing shortness of breath. The patient did describe orthopnea and TERAN especially going upstairs. Patient does have a known history of V. fib, ventricular ablation, AICD placement. The patient is on amiodarone and eplerenone has been taking torsemide only as needed which did seem to improve his symptoms yesterday. Patient denies any chest pains but has had the shortness of breath and was curious as to whether not the patient may be developing some ascites as he has noted fullness in the abdomen but denies any abdominal pain nausea or vomiting. The patient denies any upper respiratory type symptoms. Patient did have blood work completed and I did interrogate the patient's AICD. EKG with a ventricular paced rhythm. No obvious sgarbossa criteria. Patient has normal white count and normal hemoglobin. Patient does have acute on chronic kidney dysfunction with a creatinine 2.2. BNP is elevated. Chest x-ray does show concern for vascular congestion which would be consistent with the patient's exam of crackles in the lungs. The patient was ordered 40 of Lasix. I did speak with the [employer] who stated that the patient had had an antitachycardia pacing episode that had occurred for ventricular tachycardia which occurred for approximately 10 to 15 seconds today. The patient had also had an episode back on December 13. I did speak with the on- call hospitalist Dr. Arevalo and the patient was admitted to the medicine service. I did speak with the on-call gaming cage worker Dr. Jeff who agreed with the diuretics but would not change any other medications until just seeing how he responds overnight. Impression & Plan V tach, CHF (congestive heart failure) Discharge Plan Visit Data Chief Complaint: Abdominal Pain Stated Complaint: ABD PAIN;BLOATING;TROUBLE BREATHING ED Provider: Reed Medrano Discharge Problem: V tach, CHF (congestive heart failure) Patient Disposition: Admitted As Inpatient Forms Stand Alone Forms: [facility] [employer] Prescriptions Prescriptions: No Action gabapentin 100 mg capsule See Rx Instructions .ROUTE .COMPLEX RF: 0 eplerenone 25 mg tablet 25 mg PO QPM RF: 0 carvedilol 25 mg tablet 12.5 mg PO BID RF: 0 cholecalciferol (vitamin D3) 25 mcg (1,000 unit) capsule 50 mcg PO DAILY RF: 0 amiodarone 200 mg tablet 200 mg PO BID Qty: 180 RF: 3 torsemide 20 mg Tablet 20 mg PO BID PRN (Reason: Edema) RF: 0 clonazepam [Klonopin] 1 mg Tablet 1.5 mg PO HS RF: 0 multivitamin tablet 1 tab PO BID RF: 0 zolpidem [Ambien] 10 mg tablet 10 mg PO HS RF: 0 rivaroxaban 20 mg tablet 20 mg PO HS RF: 0 hydrocodone-homatropine 5-1.5 mg/5 mL syrup 5 ml PO TID RF: 0 albuterol sulfate 90 mcg/actuation HFA aerosol inhaler 1 puff INHALATION QID PRN (Reason: Wheezing) RF: 0 Flovent HFA 110 mcg/actuation HFA aerosol inhaler 2 puff INHALATION BID RF: 0 Entresto 97-103 mg tablet 0.5 tab PO BID RF: 0 levothyroxine 112 mcg tablet 112 mcg PO QAM RF: 0 Referrals Referrals: Ricky Juarez MD [Primary Care Provider] -
--- NOTE | 2020-12-18 19:13 | XRay Report ---
XR chest 1V portable HISTORY: 60 years-old Male Chest Pain acute atypical chest pain COMPARISON: Chest radiograph 6 11/24/2020 TECHNIQUE: Portable AP view of the chest FINDINGS: Cardiomegaly. Pulmonary vascular congestion. Left subclavian pacer/AICD. Chronic interstitial coarsen ing. No pneumothorax, large pleural effusion or lobar airspace consolidation. Degenerative changes of the shoulders and spine. IMPRESSION: Cardiomegaly with pulmonary vascular congestion and possible pulmonary edema. ACT 112: Negative or not required by law. The above report was generated using voice recognition software. It may contain grammatical, syntax o r spelling errors. Electronically signed by: Marcio Dejesus M.D. 12/18/2020 7:11 PM
[2020-12-18] MEDS ORDERED: FUROSEMIDE 40 MG/4 ML VIAL IV STA (19:32)
--- NOTE | 2020-12-18 20:00 | History & Physical Report ---
Date of Service December 18, 2020 Assessment & Plan (1) CHF (congestive heart failure): Plan: Ty is a 60-year-old male with a past medical history of CHF with paroxysmal ventricular tachycardia status post ablation with ICD biventricular placement on amiodarone therapy, CKD stage III, A. fib, benign essential tremor, hypothyroidism, and nonischemic cardiomyopathy who presents with progressive shortness of breath, weakness, and orthopnea over the last week. Shortness of breath/orthopnea 2/2 AoC HFrEF EF ~20% - AICD placement 11/07. ECHO at that time showed RA dilation, globally hypokinetic LV - Cardiomegaly with pulmonary vascular congestion and possible pulmonary edema. - Recent dietary indiscretion including barbecue and baked beans suspicious for salt overload, underlying arrhythmia also likely contributory to form forward flow - Baseline dry weight approximately 115 kg, admitting weight 118.6 kg. - No leukocytosis. NT proBNP elevated on prior approximate [id number] on admission. - CXR reviewed, shows cardiomegaly with pulmonary vascular congestion and possible pulmonary edema. - Creatinine baseline approximately 1.51.8, acutely elevated to 2.21 on admission. - Troponin negative. - EKG independently reviewed, shows ventricular paced rhythm. Patient with AICD which was interrogated, showed a 10 to 15 seconds run of V. fib which was shocked back into a ventricular paced rhythm and episodes of a atrial tachycardia arrhythmia. - Case with discussed with Dr. Jeff Cardiology by ER provider. Per cardiology recommended trial of diuresis without modification of antiarrythmics overnight and cardiology consultation in AM. - Continue entresto 0.5mg PO BID, continue coreg 12.5mg PO BID, continue amiodarone 200mg PO BID - Repeat TTE pending - Daily weights (2) Atrial fibrillation: Plan: - Continue coreg as above - Adequate rate control at time of assessment - Continue rivaroxaban (3) V tach: Plan: - Nonsustained, Return to normal paced rhythm following AICD shock - Cardiology consulted, discussed as above. - Continue carvedilol 12.5mg PO BID. This was decreased from 25mg PO BID in October 19 hypotension. (4) CKD (chronic kidney disease) stage 3, GFR 30-59 ml/min: Plan: - baseline ~1.8-1.9 - Cr 2.2 on admission, suspect prerenal 2/2 poor forward flow - Torsemide for fluid overload as above - BMP daily (5) Hypothyroidism: Plan: - tsh wnl - continue home synthroid (6) On amiodarone therapy: Plan: - continue as above (7) Insomnia: Plan: - Zolpidem 10mg qHS dose reduced to 5mg qHS PRN (8) DVT prophylaxis: Plan: DVT PPx: On Rivaroxaban Diet: 2g sodium restriction Dispo: PCU Code Status: Full Code (9) Presence of biventricular AICD: History of Present Illness Primary Care Provider: Ricky Juarez MD Ty is a 60-year-old male with a past medical history of CHF with paroxysmal tachycardia status post ablation with ICD biventricular placement on amiodarone therapy, CKD stage III, A. fib, benign essential tremor, hypothyroidism, and nonischemic cardiomyopathy who presents with progressive shortness of breath, weakness, and orthopnea over the last week. Ty reports he had a ablation for ventricular arrhythmia in October 2020. Ablation was performed at [facility] in [place]. Hospital course was complicated by pneumonia and acute kidney failure requiring a 9-day stay following which he was discharged to outpatient follow-up. Reports since October he is felt increasingly poor gradually, but suddenly felt much worse in the last 7 days. Reports he had quickly increasing shortness of breath and difficulty breathing laying flat for which he took torsemide 20 mg yesterday. He reports he also had an episode of weakness/passing out for couple of seconds 5 days ago during which he did not hit his head. Denies palpitations, but endorses a feeling of being bloated in the past week. Denies chest pain at time of assessment. He notes he has had some jolts from his pacer last couple of days. Of note on interrogation of his pacer per ER provider had a 15-second run of ventricular tachycardia today, and intermittent atrial tachyarrhythmias in the past week. His carvedilol was decreased by 50% in October. Was previously on digoxin prior to his ablation, reports this was stopped in October. Denies other medication changes in the last several weeks. PCP is Dr. Juarez, sees Dr. Morton with cardiology who he saw approximately a week ago and was "doing okay "at that time.Patient reports he has had a couple of pounds of weight gain, and that his dry weight is around 250 pounds. He reports in the last week he has had some increase salty food including burgers, clems barbecue, and baked beans. Medical History: Reviewed Medications: Reviewed Surgical History: Reviewed Allergies: Reviewed Social History: Denies tobacco, alcohol, rec drug use. Lives at home with family, has a flight of stairs in the home. Code Status: Full Code, discussed with pt Allergies Allergy/AdvReac Type Severity Reaction Status Date / Time No Known Allergies Allergy Verified 12/18/20 19:09 Home Medications Medication Instructions Recorded Confirmed Type clonazepam 1 mg tablet (Klonopin) 1.5 mg PO HS 03/07/18 12/18/20 History torsemide 20 mg tablet 20 mg PO BID PRN 03/07/18 12/18/20 History multivitamin 1 tab PO BID tab 01/08/19 12/18/20 History zolpidem 10 mg tablet (Ambien) 10 mg PO HS 05/07/19 12/18/20 History rivaroxaban 20 mg tablet 20 mg PO HS 04/09/20 12/18/20 History amiodarone 200 mg tablet 200 mg PO BID #180 tab 11/16/20 12/18/20 Rx carvedilol 25 mg tablet 12.5 mg PO BID tab 11/16/20 12/18/20 History cholecalciferol (vitamin D3) 25 50 mcg PO DAILY cap 11/16/20 12/18/20 History mcg (1,000 unit) capsule gabapentin 100 mg capsule See Rx Instructions .ROUTE 11/16/20 12/18/20 History .COMPLEX cap eplerenone 25 mg tablet 25 mg PO QPM tab 12/05/20 12/18/20 History albuterol sulfate 90 mcg/actuation 1 puff INHALATION QID PRN 12/18/20 12/18/20 History aerosol inhaler fluticasone propionate 110 2 puff INHALATION BID 12/18/20 12/18/20 History mcg/actuation HFA aerosol inhaler (Flovent HFA) hydrocodone-homatropine 5 mg-1.5 5 ml PO TID 12/18/20 12/18/20 History mg/5 mL oral syrup levothyroxine 112 mcg tablet 112 mcg PO QAM 12/18/20 12/18/20 History sacubitril 97 mg-valsartan 103 mg 0.5 tab PO BID 12/18/20 12/18/20 History tablet (Entresto) Past Med/Surg History Medical History Anxiety Atrial fibrillation since 17 yrs old; on xarelto follows with Dr. Morton CKD (chronic kidney disease) stage 3, GFR 30-59 ml/min Diverticulosis Elevated prolactin level Former smoker Hypothyroidism ICD (implantable cardioverter-defibrillator) in place 2013 @ [facility]--[facility] Kidney stones Marijuana use On amiodarone therapy On anticoagulant therapy xarelto Pituitary abnormality Thyroid nodule Surgical History History of appendectomy History of cardiac cath 1977--no stent History of colonoscopy History of tonsillectomy History of tooth extraction wisdom teeth S/P appendectomy Family History Family/Other Family hx of colon cancer maternal uncle Brother A-fib Cardiomyopathy Sudden cardiac arrest Father Sudden Grandfather (Paternal) No problems noted. 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 Patient reports is not sure about extremity swelling, endorses some "jolts "in his chest, no palpitations at time of assessment. Respiratory: See HPI Gastrointestinal: Denies nausea, vomiting, constipation, diarrhea. Endorses abdominal bloating. Genitourinary: Denies dysuria, urinary frequency Musculoskeletal: Denies acute focal weakness, focal muscle aches/pain, joint aches/pain Integumentary:Denies acute rash, lesions, bruising Neurological: Denies headache, numbness, tingling, focal weakness Physical Exam Physical Exam: General: A&Ox3. NAD. Cooperative. HEENT: Atraumatic, normocephalic. Pulm: CTAB A&P. -wheezes, -rales, -rhonchi. Symmetrical chest rise. No increase work of breathing. No respiratory distress. Cardiac: Regular, no murmur appreciated. Radial pulses intact and symmetrical. JVD is appreciated approximately 2 cm above the clavicle with positive HJR. Abdominal: Softly distended, trace tenderness to deep palpation on left lower quadrant, no rebound tenderness, no guarding.. BS present. Extremities: Trace pretibial edema bilaterally. 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 Sensation to soft touch intact bilaterally without asymmetry. Results & Data Results & Data ([facility]) Vital Signs (Past 12 Hours) Vital Signs Temp Pulse Pulse Resp BP BP Pulse Ox 12/18/20 18:47 75 25 H 92/63 L 97 12/18/20 17:46 36.8 C 90 18 110/68 98 Laboratory Results Abnormal lab results 12/18/20 12/18/20 12/18/20 Range/Units 18:14 18:14 18:14 RBC 4.03 L (4.7-6.1) M/uL Hgb 13.4 L (14.0-18.0) g/dL Hct 40.0 L (42-52) % RDW Std Deviation 50.3 H (36.4-46.3) fL Lymph # (Auto) 1.04 L (1.2-3.4) K/uL PT 15.0 H (9.0-12.0) Seconds INR 1.5 H (0.9-1.1) APTT 42.1 H (21.0-31.0) Seconds Chloride 108 H (98-107) mmol/L BUN 36 H (7-18) mg/dl Creatinine 2.21 H (0.6-1.4) mg/dl AST 14 L (15-37) U/L NT-Pro-B Natriuret Pep 3602 H (0-900) pg/ml Urine Ketones (Negative) 12/18/20 Range/Units 19:54 RBC (4.7-6.1) M/uL Hgb (14.0-18.0) g/dL Hct (42-52) % RDW Std Deviation (36.4-46.3) fL Lymph # (Auto) (1.2-3.4) K/uL PT (9.0-12.0) Seconds INR (0.9-1.1) APTT (21.0-31.0) Seconds Chloride (98-107) mmol/L BUN (7-18) mg/dl Creatinine (0.6-1.4) mg/dl AST (15-37) U/L NT-Pro-B Natriuret Pep (0-900) pg/ml Urine Ketones Trace H (Negative) Diagnostic Findings Chest X-Ray 12/18/20 18:21 XR chest 1V portable HISTORY: 60 years-old Male Chest Pain acute atypical chest pain COMPARISON: Chest radiograph 6 11/24/2020 TECHNIQUE: Portable AP view of the chest FINDINGS: Cardiomegaly. Pulmonary vascular congestion. Left subclavian pacer/AICD. Chronic interstitial coarsening. No pneumothorax, large pleural effusion or lobar airspace consolidation. Degenerative changes of the shoulders and spine. IMPRESSION: Cardiomegaly with pulmonary vascular congestion and possible pulmonary edema. ACT 112: Negative or not required by law. The above report was generated using voice recognition software. It may contain grammatical, syntax or spelling errors. Electronically signed by: Marcio Dejesus M.D. 12/18/2020 7:11 PM Medications Administered Home Medications clonazepam 1 mg tablet (Klonopin) 1.5 mg PO HS 03/07/18 [History Confirmed 12/18/20] torsemide 20 mg tablet 20 mg PO BID PRN 03/07/18 [History Confirmed 12/18/20] multivitamin 1 tab PO BID tab 01/08/19 [History Confirmed 12/18/20] zolpidem 10 mg tablet (Ambien) 10 mg PO HS 05/07/19 [History Confirmed 12/18/20] rivaroxaban 20 mg tablet 20 mg PO HS 04/09/20 [History Confirmed 12/18/20] amiodarone 200 mg tablet 200 mg PO BID #180 tab 11/16/20 [Rx Confirmed 12/18/20] carvedilol 25 mg tablet 12.5 mg PO BID tab 11/16/20 [History Confirmed 12/18/20] cholecalciferol (vitamin D3) 25 mcg (1,000 unit) capsule 50 mcg PO DAILY cap 11/16/20 [History Confirmed 12/18/20] gabapentin 100 mg capsule See Rx Instructions .ROUTE .COMPLEX cap 11/16/20 [History Confirmed 12/18/20] eplerenone 25 mg tablet 25 mg PO QPM tab 12/05/20 [History Confirmed 12/18/20] albuterol sulfate 90 mcg/actuation aerosol inhaler 1 puff INHALATION QID PRN 12/18/20 [History Confirmed 12/18/20] fluticasone propionate 110 mcg/actuation HFA aerosol inhaler (Flovent HFA) 2 puff INHALATION BID 12/18/20 [History Confirmed 12/18/20] hydrocodone-homatropine 5 mg-1.5 mg/5 mL oral syrup 5 ml PO TID 12/18/20 [History Confirmed 12/18/20] levothyroxine 112 mcg tablet 112 mcg PO QAM 12/18/20 [History Confirmed 12/18/20] sacubitril 97 mg-valsartan 103 mg tablet (Entresto) 0.5 tab PO BID 12/18/20 [History Confirmed 12/18/20] Code Status & VTE Plan Code Status Full Code PG Care Time/CCT Total # of Minutes Spent Total Time Spent with Patient: Total time spent is greater than 50% in coordination of care (as documented) at patient's floor/unit and/or counseling patient: 50 min Coding Level of Care Code 50428 Initial Inpt Care Lvl 3 Diagnoses CHF (congestive heart failure) I50.9 Heart failure chronicity: acute on chronic Heart failure type: unspecified V tach I47.2 Presence of biventricular AICD Z95.810 CKD (chronic kidney disease) stage 3, GFR 30-59 ml/min N18.30 Hypothyroidism E03.2 Hypothyroidism type: due to medication On amiodarone therapy Z79.899 Insomnia G47.00 DVT prophylaxis Z29.9 Atrial fibrillation I48.21 Atrial fibrillation type: permanent (1) CHF (congestive heart failure) Heart failure chronicity: acute on chronic Heart failure type: unspecified Qualified Code(s): I50.9 - Heart failure, unspecified (2) Hypothyroidism Hypothyroidism type: due to medication Qualified Code(s): E03.2 - Hypothyroidism due to medicaments and other exogenous substances (3) Atrial fibrillation Atrial fibrillation type: permanent Qualified Code(s): I48.21 - Permanent atrial fibrillation
[2020-12-18 20:26] LABS: Appearance Urine Clear (Clear); Bilirubin Urine Negative (Negative); Blood Urine Negative (Negative); Color Urine Dark Yellow; Glucose Urine UA Negative (Negative); Ketones Urine Trace (Negative); Leukocyte Esterase Urine Negative (Negative); Nitrite Urine Negative (Negative); Protein Urine Negative (Negative); Specific Gravity Urine 1.023 (1.000-1.030); Urobilinogen Urine Negative (Negative)
[2020-12-18] MEDS ORDERED: RIVAROXABAN 20 MG TAB PO SCH (22:32)
[2020-12-18] MEDS ORDERED: ACETAMINOPHEN 325 MG TAB PO PRN (22:32)
[2020-12-18] MEDS ORDERED: clonazePAM 0.5 MG TAB PO SCH (22:32)
[2020-12-18] MEDS ORDERED: ZOLPIDEM TARTRATE 5 MG TAB PO PRN (22:32)
[2020-12-18] MEDS: AMIODARONE 200 MG TAB PO SCH (23:44)
[2020-12-18] MEDS: carvediloL 12.5 MG TAB PO SCH (23:44)
[2020-12-18] MEDS: SACUBITRIL-VALSARTAN 97-103 MG TAB PO SCH (23:45)
[2020-12-19] MEDS ORDERED: SIMETHICONE 80 MG CHEW PO ONE (01:00)
[2020-12-19] MEDS ORDERED: GABAPENTIN 400 MG CAP PO SCH (01:30)
[2020-12-19] MEDS ORDERED: LEVOTHYROXINE SODIUM 112 MCG TABLET PO SCH (06:30)
[2020-12-19 07:28] LABS: Basophils # (auto) 0.01 K/uL (0-0.2); Basophils % (auto) 0.1 %; Eosinophils # (auto) 0.09 K/uL (0-0.5); Eosinophils % (auto) 1.3 %; Hematocrit (blood only) 33.7 % (42-52); Hemoglobin 11.3 g/dL (14.0-18.0); Immature Granulocytes # (auto) 0.03 K/uL (0.00-0.02); Immature Granulocytes % (auto) 0.4 %; Lymphocytes # (auto) 0.66 K/uL (1.2-3.4); Lymphocytes % (auto) 9.8 %; Mean Corpuscular Hemoglobin 32.3 pg (25-34); Mean Corpuscular Hgb Conc 33.5 g/dL (32-36); Mean Corpuscular Volume 96.3 fL (80-100); Mean Platelet Volume 10.5 fL (7.4-10.4); Monocytes % (auto) 8.9 %; Neutrophils # (auto) 5.34 K/uL (1.4-6.5); Neutrophils % (auto) 79.5 %; Platelet Count 195 K/uL (130-400); RDW Standard Deviation 49.1 fL (36.4-46.3); White Blood Count 6.73 K/uL (4.8-10.8)
--- NOTE | 2020-12-19 07:50 | Electrocardiogram Report ---
Test Reason : Blood Pressure : / mmHG Vent. Rate : 071 BPM Atrial Rate : 076 BPM P-R Int : 000 ms QRS Dur : 192 ms QT Int : 570 ms P-R-T Axes : 000 -11 049 degrees QTc Int : 619 ms Ventricular-paced rhythm Abnormal ECG When compared with ECG of 29-JUN-2020 07:13, Vent. rate has decreased BY 4 BPM Confirmed by Andrew Jeff ([id number]) on 12/19/2020 7:50:37 AM Referred By: REFERRED SELF Confirmed By:Andrew Jeff
[2020-12-19 08:09] LABS: BUN Creatinine Ratio 19.4 (10-20); Bilirubin,Total 0.9 mg/dl (0.2-1); Calcium 8.7 mg/dl (8.5-10.1); Creatinine Clr Calc Pharmacy 62.8 ml/min; Est GFR (African American) 47.3 ml/min; Est GFR (Non-African American) 40.8 ml/min; Globulin 3.1 gm/dl (2.5-4.0); Potassium 3.5 mmol/L (3.5-5.1); Total Protein 6.1 gm/dl (6.4-8.2)
[2020-12-19] MEDS: AMIODARONE 200 MG TAB PO SCH (08:27)
[2020-12-19] MEDS: GABAPENTIN 100 MG CAP PO SCH ×2 (08:27→13:33)
[2020-12-19] MEDS: SACUBITRIL-VALSARTAN 97-103 MG TAB PO SCH (08:28)
--- NOTE | 2020-12-19 08:28 | Electrocardiogram Report ---
Test Reason : Blood Pressure : / mmHG Vent. Rate : 074 BPM Atrial Rate : 072 BPM P-R Int : 000 ms QRS Dur : 194 ms QT Int : 576 ms P-R-T Axes : 000 -64 060 degrees QTc Int : 639 ms Ventricular-paced rhythm Biventricular pacemaker detected Abnormal ECG When compared with ECG of 18-DEC-2020 18:10, Vent. rate has increased BY 3 BPM Confirmed by Andrew Jeff ([id number]) on 12/19/2020 8:28:02 AM Referred By: REFERRED SELF Confirmed By:Andrew Jeff
[2020-12-19] MEDS: carvediloL 12.5 MG TAB PO SCH (08:29)
[2020-12-19] MEDS ORDERED: GABAPENTIN 100 MG CAP PO SCH (09:00)
[2020-12-19] MEDS ORDERED: POTASSIUM CHLORIDE CRTAB 20 MEQ TABCR PO SCH (10:15)
[2020-12-19] MEDS ORDERED: FUROSEMIDE 40 MG in SYRINGE 0 ML IV SCH (10:30)
--- NOTE | 2020-12-19 11:18 | XCELERA ---
[id number]
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
--- NOTE | 2020-12-19 13:05 | Discharge Summary ---
Date of Service December 19, 2020 Admission HPI Per Admitting Provider Ty is a 60-year-old male with a past medical history of CHF with paroxysmal tachycardia status post ablation with ICD biventricular placement on amiodarone therapy, CKD stage III, A. fib, benign essential tremor, hypothyroidism, and nonischemic cardiomyopathy who presents with progressive shortness of breath, weakness, and orthopnea over the last week. Ty reports he had a ablation for ventricular arrhythmia in October 2020. Ablation was performed at [facility] in [place]. Hospital course was complicated by pneumonia and acute kidney failure requiring a 9-day stay following which he was discharged to outpatient follow-up. Reports since October he is felt increasingly poor gradually, but suddenly felt much worse in the last 7 days. Reports he had quickly increasing shortness of breath and difficulty breathing laying flat for which he took torsemide 20 mg yesterday. He reports he also had an episode of weakness/passing out for couple of seconds 5 days ago during which he did not hit his head. Denies palpitations, but endorses a feeling of being bloated in the past week. Denies chest pain at time of assessment. He notes he has had some jolts from his pacer last couple of days. Of note on interrogation of his pacer per ER provider had a 15-second run of ventricular tachycardia today, and intermittent atrial tachyarrhythmias in the past week. His carvedilol was decreased by 50% in October. Was previously on digoxin prior to his ablation, reports this was stopped in October. Denies other medication changes in the last several weeks. PCP is Dr. Juarez, sees Dr. Morton with cardiology who he saw approximately a week ago and was "doing okay "at that time.Patient reports he has had a couple of pounds of weight gain, and that his dry weight is around 250 pounds. He reports in the last week he has had some increase salty food including burgers, clems barbecue, and baked beans. Medical History: Reviewed Medications: Reviewed Surgical History: Reviewed Allergies: Reviewed Social History: Denies tobacco, alcohol, rec drug use. Lives at home with family, has a flight of stairs in the home. Code Status: Full Code, discussed with pt Principal Diagnosis Acute on chronic systolic heart failure Discharge Exam Constitutional WD/WN, vitals as above Neck trachea midline, no thyromegaly Respiratory normal respiratory effort, lungs clear to auscultation Cardiovascular RRR, no murmur, no edema Gastrointestinal (Abdomen) normal bowel sounds, soft, nontender, no hepatosplenomegaly Musculoskeletal no cyanosis or clubbing, extremities motor strength 5/5 Skin no rashes, warm and dry Neurologic normal touch/pain/proprioception, CN's II-XI intact bilaterally, moves all extremities and awake; no focal motor deficits Psychiatric A+Ox3, euthymic affect Discharge Data Allergies Allergy/AdvReac Type Severity Reaction Status Date / Time No Known Allergies Allergy Verified 12/23/20 10:34 Consultations 12/18/20 19:56 ED Decision to Admit Stat 12/18/20 22:32 Consult Cardiology Routine Hospital Course (1) CHF (congestive heart failure): Ty is a 60-year-old male with a past medical history of CHF with paroxysmal ventricular tachycardia status post ablation with ICD biventricular placement on amiodarone therapy, CKD stage III, A. fib, benign essential tremor, hypothyroidism, and nonischemic cardiomyopathy who presents with progressive shortness of breath, weakness, and orthopnea over the last week. Shortness of breath/orthopnea 2/2 AoC HFrEF EF ~20% - AICD placement 11/07. ECHO at that time showed RA dilation, globally hypokinetic LV - Recent dietary indiscretion including barbecue and baked beans suspicious for salt overload, underlying arrhythmia also likely contributory to form forward flow - Baseline dry weight approximately 115 kg, admitting weight 118.6 kg. - CXR on admission shows cardiomegaly with pulmonary vascular congestion and possible pulmonary edema. - Creatinine baseline approximately 1.51.8, acutely elevated to 2.21 on admission. - Troponin negative. - - Continue entresto 0.5mg PO BID, continue coreg 12.5mg PO BID, continue amiodarone 200mg PO BID responded well to Lasix 40mg IV, Cr is stable discussed with Dr. Castañeda, recommends Torsemide 10mg daily ( he was taking larger doses PRN, will try a daily dose) daily weights at home, fluid and salt restriction, CHF instructions provided has a close follow up appt with Liliam ISLAS this week (2) Atrial fibrillation: - Continue coreg as above - Adequate rate control at time of assessment - Continue rivaroxaban (3) V tach: - Nonsustained, Return to normal paced rhythm following AICD shock - Cardiology consulted, discussed as above. - Continue carvedilol 12.5mg PO BID. This was decreased from 25mg PO BID in October 19 hypotension. can follow up further with financial assistance specialist at [facility], recently had a very long ablation procedure to try to fix this issue (4) CKD (chronic kidney disease) stage 3, GFR 30-59 ml/min: - baseline ~1.8-1.9 - Cr 2.2 on admission, suspect prerenal 2/2 poor forward flow - Torsemide for fluid overload as above - Cr down to baseline (5) Hypothyroidism: - tsh wnl - continue home synthroid (6) On amiodarone therapy: - continue as above (7) Insomnia: - Zolpidem 10mg qHS dose reduced to 5mg qHS PRN (8) DVT prophylaxis: DVT PPx: On Rivaroxaban Diet: 2g sodium restriction Dispo: PCU Code Status: Full Code (9) Presence of biventricular AICD: Total Time Total Time Spent Total Time Spent (In Minutes): 32 Total Time Includes: Examination of the Patient, Discharge Planning, Medication Reconciliation and Communication With Other Providers (discussing plan with Dr. Castañeda) Discharge Plan Discharge Items Patient Disposition: Home - Self-Care Reason For Visit: SHORTNESS OF BREATH, ORTHOPNEA Discharge Diagnosis: Acute on chronic systolic heart failure Condition on Discharge: Good Goals: follow up with heart failure clinic Activity: Resume your previous activity Driving/Machine Use: No limitations Weightbearing: Full weightbearing Non-emergency contact: Primary Care Provider and Printing Table Hand Call non-emergency contact if: you have any medication questions and your symptoms worsen Follow-up/Referrals: Liliam Pedersen PA-C [Physician Batting Machine Operator [employer]] - 12/23/20 10:30 am (Congestive Heart Failure Program Appointment Information Early follow up is essential to managing your heart failure. An appointment has been scheduled for you with the [facility] Heart Failure Program within 7 days of discharge. Anticipate this visit to be 30-60 minutes long. Please expect a forensic scientist phone call from one of our nurses approximately 48 hours from discharge. They will also be placing an order for lab work to be completed 1-2 days prior to your heart failure follow up appointment. Please be sure to have this done so we can go over the results when you come in. Office Location The cardiology office building is located in front of the hospital at [address] Bring the following with you to your follow-up doctor appointments: Please bring your daily weight log any discharge paperwork all of your medication bottles with you to this visit. ) Ricky Juarez MD [Primary Care Provider] - (1 week) Diet: Heart Healthy Fluids: 1800ml (7 cups) Addtl Attending Provider Instructions: Medications: - ENTRESTO: make sure you are taking a full 1 tablet twice a day - TORSEMIDE: cardiology recommends trying to take this 10mg daily instead of just as needed, follow up closely with heart failure clinic Acute on chronic systolic heart failure: responded well to lasix 40mg IV yesterday and today renal function is stable please follow low sodium diet (less than 2gm daily) and fluid restriction of no more than 1800mL a day (this is all fluids) weigh yourself daily, today your weight is 255lbs follow up with Liliam ISLAS in the heart failure clinic keep your follow up appointments in [place] Call 911 and go to the Emergency Room if: * You have tightness or pain in your chest that does not go away with rest or Nitroglycerin * You are very short of breath even with rest Call your doctor if any of the following symptoms or problems start or get worse: * Shortness of breath or difficulty breathing * Wake up at night short of breath * Chest pain * Cough * Swelling of your hands, fee, or legs * More fatigued or tired with your normal activity * Palpitations - sudden fast heart beats WEIGHT * Weigh yourself every morning after using the bathroom. * Use the same scale. * Wear the same amount of clothing. * Write your weight down on your chart. * Call your doctor if you gain more than 2-3 pounds in 1-2 days. MEDICATIONS * Use this discharge instruction sheet for instructions. * Take your medications at the time your doctor ordered. * Do not skip a dose of your medicines. * If you miss a dose of medicine, take as soon as possible, but DO NOT DOUBLE A DOSE. * Read your medicine information when you get home. * Know all of the side effects of your medicine. * Call your doctor's office if you have any side effects. * Be sure all of your doctors know what medicine and herbs you take (including cold, flu, and herbal medicine). * Pain Medicine: If you do not get relief from your pain, please call your doctor for help. Take the following with you to your follow-up doctor appointments: * Weight Chart * Medication List * List of questions Do not drink excessive alcohol, beer or wine. Pending Studies at Discharge: No Stand-Alone Forms: My [facility], Smoking Cessation Medications and DC Order Prescriptions: New Entresto 97-103 mg Tablet 1 tab PO BID Qty: 60 RF: 0 torsemide 10 mg tablet 10 mg PO DAILY Qty: 30 RF: 1 potassium chloride 10 mEq capsule, extended release 10 meq PO DAILY Qty: 30 RF: 1 Continued gabapentin 100 mg capsule See Rx Instructions .ROUTE .COMPLEX RF: 0 carvedilol 25 mg tablet 12.5 mg PO BID RF: 0 cholecalciferol (vitamin D3) 25 mcg (1,000 unit) capsule 50 mcg PO DAILY RF: 0 amiodarone 200 mg tablet 200 mg PO BID Qty: 180 RF: 3 clonazepam [Klonopin] 1 mg Tablet 1.5 mg PO HS RF: 0 multivitamin tablet 1 tab PO BID RF: 0 zolpidem [Ambien] 10 mg tablet 10 mg PO HS RF: 0 rivaroxaban 20 mg tablet 20 mg PO HS RF: 0 albuterol sulfate 90 mcg/actuation HFA aerosol inhaler 1 puff INHALATION QID PRN (Reason: Wheezing) RF: 0 Flovent HFA 110 mcg/actuation HFA aerosol inhaler 2 puff INHALATION BID RF: 0 levothyroxine 112 mcg tablet 112 mcg PO QAM RF: 0 Discontinued eplerenone 25 mg tablet 25 mg PO QPM RF: 0 torsemide 20 mg Tablet 20 mg PO BID PRN (Reason: Edema) RF: 0 Entresto 97-103 mg tablet 0.5 tab PO BID RF: 0 No Action eplerenone 25 mg tablet 25 mg PO DAILY RF: 0 hydrocodone-homatropine 5-1.5 mg/5 mL syrup 5 ml PO TID RF: 0 Discharge Orders: Discharge Order (Routine); Ordered 12/19/20 Ordered By: Jarad Echeverria Admission Data Admit Date/Time: 12/18/20 20:50 Attending Provider: Jarad Echeverria Admit Provider: Uzair Arevalo Primary Care Provider: Ricky Juarez Other Providers: Uzair Arevalo ; Patel Castañeda Other Interventions: Discharge Summary Assessment (RN) Last Done: 12/19/20 13:37 Coding Level of Care Code D/C DAY MANAGEMENT >30 MINS Diagnoses CHF (congestive heart failure) I50.9 Heart failure chronicity: acute on chronic Heart failure type: unspecified Atrial fibrillation I48.21 Atrial fibrillation type: permanent V tach I47.2 CKD (chronic kidney disease) stage 3, GFR 30-59 ml/min N18.30 Hypothyroidism E03.2 Hypothyroidism type: due to medication On amiodarone therapy Z79.899 Insomnia G47.00 DVT prophylaxis Z29.9 Presence of biventricular AICD Z95.810
[2020-12-19] MEDS ORDERED: SACUBITRIL-VALSARTAN 97-103 MG TAB PO SCH (21:00)
== END 2020-12-19 15:17 | disposition home or self-care (01) ==
LOC: ED 17:44 → INTOOBSV 20:50 → SUATTDRO 20:50 → 2E 20:50

== ENCOUNTER 2021-02-19 20:44 | Inpatient (IN) ==
[2021-02-19 21:53] LABS: Basophils # (auto) 0.02 K/uL (0-0.2); Basophils % (auto) 0.2 %; Eosinophils # (auto) 0.09 K/uL (0-0.5); Eosinophils % (auto) 0.9 %; Hematocrit (blood only) 39.1 % (42-52); Immature Granulocytes # (auto) 0.04 K/uL (0.00-0.02); Immature Granulocytes % (auto) 0.4 %; Lymphocytes # (auto) 0.66 K/uL (1.2-3.4); Lymphocytes % (auto) 6.6 %; Mean Corpuscular Hgb Conc 33.2 g/dL (32-36); Mean Corpuscular Volume 93.1 fL (80-100); Mean Platelet Volume 10.3 fL (7.4-10.4); Monocytes # (auto) 0.96 K/uL (0.11-0.59); Monocytes % (auto) 9.6 %; Neutrophils # (auto) 8.25 K/uL (1.4-6.5); Neutrophils % (auto) 82.3 %; Platelet Count 255 K/uL (130-400); RDW Coefficient of Variation 14.9 % (11.5-14.5); RDW Standard Deviation 50.4 fL (36.4-46.3); White Blood Count 10.02 K/uL (4.8-10.8)
[2021-02-19 22:06] LABS: Alanine Aminotransferase 50 U/L (12-78); Albumin Level 3.3 gm/dl (3.4-5.0); Aspartate Aminotransferase 29 U/L (15-37); BUN Creatinine Ratio 16.5 (10-20); Blood Urea Nitrogen 58 mg/dl (7-18); Calcium 9.3 mg/dl (8.5-10.1); Carbon Dioxide 24 mmol/L (21-32); Chloride 99 mmol/L (98-107); Est GFR (African American) 20.1 ml/min; Est GFR (Non-African American) 17.4 ml/min; Glucose 121 mg/dl (70-99); Magnesium 2.5 mg/dl (1.8-2.4); Potassium 3.7 mmol/L (3.5-5.1); Sodium 136 mmol/L (136-145)
[2021-02-19 22:11] LABS: Albumin Globulin Ratio 0.8 (0.9-2); Alkaline Phosphatase 85 U/L (45-117); Bilirubin,Total 1.3 mg/dl (0.2-1); Creatine Kinase 33 U/L (39-308); Globulin 4.4 gm/dl (2.5-4.0); NT Pro B Type Natriuretic Pept 11279 pg/ml (0-900); Total Protein 7.7 gm/dl (6.4-8.2); Troponin I < 0.015 ng/ml (0-0.045)
[2021-02-19 22:45] LABS: Base Excess VBG 0.3 mEq/L; HCO3 VBG 25 mmol/L; PCO2 VBG 40 mmHg (38-50); PO2 VBG 21 mmHg; pH VBG 7.42 (7.36-7.41)
[2021-02-19 22:48] LABS: Oxygen Saturation VBG < 60.0 %
--- NOTE | 2021-02-19 23:29 | Emergency Department Note ---
History of Present Illness General Chief complaint: Shortness of Breath/Dyspnea Stated complaint: DIFFICULTY BREATHING, WALKING, PAIN, WEAKNESS Time Seen by Provider: 02/19/21 21:26 History of Present Illness Maximum Pain Intensity: 10 This 60-year-old presents to the ER complaining of increasing weakness shortness of breath and not feeling well Location: Generalized Quality: Weak Severity: Moderate Duration: Past few weeks Timing: Started few weeks ago Context: Symptoms got much worse today and patient came in Modifying factors: better with rest; worse with activity Patient states her she stopped his Entresto a week and a half ago. He still in his diuretic. He has been retaining fluid. He is worries back in heart failure. Patient states he feels quite weak. It is worse when he lies flat. Patient denies chest pain, fevers, vomiting, diarrhea. Home Medications Medication Instructions Recorded Confirmed Type clonazepam 1 mg tablet (Klonopin) 1.5 mg PO HS 03/07/18 02/19/21 History multivitamin 1 tab PO BID tab 01/08/19 02/19/21 History zolpidem 10 mg tablet (Ambien) 10 mg PO HS 05/07/19 02/19/21 History rivaroxaban 20 mg tablet 20 mg PO HS 04/09/20 02/19/21 History amiodarone 200 mg tablet 200 mg PO BID #180 tab 11/16/20 02/19/21 Rx carvedilol 25 mg tablet 12.5 mg PO BID tab 11/16/20 02/19/21 History cholecalciferol (vitamin D3) 25 50 mcg PO DAILY cap 11/16/20 02/19/21 History mcg (1,000 unit) capsule gabapentin 100 mg capsule See Rx Instructions .ROUTE 11/16/20 02/19/21 History .COMPLEX cap albuterol sulfate 90 mcg/actuation 1 puff INHALATION QID PRN 12/18/20 02/19/21 History aerosol inhaler levothyroxine 112 mcg tablet 112 mcg PO QAM #30 tab 01/25/21 02/19/21 Rx torsemide 10 mg tablet 10 mg PO DAILY 02/19/21 02/19/21 History Allergies Allergy/AdvReac Type Severity Reaction Status Date / Time No Known Allergies Allergy Verified 02/19/21 21:57 Past Med/Surg History Medical History Anticoagulant long-term use Anxiety Atrial fibrillation since 17 yrs old; on xarelto follows with Dr. Morton Chronic systolic (congestive) heart failure CKD (chronic kidney disease) stage 3, GFR 30-59 ml/min Diverticulosis Elevated prolactin level Former smoker Hypothyroidism ICD (implantable cardioverter-defibrillator) in place 2013 @ [facility]--medtronic ICD (implantable cardioverter-defibrillator), biventricular, in situ Kidney stones Marijuana use Mitral regurgitation Nonischemic cardiomyopathy On amiodarone therapy On anticoagulant therapy xarelto Paroxysmal ventricular tachycardia Pituitary abnormality Thyroid nodule V tach Surgical History History of appendectomy History of cardiac cath 1977--no stent History of colonoscopy History of tonsillectomy History of tooth extraction wisdom teeth S/P ablation of ventricular arrhythmia S/P appendectomy Family History Family/Other Family hx of colon cancer maternal uncle Brother A-fib Cardiomyopathy Sudden cardiac arrest Father Sudden Grandfather (Paternal) No problems noted. Mother Cancer Social History Smoking Status: Never smoker Tobacco Type: Cigarettes Cigarettes Per Day: 7; Second Hand Exposure: No; Hx Alcohol Use: Yes Alcohol type: beer and wine Hx Substance Use: No Preferred Language: Niuean Communication Ability: Effective Perinatal Instructor Required: No Beliefs That Will Affect Care: None Current Living Situation: Spouse Feels Safe at Home: Yes Assistive Devices: None Review of Systems A total of 10 systems reviewed and were otherwise negative Physical Exam Vital Signs Vital Signs - 24 hr 02/19/21 20:59 02/19/21 21:24 02/19/21 21:25 Temperature 36 C L Temperature Source Temporal Artery Scan Pulse Rate 75 71 70 Pulse Rate [Apical] Pulse Rate from SpO2 Sensor 71 Pulse Rhythm Regular Pulse Rhythm [Apical] Pulse Strength [Apical] Respiratory Rate 20 24 Respiratory Effort / Characteristics Non-Labored Spontaneous Respiratory Depth Normal Respiratory Pattern Regular Blood Pressure 93/68 L 87/63 L Blood Pressure [Left Arm] Blood Pressure Mean 76 71 Blood Pressure Mean [Left Arm] Blood Pressure Position [Left Arm] Pulse Oximetry 99 98 84 L Oxygen Delivery Method Room Air Oxygen Flow Rate Sepsis Recent Fever Within 48 Hours No Sepsis New/Unexplained Change in Mental Status No Sepsis Action Taken by Nursing No Action Required Pulse Oximetry Post Tiitration 02/19/21 21:42 02/19/21 22:06 02/19/21 22:07 Temperature 36.9 C Temperature Source Oral Pulse Rate 70 Pulse Rate [Apical] 70 Pulse Rate from SpO2 Sensor 70 Pulse Rhythm Pulse Rhythm [Apical] Regular Pulse Strength [Apical] Normal Respiratory Rate 17 27 H Respiratory Effort / Characteristics Non-Labored Respiratory Depth Normal Respiratory Pattern Regular Blood Pressure 93/64 L Blood Pressure [Left Arm] 93/64 L Blood Pressure Mean 73 Blood Pressure Mean [Left Arm] 73 Blood Pressure Position [Left Arm] Lying Pulse Oximetry 84 L 99 99 Oxygen Delivery Method Nasal Cannula Room Air Oxygen Flow Rate 3 Sepsis Recent Fever Within 48 Hours Sepsis New/Unexplained Change in Mental Status Sepsis Action Taken by Nursing Pulse Oximetry Post Tiitration 98 02/19/21 22:08 Temperature Temperature Source Pulse Rate 70 Pulse Rate [Apical] Pulse Rate from SpO2 Sensor Pulse Rhythm Regular Pulse Rhythm [Apical] Pulse Strength [Apical] Respiratory Rate 16 Respiratory Effort / Characteristics Respiratory Depth Respiratory Pattern Blood Pressure Blood Pressure [Left Arm] Blood Pressure Mean Blood Pressure Mean [Left Arm] Blood Pressure Position [Left Arm] Pulse Oximetry 9 L Oxygen Delivery Method Room Air Oxygen Flow Rate Sepsis Recent Fever Within 48 Hours Sepsis New/Unexplained Change in Mental Status Sepsis Action Taken by Nursing Pulse Oximetry Post Tiitration VITALS: Vitals are noted on the nurse's note and reviewed by myself. Vital signs hypotensive which appears to be baseline for this patient by chart review and by patient verifying this. GENERAL: White male mildly working to breathe, SKIN: The skin was without rashes, erythema, edema, or bruising. There is no tenting of the skin. Capillary reflex less than 2 seconds. HEAD: Normocephalic atraumatic. EARS: External auditory canals clear, tympanic membranes pearly [place] without erythema or effusion bilaterally. EYES: Pupils equal round and reactive to light and accommodation. Conjunctivae without injection, sclerae without icterus. Extraocular movements intact. NOSE: Patent, turbinates without inflammation or discharge. MOUTH: Mucous membranes mildly dry. Pharynx without erythema or exudate. Uvula midline. Airway patent. Tongue does not deviate. NECK: Supple without nuchal rigidity. No lymphadenopathy. No thyromegaly. Cervical spine is nontender. No JVD. HEART: Regular rate and rhythm LUNGS: Bibasilar rales No retractions or accessory muscle use. ABDOMEN: Positive bowel sounds x 4. Normal tympanic percussion. Soft, nontender, without masses or organomegaly. [place] sign negative. No guarding or rebound tenderness. No CVA tenderness MUSCULOSKELETAL: No muscle atrophy, erythema, noted. +1 pitting edema up to the mid tib-fib bilaterally NEURO: Patient was alert and oriented to person place and time. Normal sensation to light and sharp touch. No focal neurological deficits. Medical Decision Making Medical Records Attestation: I reviewed the patient's medical records. Home Medications Current Medication List: was personally reviewed by me Laboratory Data Attestation: I reviewed the patient's lab results. Result diagrams: 02/19/21 21:36 02/19/21 21:36 Lab Results 02/19/21 02/19/21 02/19/21 Range/Units 21:36 21:36 21:36 WBC 10.02 (4.8-10.8) K/uL RBC 4.20 L (4.7-6.1) M/uL Hgb 13.0 L (14.0-18.0) g/dL Hct 39.1 L (42-52) % MCV 93.1 (80-100) fL MCH 31.0 (25-34) pg MCHC 33.2 (32-36) g/dL RDW Std Deviation 50.4 H (36.4-46.3) fL RDW Coeff of Mikaela 14.9 H (11.5-14.5) % Plt Count 255 (130-400) K/uL MPV 10.3 (7.4-10.4) fL Immature Gran % (Auto) 0.4 % Neut % (Auto) 82.3 % Lymph % (Auto) 6.6 % [place] % (Auto) 9.6 % Eos % (Auto) 0.9 % Baso % (Auto) 0.2 % Neut # (Auto) 8.25 H (1.4-6.5) K/uL Lymph # (Auto) 0.66 L (1.2-3.4) K/uL [place] # (Auto) 0.96 H (0.11-0.59) K/uL Eos # (Auto) 0.09 (0-0.5) K/uL Baso # (Auto) 0.02 (0-0.2) K/uL Immature Gran # (Auto) 0.04 H (0.00-0.02) K/uL VBG pH (7.36-7.41) VBG pCO2 (38-50) mmHg VBG pO2 mmHg VBG HCO3 mmol/L VBG O2 Saturation % VBG Base Excess mEq/L Barometric Pressure mm/Hg Sodium 136 (136-145) mmol/L Potassium 3.7 (3.5-5.1) mmol/L Chloride 99 (98-107) mmol/L Carbon Dioxide 24 (21-32) mmol/L Anion Gap 13.0 H (3-11) BUN 58 H (7-18) mg/dl Creatinine 3.55 H (0.6-1.4) mg/dl Est Cr Clr Drug Dosing Not Reportable Est GFR ( Amer) 20.1 ml/min Est GFR (Non-Af Amer) 17.4 ml/min BUN/Creatinine Ratio 16.5 (10-20) Glucose 121 H (70-99) mg/dl Calcium 9.3 (8.5-10.1) mg/dl Magnesium 2.5 H (1.8-2.4) mg/dl Total Bilirubin 1.3 H (0.2-1) mg/dl AST 29 (15-37) U/L ALT 50 (12-78) U/L Alkaline Phosphatase 85 (45-117) U/L Total Creatine Kinase 33 L (39-308) U/L Troponin I < 0.015 (0-0.045) ng/ml NT-Pro-B Natriuret Pep 57622 H (0-900) pg/ml Total Protein 7.7 (6.4-8.2) gm/dl Albumin 3.3 L (3.4-5.0) gm/dl Globulin 4.4 H (2.5-4.0) gm/dl Albumin/Globulin Ratio 0.8 L (0.9-2) Procalcitonin 0.08 (0-0.5) ng/ml COVID-19 Eval Order SARS-CoV-2 (PCR) (Negative) 02/19/21 02/19/21 02/19/21 Range/Units 22:29 Unknown Unknown WBC (4.8-10.8) K/uL RBC (4.7-6.1) M/uL Hgb (14.0-18.0) g/dL Hct (42-52) % MCV (80-100) fL MCH (25-34) pg MCHC (32-36) g/dL RDW Std Deviation (36.4-46.3) fL RDW Coeff of Mikaela (11.5-14.5) % Plt Count (130-400) K/uL MPV (7.4-10.4) fL Immature Gran % (Auto) % Neut % (Auto) % Lymph % (Auto) % [place] % (Auto) % Eos % (Auto) % Baso % (Auto) % Neut # (Auto) (1.4-6.5) K/uL Lymph # (Auto) (1.2-3.4) K/uL [place] # (Auto) (0.11-0.59) K/uL Eos # (Auto) (0-0.5) K/uL Baso # (Auto) (0-0.2) K/uL Immature Gran # (Auto) (0.00-0.02) K/uL VBG pH 7.42 H (7.36-7.41) VBG pCO2 40 (38-50) mmHg VBG pO2 21 mmHg VBG HCO3 25 mmol/L VBG O2 Saturation < 60.0 % VBG Base Excess 0.3 mEq/L Barometric Pressure 730.2 mm/Hg Sodium (136-145) mmol/L Potassium (3.5-5.1) mmol/L Chloride (98-107) mmol/L Carbon Dioxide (21-32) mmol/L Anion Gap (3-11) BUN (7-18) mg/dl Creatinine (0.6-1.4) mg/dl Est Cr Clr Drug Dosing Est GFR ( Amer) ml/min Est GFR (Non-Af Amer) ml/min BUN/Creatinine Ratio (10-20) Glucose (70-99) mg/dl Calcium (8.5-10.1) mg/dl Magnesium (1.8-2.4) mg/dl Total Bilirubin (0.2-1) mg/dl AST (15-37) U/L ALT (12-78) U/L Alkaline Phosphatase (45-117) U/L Total Creatine Kinase (39-308) U/L Troponin I (0-0.045) ng/ml NT-Pro-B Natriuret Pep (0-900) pg/ml Total Protein (6.4-8.2) gm/dl Albumin (3.4-5.0) gm/dl Globulin (2.5-4.0) gm/dl Albumin/Globulin Ratio (0.9-2) Procalcitonin (0-0.5) ng/ml COVID-19 Eval Order Covid19 at [facility] SARS-CoV-2 (PCR) NEGATIVE (Negative) Imaging Data Attestation: I personally reviewed and interpreted this imaging study as follows: MDM Narrative Prior records/ancillary studies reviewed and summarized above. Nursing notes reviewed. Additional history obtained from family. The patient's history was concerning for increasing dyspnea weight retention and feeling weak. Differential diagnosis: Etiologies such as metabolic, infection, hypo/hyperglycemia, electrolyte abnormalities, cardiac sources, intracerebral event, toxicologic, neurologic, as well as others were entertained. Physical examination: As above. ER treatment provided: IV Lock An order was placed for continuous cardiac monitoring. The monitor shows a rate of 50-100 with a sinus rhythm. Patient was observed On reassessment the patient felt better. Diagnostics interpretation by me: ECG: Ordered for dyspnea EKG: Paced rhythm with no acute ST-T wave changes, ventricular rate of 71. Impression paced rhythm interpreted by myself The labs revealed elevated BNP. Negative troponin. Elevated creatinine from baseline Imaging studies: Chest x-ray with mild pulmonary congestion per my interpretation. Consultation: A consultation was placed with the hospitalist. The case was discussed and diagnostics were reviewed. The patient was evaluated in the ER for further treatment. Exam and history seem consistent with CHF with acute renal failure. Patient's creatinine is been trending up. He feels more weak. Pulse ox was 84% on room air. He improved on a few liters of nasal cannula. Medicine was consulted. He will be admitted. Blood pressure normally runs around 90. This is unchanged. By the evaluation outlined above emergent etiologies such as infection, electrolyte abnormalities, intracerebral event, toxologic, neurologic, abnormalities blood glucose, metabolic, as well as others were deemed relatively unlikely. The pt informed about the findings as listed above. All questions were answered and pleased with the treatment. The chart was completed utilizing [employer] Speech voice recognition software. Grammatical errors, random word insertions, pronoun errors, and incomplete sentences are an occassional consequence of this system due to software limitations, ambient noise, and hardware issues. Any formal questions or concerns about the content, text, or information contained within the body of this dictation should be directly addressed to the physician assistant golf professional for clarification. Impression & Plan CHF exacerbation, Acute renal failure (ARF) Discharge Plan Visit Data Chief Complaint: Shortness of Breath/Dyspnea Stated Complaint: DIFFICULTY BREATHING, WALKING, PAIN, WEAKNESS ED Provider: Sheng Mohr ED Midlevel Provider: Viola Gilman Discharge Problem: CHF exacerbation, Acute renal failure (ARF) Patient Disposition: Admitted As Inpatient Condition: Fair Forms Stand Alone Forms: [facility] [employer] Prescriptions Prescriptions: No Action levothyroxine 112 mcg tablet 112 mcg PO QAM Qty: 30 RF: 5 gabapentin 100 mg capsule See Rx Instructions .ROUTE .COMPLEX RF: 0 carvedilol 25 mg tablet 12.5 mg PO BID RF: 0 cholecalciferol (vitamin D3) 25 mcg (1,000 unit) capsule 50 mcg PO DAILY RF: 0 amiodarone 200 mg tablet 200 mg PO BID Qty: 180 RF: 3 clonazepam [Klonopin] 1 mg Tablet 1.5 mg PO HS RF: 0 multivitamin tablet 1 tab PO BID RF: 0 zolpidem [Ambien] 10 mg tablet 10 mg PO HS RF: 0 rivaroxaban 20 mg tablet 20 mg PO HS RF: 0 torsemide 10 mg tablet 10 mg PO DAILY RF: 0 albuterol sulfate 90 mcg/actuation HFA aerosol inhaler 1 puff INHALATION QID PRN (Reason: Wheezing) RF: 0 Referrals Referrals: Jameson oRberts MD [Primary Care Provider] -
[2021-02-20] MEDS ORDERED: FUROSEMIDE 40 MG/4 ML VIAL IV STA
--- NOTE | 2021-02-20 00:15 | History & Physical Report ---
Date of Service February 20, 2021 Assessment & Plan (1) Acute kidney injury superimposed on CKD: (2) Chronic systolic (congestive) heart failure: (3) Hypothyroidism: (4) Nonischemic cardiomyopathy: Plan: 60 yo M Hx nonischemic cardiomyopathy with EF of 30% on 12/19/2020, status post AICD, permanent A. fib on chronic Xarelto therapy, CKD stage III, hypothyroidism admitted for shortness of breath and acute on chronic worsening renal function. REBECCA on CKD: -Baseline creatinine of 1.8, however over the last several months has had several hospitalizations for development of acute renal failure, and today presents with creatinine of 3.55 -This is in the setting of increased torsemide use due to subjective symptoms of shortness of breath. -Admitted for similar symptoms to [facility] last month, during which admission he was aggressively diuresed with improvement in kidney function. -During that admission did have renal ultrasound revealing bilateral cysts but no findings suggestive of infection, obstructive process. -Unclear cause given patient is subjectively short of breath but appears fairly clinically euvolemic on exam. Suspect cardiorenal syndrome/problems with forward flow as opposed to decreased volume/dehydration. -Patient's blood pressures run on the lower side so would take care with diuresis. Have placed nephrology consult for assistance given worsening renal function without findings to suggest dehydration on exam or lab work. BUN/creatinine ratio less than 20. -Closely monitor intake and output. CHF, nonischemic cardiomyopathy, atrial fibrillation: -Last Echocardiogram in December showing EF 30%. -Patient is s/p AICD, and s/p ablation several months ago for ventricular arrhythmia. -Patient was on Entresto, but this was discontinued several weeks ago due to hypotension. -Current diuretic regimen at home is 10 mg as needed for weight gain, subjective shortness of breath. -We will hold p.o. torsemide, and have given Lasix 40 mg IV x1. Will defer further diuretics to the discretion of day team with the assistance of both cardiology and nephrology teams. -Continue amiodarone for A. fib rhythm control. Xarelto transitioned to heparin given reduced creatinine clearance. -Record daily weights, and intake/output as above. -Heart healthy, low-sodium diet. Hypothyroidism: -Continue home levothyroxine. Anxiety, insomnia, neuropathy: -Continue home benzodiazepine and zolpidem dose. -Continue home gabapentin. CODE STATUS: Full code DVT prophylaxis: Heparin SQ twice daily FEN: Heart healthy, low-sodium diet Dispo: Telemetry History of Present Illness Chief Complaint: SOB, weakness Primary Care Provider: Jameson Roberts MD 60 yo M Hx nonischemic cardiomyopathy with EF of 30% on 12/19/2020, status post AICD, permanent A. fib on chronic Xarelto therapy, CKD stage III, hypothyroidism presented to the ER for 4 to 5 days of worsening shortness of breath and profound generalized weakness. He reports that due to his worsening shortness of breath over the last couple of days he increased his torsemide to 50 mg yesterday without any increase in urine output or improvement in his sensation of shortness of breath. Today when he was still feeling short of breath and his partner had to help him get out of bed and put on his clothes, they came to the hospital for urgent evaluation. Evaluation in the ER revealed worsening creatinine to 3.55 with last check prior to that in [facility] records of 2.77 on 02/16/2021. BNP elevated to 11,279 with last reported level of ~2000 in December. Chest x-ray did not show overt signs of fluid overload. He was noted to be hypotensive today 8090s/60s, which the patient reports he often runs that low. Was noted to be briefly hypoxic and placed on 3 L nasal cannula, however was able to be de-escalated to room air with O2 sat of 94%, though still with subjective symptoms of shortness of breath. At time of my interview patient re ported weakness and shortness of breath; denied abdominal pain, nausea, vomiting, recent fevers or chills, URI symptoms, chest pain. Of note, patient was admitted to [facility] on 02/07 for REBECCA on CKD with a creatinine of 3.31; on discharge 02/10 his creatinine was 2.32. During that admission he was diuresed with Lasix, fluid restricted, and placed on a low-sodium heart healthy diet due to suspicion for cardiorenal syndrome. He follows with Liliam Pedersen in the heart failure clinic, with last reported dry weight of 241 lbs. He does not admit to a recent increase in dietary indis cretion, and reports that since his discharge from her she has been eating significantly less saltcontaining foods, and in fact has not been eating much in general due to "most of the foods that he likes having salt in them". Case was discussed with Dr. Morton who recommended trial of IV Lasix with repeat lab work in the morning. Allergies Allergy/AdvReac Type Severity Reaction Status Date / Time No Known Allergies Allergy Verified 02/19/21 21:57 Home Medications Medication Instructions Recorded Confirmed Type clonazepam 1 mg tablet (Klonopin) 1.5 mg PO HS 03/07/18 02/19/21 History multivitamin 1 tab PO BID tab 01/08/19 02/19/21 History zolpidem 10 mg tablet (Ambien) 10 mg PO HS 05/07/19 02/19/21 History rivaroxaban 20 mg tablet 20 mg PO HS 04/09/20 02/19/21 History amiodarone 200 mg tablet 200 mg PO BID #180 tab 11/16/20 02/19/21 Rx carvedilol 25 mg tablet 12.5 mg PO BID tab 11/16/20 02/19/21 History cholecalciferol (vitamin D3) 25 50 mcg PO DAILY cap 11/16/20 02/19/21 History mcg (1,000 unit) capsule gabapentin 100 mg capsule See Rx Instructions .ROUTE 11/16/20 02/19/21 History .COMPLEX cap albuterol sulfate 90 mcg/actuation 1 puff INHALATION QID PRN 12/18/20 02/19/21 History aerosol inhaler levothyroxine 112 mcg tablet 112 mcg PO QAM #30 tab 01/25/21 02/19/21 Rx torsemide 10 mg tablet 10 mg PO DAILY 02/19/21 02/19/21 History Past Med/Surg History Medical History Anticoagulant long-term use Anxiety Atrial fibrillation since 17 yrs old; on xarelto follows with Dr. Morton Chronic systolic (congestive) heart failure CKD (chronic kidney disease) stage 3, GFR 30-59 ml/min Diverticulosis Elevated prolactin level Former smoker Hypothyroidism ICD (implantable cardioverter-defibrillator) in place 2013 @ [facility]--medtronic ICD (implantable cardioverter-defibrillator), biventricular, in situ Kidney stones Marijuana use Mitral regurgitation Nonischemic cardiomyopathy On amiodarone therapy On anticoagulant therapy xarelto Paroxysmal ventricular tachycardia Pituitary abnormality Thyroid nodule V tach Surgical History History of appendectomy History of cardiac cath 1977--no stent History of colonoscopy History of tonsillectomy History of tooth extraction wisdom teeth S/P ablation of ventricular arrhythmia S/P appendectomy Family History Family/Other Family hx of colon cancer maternal uncle Brother A-fib Cardiomyopathy Sudden cardiac arrest Father Sudden Grandfather (Paternal) No problems noted. Mother Cancer Social History Smoking Status: Former smoker Tobacco Type: Cigarettes Cigarettes Per Day: 7; Second Hand Exposure: No; Hx Alcohol Use: No Hx Substance Use: No Preferred Language: Irish Communication Ability: Effective Licensed Massage Therapist Required: No Beliefs That Will Affect Care: None marital status: Current Living Situation: Spouse Feels Safe at Home: Yes Assistive Devices: None Review of Systems Review of Systems: All systems reviewed & are unremarkable except as noted in HPI & below Constitutional: + malaise and + weakness; no fever and no chills Respiratory: + dyspnea; no cough Cardiovascular: + edema; no chest pain and no palpitations Gastrointestinal: no abdominal pain, no constipation and no diarrhea/loose stools Physical Exam Constitutional: WD/WN, vitals as above Eyes: PERRL, conjunctivae normal, anicteric sclerae ENMT: external ear and nose normal, oropharynx normal Neck: normal visual inspection Respiratory: normal respiratory effort; no cough Bibasilar crackles Cardiovascular: Rate/Rhythm: regular rate and regular rhythm Heart Sounds: no murmur Extremities: + edema (1+ bilateral LE to mid-rosales) Gastrointestinal (Abdomen): normal bowel sounds, soft, nontender, no hepatosplenomegaly Musculoskeletal: Extremities: no cyanosis and no clubbing Skin: no rashes, warm and dry Neurologic: AAOx3, normal speech. PERRLA, EOMI, no nystagmus. Psychiatric: A+Ox3, euthymic affect Results & Data Results & Data ([facility]) Vital Signs (Past 12 Hours) Vital Signs Temp Pulse Pulse Resp BP BP Pulse Ox 02/19/21 22:08 70 16 9 L 02/19/21 22:07 70 27 H 93/64 L 99 02/19/21 22:06 36.9 C 70 17 93/64 L 99 02/19/21 21:42 84 L 02/19/21 21:25 70 84 L 02/19/21 21:24 71 24 87/63 L 98 02/19/21 20:59 36 C L 75 20 93/68 L 99 Code Status & VTE Plan VTE Prophylaxis Plan VTE Prophylaxis will be ordered: Yes Supervising Physician Co-Signing Physician Notes Attending addendum: I have physically seen this patient, have supervised the medical residents activities, and agree with the H&P unless as otherwise noted. Assessment and Plan: REBECCA on CKD- Creatinine 3.55 admission, with baseline 1.8- Likely secondary to decreased forward flow with associated EF 30% Likely benefit from dobutamine, at the interim will place on Lasix 40 mg IV x1, holding p.o. torsemide Acute on chronic systolic CHF/nonischemic cardiomyopathy/atrial fibrillation/status post AICD and ablation Entresto held several weeks ago due to hypotension Continue amiodarone Change Xarelto to heparin infusion as inpatient Recommended IV dobutamine as noted above Remaining orders and notations as noted Resident Activity Tracking Resident Involvement: Resident Care Provided Care Provided: Adult Hospital Medicine (1) Hypothyroidism Hypothyroidism type: due to medication Qualified Code(s): E03.2 - Hypothyroidism due to medicaments and other exogenous substances
[2021-02-20] MEDS ORDERED: ALBUTEROL HFA 8 GM INHALER INH PRN (00:32)
[2021-02-20] MEDS ORDERED: ACETAMINOPHEN 325 MG TAB PO PRN (00:32)
[2021-02-20] MEDS ORDERED: ONDANSETRON INJ 2 MG/ML 2 ML VIAL IV PRN (00:32)
[2021-02-20] MEDS ORDERED: PATIENT'S HEIGHT AND/OR WEIGHT NEEDED STA (00:37)
--- NOTE | 2021-02-20 00:39 | Emergency Department Note ---
ED Visit Note I have personally evaluated this patient examined him and reviewed the pertinent labs and data. I have discussed the case with the physician mobile sales assistant and agree with the plan. Please refer to the PA note. This patient has a very complex medical history with renal and cardiac disease he comes in after feeling weak. His creatinine has increased to 3.5 they have been adjusting his medications. His ABG was normal. His blood pressure is on the low side but he says he normally runs low. My exam he is resting comfortably but just complains of feeling very weak. We have consulted the hospitalist to see him for admission/observation. . : CHF exacerbation Qualifiers: Heart failure type: unspecified Qualified Code(s): I50.9 - Heart failure, unspecified
[2021-02-20] MEDS ORDERED: ZOLPIDEM TARTRATE 10 MG TAB PO ONE (01:58)
[2021-02-20] MEDS ORDERED: Heparin IV Adult Wt-Based Low-Dose *NO* Bolus Protocol IV STA (02:01)
[2021-02-20] MEDS ORDERED: clonazePAM 0.5 MG TAB PO ONE (02:04)
[2021-02-20 04:52] LABS: Hematocrit (blood only) 30.8 % (42-52); Hemoglobin 10.4 g/dL (14.0-18.0); Mean Corpuscular Hemoglobin 30.9 pg (25-34); Mean Corpuscular Hgb Conc 33.8 g/dL (32-36); Mean Corpuscular Volume 91.4 fL (80-100); Mean Platelet Volume 9.2 fL (7.4-10.4); Platelet Count 204 K/uL (130-400); RDW Coefficient of Variation 14.7 % (11.5-14.5); Red Blood Count 3.37 M/uL (4.7-6.1); White Blood Count 6.59 K/uL (4.8-10.8)
[2021-02-20 05:09] LABS: Albumin Level 2.6 gm/dl (3.4-5.0); Calcium 8.7 mg/dl (8.5-10.1); Creatinine Clr Calc Pharmacy 31.6 ml/min; Est GFR (Non-African American) 18.1 ml/min; Potassium 3.4 mmol/L (3.5-5.1)
[2021-02-20 05:12] LABS: Partial Thromboplastin Ratio 1.8
[2021-02-20 05:18] LABS: Albumin Globulin Ratio 0.8 (0.9-2); Bilirubin,Total 1.2 mg/dl (0.2-1); Globulin 3.3 gm/dl (2.5-4.0); Total Protein 5.9 gm/dl (6.4-8.2)
[2021-02-20] MEDS: HEPARIN SODIUM/DEXTROSE 25,000 UNITS/500 ML BAG IV SCH (06:06)
[2021-02-20] MEDS ORDERED: POTASSIUM CHLORIDE CRTAB 20 MEQ TABCR PO STA ×2 (06:46→08:48)
--- NOTE | 2021-02-20 07:37 | XRay Report ---
XR chest 1V portable INDICATION: MN ^Y ^Dyspnea . TECHNIQUE: Single frontal radiograph of the chest was obtained. Comparison: Comparison is made to chest one view 12/18/2020 FINDINGS: Stable appearance of pacemaker defibrillator. The cardiomediastinal silhouette is stable. There is pr ominence and cephalization of the vasculature with Maria Del Carmen B lines seen. Questionable airspace opaciti es in the right lower lung. No evidence of pleural effusion or pneumothorax. IMPRESSION: Moderate pulmonary edema with possible superimposed atelectasis, aspiration, and/or pneumonia. ACT 112: Negative or not required by law. Electronically signed by: Jarad Pizano M.D. 02/20/2021 7:36 AM
--- NOTE | 2021-02-20 08:10 | CT Scan Report ---
CT head/brain wo con Clinical Indication: MN ^weak. Technique: Contiguous axial CT images of the head were acquired from the base of the skull to the adriana aries without intravenous contrast administration. Images were viewed in brain, subdural and bone [facility]. Automated dose lowering techniques and/or adjustment according to patient size were utilized for this exam. Comparison: None available at the time of this dictation. Findings: The ventricles, basal cisterns, and cerebral sulci are normal. There is no acute intracranial hemorrh age or evidence of acute territorial infarction. Neither mass effect, shift of the midline structures , nor abnormal extra-axial fluid collections are shown. Imaged portions of the paranasal sinuses and mastoid air cells are clear. The orbits appear normal. There are no acute fractures of the calvaria or scalp swelling. Impression: No acute intracranial hemorrhage, evidence of acute territorial infarction, or other acute intracrani al disease process. ACT 112: Negative or not required by law. Electronically signed by: Jarad Pizano M.D. 02/20/2021 8:08 AM
[2021-02-20] MEDS: MULTIVITAMIN TAB PO SCH (08:51)
[2021-02-20] MEDS: AMIODARONE 200 MG TAB PO SCH ×2 (08:51→20:20)
[2021-02-20] MEDS: CHOLECALCIFEROL 1,000 UNITS 25 MCG TAB PO SCH (08:51)
[2021-02-20] MEDS: LEVOTHYROXINE SODIUM 112 MCG TABLET PO SCH (08:51)
[2021-02-20] MEDS: GABAPENTIN 100 MG CAP PO SCH ×2 (08:51→12:28)
[2021-02-20] MEDS ORDERED: HEPARIN SOD 5,000 UNIT/0.5 ML VIAL SQ SCH (09:00)
[2021-02-20] MEDS: carvediloL 12.5 MG TAB PO SCH ×2 (09:04→20:20)
[2021-02-20 12:18] LABS: Partial Thromboplastin Ratio 2.7
[2021-02-20 12:20] LABS: Partial Thromboplastin Time 71.4 Seconds (21.0-31.0)
--- NOTE | 2021-02-20 14:31 | Electrocardiogram Report ---
Test Reason : Blood Pressure : / mmHG Vent. Rate : 071 BPM Atrial Rate : 071 BPM P-R Int : 000 ms QRS Dur : 208 ms QT Int : 598 ms P-R-T Axes : 000 260 056 degrees QTc Int : 649 ms Ventricular-paced rhythm Biventricular pacemaker detected Abnormal ECG When compared with ECG of 19-DEC-2020 04:53, Vent. rate has decreased BY 3 BPM Confirmed by Homero Beauchamp ([id number]) on 02/20/2021 2:31:07 PM Referred By: REFERRED SELF Confirmed By:Agustin Beauchamp
--- NOTE | 2021-02-20 15:25 | Hospitalist Progress Note ---
Date of Service February 20, 2021 Assessment & Plan (1) CHF exacerbation: Plan: Ty Lewis is a 60 yo male with PMHx significant for HFrEF 2/2 nonischemic cardiomyopathy (EF 30% in 12/2020), status post AICD, permanent a-fib (on Xarelto), CKD stage III, and hypothyroidism who was admitted to for shortness of breath and acute on chronic worsening renal function. Acute on Chronic HFrEF, Nonischemic Cardiomyopathy EF 30% in 12/2020, increasing dyspnea/orthopnea despite increased diuretic regimen for one month, BNP ~11,000 this admission. - Cardiology consulted - pending - s/p Lasix 40mg IV x1 on admission; will hold on further diuresis due to hypotension - I suspect this patient may need to be evaluated for possible ventricular assist device vs transplant given hypotension and renal failure, in addition to severe HFrEF - strict I/Os, daily weights - continue home Carvedilol as BP tolerates REBECCA on CKDIII Cr increasing from 1.8 to low 3s over last several months, Cr 3.55 on admission. Suspect multiple etiologies due to increased diuretic use as well as possible cardiorenal syndrome. - Nephrology consulted - appreciate recs Permanent Atrial Fibrillation - Continue home Amiodarone - transitioned from Xarelto to Heparin gtt given reduced creatinine clearance. Hypothyroidism - Continue home levothyroxine Anxiety, insomnia, neuropathy - Continue home benzodiazepine and zolpidem dose. - Continue home gabapentin. Code Status: Full code DVT ppx: Heparin gtt FEN: Heart healthy, low-sodium diet Dispo: PCU w/ tele (2) Acute kidney injury superimposed on CKD: (3) REBECCA (acute kidney injury): (4) Atrial fibrillation, permanent: (5) ICD (implantable cardioverter-defibrillator), biventricular, in situ: (6) Nonischemic cardiomyopathy: (7) Chronic systolic (congestive) heart failure: (8) Dyslipidemia: (9) Esophageal reflux: (10) Peripheral neuropathy: (11) Hypothyroidism: (12) On amiodarone therapy: Admission and Anticipated Discharge Date Admission Date: February 20, 2021 Supervising Physician Co-Signing Physician Notes Attending attestation Pt seen and examined in concert with Dr. Gillis. In agreement with the documented findings as noted in the resident documentation with any exceptions or additions as noted here. Improved SOB from admission but still considerably short of baseline. Patient reviews recurrent worsening of symptoms similar to previous exacerbations and to the recent exacerbation resulting in admission to [facility]. Reviewed current state of management re: diuresis in the setting of REBECCA on CKD, potential impacts of procedural intervention and the pending specialist consultations. He asks repeatedly, what would you do? To which I responded that I would get the options quickly and assess them to help make the choice, and that is what the primary team is here for. On examination, S1/S2 nl RRR no MCG. Right basilar rales and decreased breath sounds bilateral bases. Abd NT/ND BS+ve Hypotension - multifactorial - close monitoring, low threshold for ICU consult, pending consultations as below HFrEF with exacerbation, NICM - 30% in 01/07 - cardiology consult - continue carvedilol, cautious diuresis in the setting of REBECCA on CKDIII REBECCA on CKDIII - nephrology consult - likely combination of fluid overload and iatrogenic impact of 10-50mg of torsemide daily since recent HF exacerbation. Brief review of treatment options at patient request including general description of dialysis Else see resident documentation as noted. Subjective No acute events overnight. Patient reports worsening orthopnea/dyspnea x1 month despite increased diuresis. Denies SOB on 2L NC. Denies current fever/chills, chest pain, palpitations, cough, N/V, abdominal pain, rash. Review of Systems Review of Systems: All systems reviewed & are unremarkable except as noted in HPI & below Physical Exam Physical Exam: General: A&Ox3. NAD. Cooperative. HEENT: Atraumatic, normocephalic. Pulm: Faint right-sided basilar crackles. No wheezesi. Symmetrical chest rise. No increase work of breathing. No respiratory distress. Cardiac: RRR, -mrg. Radial pulses intact and symmetrical. No LE edema Abdominal: soft, non-tender, non-distended, BS x 4 Skin: warm, dry, no rash Results & Data Results & Data ([facility]) Vital Signs (Past 12 Hours) Vital Signs Temp Pulse Resp BP Pulse Ox 02/20/21 12:21 36.7 C 70 22 85/66 L 99 02/20/21 09:00 72 17 97/69 L 98 02/20/21 08:12 36.7 C 73 24 88/69 L 98 02/20/21 07:00 82 19 95 02/20/21 05:11 70 18 88/59 L 97 02/20/21 04:41 70 19 88/60 L 98 02/20/21 04:11 70 19 85/57 L 97 02/20/21 03:41 70 21 85/59 L Resident Activity Tracking Resident Involvement: Resident Care Provided Care Provided: Adult Hospital Medicine (1) CHF exacerbation Heart failure type: unspecified Qualified Code(s): I50.9 - Heart failure, unspecified (2) Hypothyroidism Hypothyroidism type: due to medication Qualified Code(s): E03.2 - Hypothyroidism due to medicaments and other exogenous substances (3) Esophageal reflux Esophagitis presence: without esophagitis Qualified Code(s): K21.9 - Gastro- esophageal reflux disease without esophagitis
[2021-02-20] MEDS ORDERED: STAT IV Infusion **Titration per Protocol STA (16:12)
--- NOTE | 2021-02-20 16:32 | Cardiology Consultation ---
Date of Consultation February 20, 2021 Assessment & Plan (1) CHF exacerbation: He likely has an element of cardiorenal syndrome. His fluid status has been somewhat tenuous over the past few weeks. It seems that he easily developed some element of pulmonary congestion at times may have some intravascular depletion. However things are complicated by poor perfusion of the kidneys. He is scheduled to be evaluated for more advanced heart failure therapies later this month. In the short term, I think affecting a diuresis is paramount. He did receive 1 dose of diuretic since admission with good effect. I think low-dose dopamine infusion may improve renal perfusion and affect more of a diuresis as well. Clearly this is a temporizing measure and long-term therapy will need to involve some way to mitigate recurrence. In the absence of diuresis or improvement in renal function with dopamine infusion, a right heart catheterization may be a benefit to see if he has an element of intravascular depletion or more right verses left-sided heart failure. (2) Atrial fibrillation, permanent: Patient's renal function has declined to the point where Xarelto is a less attractive agent. This is been discontinued. We can continue heparin in fusion into were confident no procedures are required. Will probably have decision by tomorrow. He appears to be a better candidate for either warfarin or apixaban. (3) ICD (implantable cardioverter-defibrillator), biventricular, in situ: No recent therapies. (4) Nonischemic cardiomyopathy: Previously on carvedilol, Entresto And eplerenone. Entresto Was recently discontinued due to concerns of hypotension and renal function. He will need to see if he is a candidate moving forward. Jardiance Seems like an attractive addition to his medical regimen, but at his current level of renal function I would not initiate this medication. It seems that has been tested recently for Richie-A as a possible etiology for is cardiomyopathy. (5) Paroxysmal ventricular tachycardia: He has not received any therapies recently. However, his device was not interrogated to see if there has been ATP. he does follow at the [facility] and has been advised to consider radiation therapy As an adjunct to his prior VT ablation. (6) Mitral regurgitation: Moderate. Functional. History of Present Illness Reason for Consultation: Dyspnea, weakness, renal failure Requesting Physician: Rosa Elena Attending Physician: Cade Grijalva MD History of Present Illness the patient is a 60-year-old gentleman with an extensive cardiac history to include permanent atrial fibrillation and a longstanding nonischemic cardiomyopathy. He has also had multiple episodes of ventricular tachycardia, implantation of a biventricular ICD and an ablation for ventricular tachycardia at the [facility]. Patient was actually admitted at an outside facility a few weeks ago for decompensated heart failure and acute renal failure. Over the past couple of weeks the patient has reported progressive worsening and overall weakness and breathing difficulty. It seems that he has great difficulty getting around his residence. He states that climbing the stairs to go to bed at nighttime has become "a disaster". A lot of this has to do with breathing trouble but he also has significant muscle and joint discomfort. yesterday he was severely weak and had generalized discomfort. In addition to his breathing difficulties and weight gain he felt it was necessary to seek medical attention. The patient has attempted to limit sodium in his diet. He generally takes 10 milligrams of torsemide daily. Yesterday he decided to take 50 milligrams of torsemide without a significant diuresis by report. He has not had any therapies from his device recently. He has not report specific chest pain. He has some difficulty sleeping at nighttime but he did not report orthopnea. He has what he feels to be some abdominal distension. He has intermittent swelling in his lower extremities. At the time of my interview the patient states that his breathing is better but not quite back to baseline. Allergies Allergy/AdvReac Type Severity Reaction Status Date / Time No Known Allergies Allergy Verified 02/19/21 21:57 Home Medications Medication Instructions Recorded Confirmed Type clonazepam 1 mg tablet (Klonopin) 1.5 mg PO HS 03/07/18 02/19/21 History multivitamin 1 tab PO BID tab 01/08/19 02/19/21 History zolpidem 10 mg tablet (Ambien) 10 mg PO HS 05/07/19 02/19/21 History rivaroxaban 20 mg tablet 20 mg PO HS 04/09/20 02/19/21 History amiodarone 200 mg tablet 200 mg PO BID #180 tab 11/16/20 02/19/21 Rx carvedilol 25 mg tablet 12.5 mg PO BID tab 11/16/20 02/19/21 History cholecalciferol (vitamin D3) 25 50 mcg PO DAILY cap 11/16/20 02/19/21 History mcg (1,000 unit) capsule gabapentin 100 mg capsule See Rx Instructions .ROUTE 11/16/20 02/19/21 History .COMPLEX cap albuterol sulfate 90 mcg/actuation 1 puff INHALATION QID PRN 12/18/20 02/19/21 History aerosol inhaler levothyroxine 112 mcg tablet 112 mcg PO QAM #30 tab 01/25/21 02/19/21 Rx torsemide 10 mg tablet 10 mg PO DAILY 02/19/21 02/19/21 History apixaban 5 mg tablet (Eliquis) 5 mg PO BID #60 tab 02/22/21 Rx bumetanide 2 mg tablet 2 mg PO DAILY #30 tab 02/22/21 Rx Patient History Medical History Anticoagulant long-term use Anxiety Atrial fibrillation since 17 yrs old; on xarelto follows with Dr. Morton Cardiomyopathy as manifestation of underlying disease Chronic systolic (congestive) heart failure CKD (chronic kidney disease) stage 3, GFR 30-59 ml/min Diverticulosis Elevated prolactin level Former smoker Hypothyroidism ICD (implantable cardioverter-defibrillator) in place 2013 @ [facility]--medtronic ICD (implantable cardioverter-defibrillator), biventricular, in situ Kidney stones Marijuana use Mitral regurgitation Nonischemic cardiomyopathy On amiodarone therapy On anticoagulant therapy xarelto Palliative care encounter Paroxysmal ventricular tachycardia Pituitary abnormality Shortness of breath Thyroid nodule V tach Surgical History History of appendectomy History of cardiac cath 1977--no stent History of colonoscopy History of tonsillectomy History of tooth extraction wisdom teeth S/P ablation of ventricular arrhythmia S/P appendectomy Family History Family/Other Family hx of colon cancer maternal uncle Brother A-fib Cardiomyopathy Sudden cardiac arrest Father Sudden Grandfather (Paternal) No problems noted. Mother Cancer Social History Smoking Status: Former smoker Tobacco Type: Cigarettes Cigarettes Per Day: 7; Second Hand Exposure: No; Hx Alcohol Use: No Hx Substance Use: No Preferred Language: Burundian Communication Ability: Effective Shift Supervisor Melting Required: No Beliefs That Will Affect Care: None marital status: Current Living Situation: Spouse Feels Safe at Home: Yes Assistive Devices: Oxygen - Continuous Review of Systems Review of Systems: Per HPI. No subjective fevers or chills recently. Physical Exam Physical Exam: The patient is alert and oriented. Mood and affect appeared normal. He answered all questions appropriately. HEENT: Pupils are equal and reactive to light and accommodation. Extraocular movements are intact. The sclerae are anicteric. Neuro: Cranial nerves intact Lungs: Crackles in the bases bilaterally. Occasional expiratory bronchial breath sounds. Normal respiratory effort. Normal pulmonary excursion. Cardiac: Heart demonstrates a regular rate and rhythm. Normal S1 and S2. Holosystolic murmur of variable intensity. Pulses: The patient has palpable radial pulses bilaterally that are equal in intensity Extremities: There was no evidence of hypoperfusion. There is no cyanosis or clubbing. Mild lower extremity edema. Skin: I did not appreciate any rashes on examination today. Results & Data ([facility]) Vital Signs (Past 12 Hours) Vital Signs Temp Pulse Resp BP Pulse Ox 02/20/21 12:21 36.7 C 70 22 85/66 L 99 02/20/21 09:00 72 17 97/69 L 98 02/20/21 08:12 36.7 C 73 24 88/69 L 98 02/20/21 07:00 82 19 95 02/20/21 05:11 70 18 88/59 L 97 02/20/21 04:41 70 19 88/60 L 98 Laboratory Results Abnormal Lab Results 02/19/21 02/19/21 02/19/21 21:36 21:36 21:36 WBC 10.02 RBC 4.20 L Hgb 13.0 L Hct 39.1 L MCV 93.1 MCH 31.0 MCHC 33.2 RDW Std Deviation 50.4 H RDW Coeff of Mikaela 14.9 H Plt Count 255 MPV 10.3 Immature Gran % (Auto) 0.4 Neut % (Auto) 82.3 Lymph % (Auto) 6.6 Greene % (Auto) 9.6 Eos % (Auto) 0.9 Baso % (Auto) 0.2 Neut # (Auto) 8.25 H Lymph # (Auto) 0.66 L Greene # (Auto) 0.96 H Eos # (Auto) 0.09 Baso # (Auto) 0.02 Immature Gran # (Auto) 0.04 H PT INR APTT PTT Ratio VBG pH VBG pCO2 VBG pO2 VBG HCO3 VBG O2 Saturation VBG Base Excess Barometric Pressure Sodium 136 Potassium 3.7 Chloride 99 Carbon Dioxide 24 Anion Gap 13.0 H BUN 58 H Creatinine 3.55 H Est Cr Clr Drug Dosing Not Reportable Est GFR ( Amer) 20.1 Est GFR (Non-Af Amer) 17.4 BUN/Creatinine Ratio 16.5 Glucose 121 H Calcium 9.3 Magnesium 2.5 H Total Bilirubin 1.3 H AST 29 ALT 50 Alkaline Phosphatase 85 Total Creatine Kinase 33 L Troponin I < 0.015 NT-Pro-B Natriuret Pep 25936 H Total Protein 7.7 Albumin 3.3 L Globulin 4.4 H Albumin/Globulin Ratio 0.8 L Procalcitonin 0.08 Nasal Screen MRSA (PCR) COVID-19 Eval Order SARS-CoV-2 (PCR) 02/19/21 02/19/21 02/19/21 22:29 22:30 Unknown WBC RBC Hgb Hct MCV MCH MCHC RDW Std Deviation RDW Coeff of Mikaela Plt Count MPV Immature Gran % (Auto) Neut % (Auto) Lymph % (Auto) Greene % (Auto) Eos % (Auto) Baso % (Auto) Neut # (Auto) Lymph # (Auto) Greene # (Auto) Eos # (Auto) Baso # (Auto) Immature Gran # (Auto) PT 19.0 H INR 2.0 H APTT PTT Ratio VBG pH 7.42 H VBG pCO2 40 VBG pO2 21 VBG HCO3 25 VBG O2 Saturation < 60.0 VBG Base Excess 0.3 Barometric Pressure 730.2 Sodium Potassium Chloride Carbon Dioxide Anion Gap BUN Creatinine Est Cr Clr Drug Dosing Est GFR ( Amer) Est GFR (Non-Af Amer) BUN/Creatinine Ratio Glucose Calcium Magnesium Total Bilirubin AST ALT Alkaline Phosphatase Total Creatine Kinase Troponin I NT-Pro-B Natriuret Pep Total Protein Albumin Globulin Albumin/Globulin Ratio Procalcitonin Nasal Screen MRSA (PCR) COVID-19 Eval Order Covid19 at [facility] SARS-CoV-2 (PCR) 02/19/21 02/20/21 02/20/21 Unknown 01:15 04:42 WBC 6.59 RBC 3.37 L Hgb 10.4 L Hct 30.8 L MCV 91.4 MCH 30.9 MCHC 33.8 RDW Std Deviation 49.0 H RDW Coeff of Mikaela 14.7 H Plt Count 204 MPV 9.2 Immature Gran % (Auto) Neut % (Auto) Lymph % (Auto) Greene % (Auto) Eos % (Auto) Baso % (Auto) Neut # (Auto) Lymph # (Auto) Greene # (Auto) Eos # (Auto) Baso # (Auto) Immature Gran # (Auto) PT INR APTT PTT Ratio VBG pH VBG pCO2 VBG pO2 VBG HCO3 VBG O2 Saturation VBG Base Excess Barometric Pressure Sodium Potassium Chloride Carbon Dioxide Anion Gap BUN Creatinine Est Cr Clr Drug Dosing Est GFR ( Amer) Est GFR (Non-Af Amer) BUN/Creatinine Ratio Glucose Calcium Magnesium Total Bilirubin AST ALT Alkaline Phosphatase Total Creatine Kinase Troponin I NT-Pro-B Natriuret Pep Total Protein Albumin Globulin Albumin/Globulin Ratio Procalcitonin Nasal Screen MRSA (PCR) Negative COVID-19 Eval Order SARS-CoV-2 (PCR) NEGATIVE 02/20/21 02/20/21 02/20/21 04:42 04:42 11:48 WBC RBC Hgb Hct MCV MCH MCHC RDW Std Deviation RDW Coeff of Mikaela Plt Count MPV Immature Gran % (Auto) Neut % (Auto) Lymph % (Auto) Greene % (Auto) Eos % (Auto) Baso % (Auto) Neut # (Auto) Lymph # (Auto) Greene # (Auto) Eos # (Auto) Baso # (Auto) Immature Gran # (Auto) PT INR APTT 47.0 H* 71.4 H* PTT Ratio 1.8 2.7 VBG pH VBG pCO2 VBG pO2 VBG HCO3 VBG O2 Saturation VBG Base Excess Barometric Pressure Sodium 134 L Potassium 3.4 L Chloride 105 Carbon Dioxide 26 Anion Gap 3.0 BUN 62 H Creatinine 3.43 H Est Cr Clr Drug Dosing 31.6 Est GFR ( Amer) 21.0 Est GFR (Non-Af Amer) 18.1 BUN/Creatinine Ratio 18.0 Glucose 112 H Calcium 8.7 Magnesium Total Bilirubin 1.2 H AST 25 ALT 42 Alkaline Phosphatase 65 Total Creatine Kinase Troponin I NT-Pro-B Natriuret Pep Total Protein 5.9 L D Albumin 2.6 L Globulin 3.3 Albumin/Globulin Ratio 0.8 L Procalcitonin Nasal Screen MRSA (PCR) COVID-19 Eval Order SARS-CoV-2 (PCR) Diagnostic Findings 1. Biventricular ICD 08/18/2013 [facility]. 2. FELIX 11/03/2020 [facility]: (the entire study is not available for review). Reported severe left atrial dilation. Moderate right atrial dilation. Moderate to severe MR. Mild to moderate TR. 3. VT ablation 11/03/2020 [facility]. 4. Echo 12/19/2020: Mildly dilated LV with severely reduced systolic function. Estimated EF 30%. Global hypokinesis with severe hypokinesis to akinesis of the inferior and inferolateral wall segments. Moderate LVH. Mildly dilated RV with moderately reduced systolic function. Severe biatrial dilation. Mild AI. Moderate MR. Mild to moderate TR. RVSP 33. 5. 10/31/20 Cardiac MRI: Severe LV systolic dysfunction, EF 27%. Most prominent area of delayed enhancement is sub-epicardial in the basal per-annular lateral and inferolateral cuellar. Mid-myocardial delayed enhancement in the basal to mid septum and at the anterior and inferior RV insertion points. Severe dilated nonischemic cardiomyopathy. Zara-annular distribution not typical for sarcoidosis. Normal RV size with severe systolic dysfunction (RVEF 22%). Severe biatrial enlargement. Restricted mitral valve leaflet with secondary mitral regurgitation. Chest x-ray obtained at the time of admission revealed moderate pulmonary edema with possibly a superimposed pneumonia. PG Care Time/CCT Total # of Minutes Spent Total Time Spent with Patient: Total time spent is greater than 50% in coordination of care (as documented) at patient's floor/unit and/or counseling patient: Coding Level of Care Code 14385 Inpt Consult Level 4 Diagnoses CHF exacerbation I50.9 Heart failure type: unspecified Atrial fibrillation, permanent I48.21 ICD (implantable cardioverter-defibrillator), biventricular, in situ Z95.810 Nonischemic cardiomyopathy I42.8 Paroxysmal ventricular tachycardia I47.2 Mitral regurgitation I34.0 (1) CHF exacerbation Heart failure type: unspecified Qualified Code(s): I50.9 - Heart failure, unspecified
[2021-02-20] MEDS: DOPamine / D5W 400 MG/250 ML BAG IV SCH (17:19)
--- NOTE | 2021-02-20 17:20 | Nephrology Consultation ---
Date of Consultation February 20, 2021 Assessment & Plan (1) REBECCA (acute kidney injury): Clinical presentation consistent with acute cardiorenal syndrome. Dopamine infusion started. Continue furosemide or another loop diuretic to encourage negative fluid balance. UA bland. US of the kidneys pending. Non-oliguric. Electrolytes acceptable. There is no emergent indication for dialysis. Potential future indications discussed in detail. Medications are appropriately dosed for kidney function. I agree with discontinuing rivaroxaban in favor of Warfarin or apixaban. Document strict I/O's. Encouraged negative fluid balance. Repeat metabolic profile tomorrow AM. (2) CKD (chronic kidney disease) stage 3, GFR 30-59 ml/min: CKD III-IV. Baseline creatinine was 1.88 mg/dL in December with noted recent progression. Goals of care reviewed. I suspect Ty may benefit from incremental start of peritoneal dialysis in the future to help with managent of his volume status but there is no emergent indication at this time. (3) CHF exacerbation: Cardiology consultation reviewed. Dopamine + loop diuretics are being provided. Follow up with heart failure clinic at [facility] scheduled for later this month. History of Present Illness Reason for Consultation: REBECCA/CKD Requesting Physician: Cade Grijalva MD Attending Physician: Cade Grijalva MD History of Present Illness Mr. Ty Lewis was seen and evaluated in the ICU earlier today. Records from [facility] and [facility] were reviewed. I discussed the patient's history with Liliam Pedersen PA-C (cardiology) this morning. Ty is a 60-year-old male who was initially diagnosed with NICMO at the age of 17. 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 Rodriguez. 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 He has permanent atrial fibrillation and is now s/p BiV pacer/AICD . VT ablation performed in the past for recurrent Vtach. Ty has underlying CKD with a baseline creatinine of 1.88 mg/dL in December. In January, he was admitted to [facility] with decompensated CHF and REBECCA. he was discharged on February 10 with a serum creatinine of 2.32 mg/dL. Unfortunately, Ty continues to struggle with progressive decline in functional status and activity tolerance. He is struggling to climb stairs in his home due to weakness. He fatigues quickly with basic activity and is starting to experience soreness throughout his muscles. He was hoping to see more improvement following his recent hospitalization. He has been trying to keep himself well diuresed at home but has seen his weight continue to rise despite 50 mg of Torsemide daily. He avoids taking the medication twice daily due to urinary frequency and difficulty making it to the toilet. He denies urinary complaints otherwise. He denies any chest pain or palpitations. His AICD has not recently fired that he is aware of. UA did not demonstrate any protein. 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 He was feeling slightly better this AM s/p 40 mg IV furosemide yesterday evening. Allergies Allergy/AdvReac Type Severity Reaction Status Date / Time No Known Allergies Allergy Verified 02/19/21 21:57 Home Medications Medication Instructions Recorded Confirmed Type clonazepam 1 mg tablet (Klonopin) 1.5 mg PO HS 03/07/18 02/19/21 History multivitamin 1 tab PO BID tab 01/08/19 02/19/21 History zolpidem 10 mg tablet (Ambien) 10 mg PO HS 05/07/19 02/19/21 History rivaroxaban 20 mg tablet 20 mg PO HS 04/09/20 02/19/21 History amiodarone 200 mg tablet 200 mg PO BID #180 tab 11/16/20 02/19/21 Rx carvedilol 25 mg tablet 12.5 mg PO BID tab 11/16/20 02/19/21 History cholecalciferol (vitamin D3) 25 50 mcg PO DAILY cap 11/16/20 02/19/21 History mcg (1,000 unit) capsule gabapentin 100 mg capsule See Rx Instructions .ROUTE 11/16/20 02/19/21 History .COMPLEX cap albuterol sulfate 90 mcg/actuation 1 puff INHALATION QID PRN 12/18/20 02/19/21 History aerosol inhaler levothyroxine 112 mcg tablet 112 mcg PO QAM #30 tab 01/25/21 02/19/21 Rx torsemide 10 mg tablet 10 mg PO DAILY 02/19/21 02/19/21 History Patient History Medical History Anticoagulant long-term use Anxiety Atrial fibrillation since 17 yrs old; on xarelto follows with Dr. Morton Chronic systolic (congestive) heart failure CKD (chronic kidney disease) stage 3, GFR 30-59 ml/min Diverticulosis Elevated prolactin level Former smoker Hypothyroidism ICD (implantable cardioverter-defibrillator) in place 2013 @ [facility]--medtronic ICD (implantable cardioverter-defibrillator), biventricular, in situ Kidney stones Marijuana use Mitral regurgitation Nonischemic cardiomyopathy On amiodarone therapy On anticoagulant therapy xarelto Paroxysmal ventricular tachycardia Pituitary abnormality Thyroid nodule V tach Surgical History History of appendectomy History of cardiac cath 1977--no stent History of colonoscopy History of tonsillectomy History of tooth extraction wisdom teeth S/P ablation of ventricular arrhythmia S/P appendectomy Family History Family/Other Family hx of colon cancer maternal uncle Brother A-fib Cardiomyopathy Sudden cardiac arrest Father Sudden Grandfather (Paternal) No problems noted. Mother Cancer Social History Smoking Status: Former smoker Tobacco Type: Cigarettes Cigarettes Per Day: 7; Smoking End Date: ; Second Hand Exposure: No; Hx Alcohol Use: No Hx Substance Use: No Preferred Language: German Communication Ability: Effective Hearings Reporter Required: No Beliefs That Will Affect Care: None marital status: Current Living Situation: Spouse Other Information That Helps Us Care for You: No Feels Safe at Home: Yes Safety Concerns: Feels Safe At This Time Assistive Devices: None Review of Systems Review of Systems: All systems reviewed & are unremarkable except as noted in HPI & below Physical Exam Constitutional: well developed; no acute distress Eyes: + anicteric sclerae; no corneal abnormality ENMT: Mouth: no oral mucosal abnormality and oral mucous membranes not dry Neck: normal visual inspection and trachea midline Respiratory: normal respiratory effort Auscultation: lungs clear to auscultation bilaterally and + rales (few scattered rales in the left base) Cardiovascular: Rate/Rhythm: regular rate Heart Sounds: normal S1 and normal S2 Vessels: + JVD Extremities: + edema Musculoskeletal: Extremities: no cyanosis and no clubbing Skin: normal turgor; no lesions Neurologic: Motor/Sensory: no tremor and no asterixis Psychiatric: Orientation: alert and oriented x 3 Results & Data ([facility]) Vital Signs (Past 12 Hours) Vital Signs Temp Pulse Resp BP Pulse Ox 02/20/21 12:21 36.7 C 70 22 85/66 L 99 02/20/21 09:00 72 17 97/69 L 98 02/20/21 08:12 36.7 C 73 24 88/69 L 98 02/20/21 07:00 82 19 95 Laboratory Results Laboratory Results - last 24 hr 02/19/21 02/19/21 02/19/21 21:36 21:36 21:36 WBC 10.02 RBC 4.20 L Hgb 13.0 L Hct 39.1 L MCV 93.1 MCH 31.0 MCHC 33.2 RDW Std Deviation 50.4 H RDW Coeff of Mikaela 14.9 H Plt Count 255 MPV 10.3 Immature Gran % (Auto) 0.4 Neut % (Auto) 82.3 Lymph % (Auto) 6.6 [place] % (Auto) 9.6 Eos % (Auto) 0.9 Baso % (Auto) 0.2 Neut # (Auto) 8.25 H Lymph # (Auto) 0.66 L [place] # (Auto) 0.96 H Eos # (Auto) 0.09 Baso # (Auto) 0.02 Immature Gran # (Auto) 0.04 H PT INR APTT PTT Ratio VBG pH VBG pCO2 VBG pO2 VBG HCO3 VBG O2 Saturation VBG Base Excess Barometric Pressure Sodium 136 Potassium 3.7 Chloride 99 Carbon Dioxide 24 Anion Gap 13.0 H BUN 58 H Creatinine 3.55 H Est Cr Clr Drug Dosing Not Reportable Est GFR ( Amer) 20.1 Est GFR (Non-Af Amer) 17.4 BUN/Creatinine Ratio 16.5 Glucose 121 H Calcium 9.3 Magnesium 2.5 H Total Bilirubin 1.3 H AST 29 ALT 50 Alkaline Phosphatase 85 Total Creatine Kinase 33 L Troponin I < 0.015 NT-Pro-B Natriuret Pep 47389 H Total Protein 7.7 Albumin 3.3 L Globulin 4.4 H Albumin/Globulin Ratio 0.8 L Procalcitonin 0.08 Nasal Screen MRSA (PCR) COVID-19 Eval Order SARS-CoV-2 (PCR) 02/19/21 02/19/21 02/19/21 22:29 22:30 Unknown WBC RBC Hgb Hct MCV MCH MCHC RDW Std Deviation RDW Coeff of Mikaela Plt Count MPV Immature Gran % (Auto) Neut % (Auto) Lymph % (Auto) [place] % (Auto) Eos % (Auto) Baso % (Auto) Neut # (Auto) Lymph # (Auto) [place] # (Auto) Eos # (Auto) Baso # (Auto) Immature Gran # (Auto) PT 19.0 H INR 2.0 H APTT PTT Ratio VBG pH 7.42 H VBG pCO2 40 VBG pO2 21 VBG HCO3 25 VBG O2 Saturation < 60.0 VBG Base Excess 0.3 Barometric Pressure 730.2 Sodium Potassium Chloride Carbon Dioxide Anion Gap BUN Creatinine Est Cr Clr Drug Dosing Est GFR ( Amer) Est GFR (Non-Af Amer) BUN/Creatinine Ratio Glucose Calcium Magnesium Total Bilirubin AST ALT Alkaline Phosphatase Total Creatine Kinase Troponin I NT-Pro-B Natriuret Pep Total Protein Albumin Globulin Albumin/Globulin Ratio Procalcitonin Nasal Screen MRSA (PCR) COVID-19 Eval Order Covid19 at [facility] SARS-CoV-2 (PCR) 02/19/21 02/20/21 02/20/21 Unknown 01:15 04:42 WBC 6.59 RBC 3.37 L Hgb 10.4 L Hct 30.8 L MCV 91.4 MCH 30.9 MCHC 33.8 RDW Std Deviation 49.0 H RDW Coeff of Mikaela 14.7 H Plt Count 204 MPV 9.2 Immature Gran % (Auto) Neut % (Auto) Lymph % (Auto) [place] % (Auto) Eos % (Auto) Baso % (Auto) Neut # (Auto) Lymph # (Auto) [place] # (Auto) Eos # (Auto) Baso # (Auto) Immature Gran # (Auto) PT INR APTT PTT Ratio VBG pH VBG pCO2 VBG pO2 VBG HCO3 VBG O2 Saturation VBG Base Excess Barometric Pressure Sodium Potassium Chloride Carbon Dioxide Anion Gap BUN Creatinine Est Cr Clr Drug Dosing Est GFR ( Amer) Est GFR (Non-Af Amer) BUN/Creatinine Ratio Glucose Calcium Magnesium Total Bilirubin AST ALT Alkaline Phosphatase Total Creatine Kinase Troponin I NT-Pro-B Natriuret Pep Total Protein Albumin Globulin Albumin/Globulin Ratio Procalcitonin Nasal Screen MRSA (PCR) Negative COVID-19 Eval Order SARS-CoV-2 (PCR) NEGATIVE 02/20/21 02/20/21 02/20/21 04:42 04:42 11:48 WBC RBC Hgb Hct MCV MCH MCHC RDW Std Deviation RDW Coeff of Mikaela Plt Count MPV Immature Gran % (Auto) Neut % (Auto) Lymph % (Auto) [place] % (Auto) Eos % (Auto) Baso % (Auto) Neut # (Auto) Lymph # (Auto) [place] # (Auto) Eos # (Auto) Baso # (Auto) Immature Gran # (Auto) PT INR APTT 47.0 H* 71.4 H* PTT Ratio 1.8 2.7 VBG pH VBG pCO2 VBG pO2 VBG HCO3 VBG O2 Saturation VBG Base Excess Barometric Pressure Sodium 134 L Potassium 3.4 L Chloride 105 Carbon Dioxide 26 Anion Gap 3.0 BUN 62 H Creatinine 3.43 H Est Cr Clr Drug Dosing 31.6 Est GFR ( Amer) 21.0 Est GFR (Non-Af Amer) 18.1 BUN/Creatinine Ratio 18.0 Glucose 112 H Calcium 8.7 Magnesium Total Bilirubin 1.2 H AST 25 ALT 42 Alkaline Phosphatase 65 Total Creatine Kinase Troponin I NT-Pro-B Natriuret Pep Total Protein 5.9 L D Albumin 2.6 L Globulin 3.3 Albumin/Globulin Ratio 0.8 L Procalcitonin Nasal Screen MRSA (PCR) COVID-19 Eval Order SARS-CoV-2 (PCR) Diagnostic Findings XR chest 1V portable TECHNIQUE: Single frontal radiograph of the chest was obtained. Comparison: Comparison is made to chest one view 12/18/2020 FINDINGS: Stable appearance of pacemaker defibrillator. The cardiomediastinal silhouette is stable. There is prominence and cephalization of the vasculature with Maria [place] Carmen B lines seen. Questionable airspace opacities in the right lower lung. No evidence of pleural effusion or pneumothorax. IMPRESSION: Moderate pulmonary edema with possible superimposed atelectasis, aspiration, and/or pneumonia. PG Care Time/CCT Total # of Minutes Spent Total Time Spent with Patient: Total time spent is greater than 50% in coordination of care (as documented) at patient's floor/unit and/or counseling patient: Coding Level of Care Code 93716 Inpt Consult Level 4 Diagnoses REBECCA (acute kidney injury) N17.9 CKD (chronic kidney disease) stage 3, GFR 30-59 ml/min N18.30 CHF exacerbation I50.9 Heart failure type: unspecified (1) CHF exacerbation Heart failure type: unspecified Qualified Code(s): I50.9 - Heart failure, unspecified
[2021-02-20] MEDS ORDERED: BUMETANIDE 2 MG in SYRINGE 0 ML IV ONE (19:26)
[2021-02-20 19:47] LABS: Partial Thromboplastin Ratio 1.9
[2021-02-20] MEDS: clonazePAM 0.5 MG TAB PO SCH (20:19)
[2021-02-20] MEDS: GABAPENTIN 400 MG CAP PO SCH (20:21)
[2021-02-20] MEDS: ZOLPIDEM TARTRATE 10 MG TAB PO SCH (20:22)
[2021-02-20 20:37] LABS: Partial Thromboplastin Time 50.9 Seconds (21.0-31.0)
[2021-02-20] MEDS ORDERED: RIVAROXABAN 20 MG TAB PO SCH (21:00)
[2021-02-21] MEDS: HEPARIN SODIUM/DEXTROSE 25,000 UNITS/500 ML BAG IV SCH (04:03)
[2021-02-21 05:20] LABS: Basophils # (auto) 0.03 K/uL (0-0.2); Basophils % (auto) 0.4 %; Eosinophils # (auto) 0.13 K/uL (0-0.5); Eosinophils % (auto) 1.9 %; Hematocrit (blood only) 33.7 % (42-52); Hemoglobin 11.1 g/dL (14.0-18.0); Immature Granulocytes # (auto) 0.03 K/uL (0.00-0.02); Immature Granulocytes % (auto) 0.4 %; Lymphocytes # (auto) 0.79 K/uL (1.2-3.4); Lymphocytes % (auto) 11.4 %; Mean Corpuscular Hemoglobin 30.5 pg (25-34); Mean Corpuscular Hgb Conc 32.9 g/dL (32-36); Mean Corpuscular Volume 92.6 fL (80-100); Mean Platelet Volume 9.6 fL (7.4-10.4); Monocytes # (auto) 0.79 K/uL (0.11-0.59); Monocytes % (auto) 11.4 %; Neutrophils # (auto) 5.14 K/uL (1.4-6.5); Neutrophils % (auto) 74.5 %; Platelet Count 230 K/uL (130-400); RDW Coefficient of Variation 14.9 % (11.5-14.5); RDW Standard Deviation 50.2 fL (36.4-46.3); Red Blood Count 3.64 M/uL (4.7-6.1); White Blood Count 6.91 K/uL (4.8-10.8)
[2021-02-21 05:39] LABS: Partial Thromboplastin Ratio 1.9
[2021-02-21] MEDS: LEVOTHYROXINE SODIUM 112 MCG TABLET PO SCH (05:44)
[2021-02-21 06:14] LABS: Albumin Globulin Ratio 0.8 (0.9-2); Albumin Level 2.8 gm/dl (3.4-5.0); BUN Creatinine Ratio 18.3 (10-20); Bilirubin,Total 0.9 mg/dl (0.2-1); Creatinine Clr Calc Pharmacy 35.3 ml/min; Est GFR (Non-African American) 20.7 ml/min; Globulin 3.7 gm/dl (2.5-4.0); Magnesium 2.1 mg/dl (1.8-2.4); Potassium 2.9 mmol/L (3.5-5.1); Total Protein 6.5 gm/dl (6.4-8.2)
[2021-02-21 06:17] LABS: Partial Thromboplastin Time 49.8 Seconds (21.0-31.0)
--- NOTE | 2021-02-21 08:00 | Ultrasound Report ---
RENAL ULTRASOUND HISTORY: Acute kidney injury. COMPARISON: Abdomen and pelvis CT 04/08/2018. FINDINGS: Right kidney: 12.7 cm. A 2 cm upper pole cyst. No hydronephrosis. Normal corticomedullary differentia tion and cortical thickness. Left kidney: 12.7 cm. No well visualized due to the overlapping bowel and limited windows. Specifical ly, the left renal cyst within the upper pole on the prior CT examination is obscured. No hydronephro sis. Normal corticomedullary differentiation and cortical thickness. Bladder: No bladder wall thickening. The bilateral ureteral jets were identified. Miscellaneous: Small right pleural effusion. IMPRESSION: 1. No hydronephrosis. 2. The left kidney is partially obscured by overlapping bowel. 3. Normal bladder. 4. Small right pleural effusion. ACT 112: Negative or not required by law. Electronically signed by: Ander Figueroa M.D. 02/21/2021 7:59 AM
[2021-02-21] MEDS: POTASSIUM CHLORIDE / WTR 10 MEQ/100 ML PLCT IV SCH ×2 (08:05→10:08)
[2021-02-21] MEDS: CHOLECALCIFEROL 1,000 UNITS 25 MCG TAB PO SCH (08:09)
[2021-02-21] MEDS: GABAPENTIN 100 MG CAP PO SCH ×2 (08:09→13:15)
[2021-02-21] MEDS: carvediloL 12.5 MG TAB PO SCH ×2 (08:10→21:04)
[2021-02-21] MEDS: MULTIVITAMIN TAB PO SCH (08:10)
[2021-02-21] MEDS: AMIODARONE 200 MG TAB PO SCH ×2 (08:10→21:06)
[2021-02-21] MEDS ORDERED: POTASSIUM CHLORIDE CRTAB 20 MEQ TABCR PO STA ×2 (08:44→08:45)
--- NOTE | 2021-02-21 10:06 | Nephrology Progress Note ---
Date of Service February 21, 2021 Assessment & Plan (1) REBECCA (acute kidney injury): Plan: Clinical presentation consistent with acute cardiorenal syndrome. Remains on Dopamine gtt. Diuretics to encourage negative fluid balance. UA bland. US reviewed this AM - no obstruction. Non-oliguric. Creatinine slightly improved in past 24 hours. Electrolytes acceptable. There is no emergent indication for dialysis. Potential future indications discussed in detail. Medications are appropriately dosed for kidney function. Document strict I/O's. Encouraged negative fluid balance. Repeat metabolic profile tomorrow this afternoon following potassium replacement for hypokalemia. (2) CKD (chronic kidney disease) stage 3, GFR 30-59 ml/min: Plan: CKD III-IV. Baseline creatinine was 1.88 mg/dL in December with noted recent progression. (3) CHF exacerbation: Plan: Cardiology consultation reviewed. Dopamine + loop diuretics are being provided. I discussed the plan of care with Dr. Morton this AM. Admission and Anticipated Discharge Date Admission Date: February 20, 2021 Subjective No acute events overnight. Mr. Lewis feels reasonably well this morning but reports some anxiety regarding his overall health. Good urine output. No chest pain. Review of Systems Review of Systems: All systems reviewed & are unremarkable except as noted in HPI & below Physical Exam Constitutional: well developed; no acute distress Eyes: + anicteric sclerae; no corneal abnormality ENMT: Mouth: no oral mucosal abnormality and oral mucous membranes not dry Neck: normal visual inspection and trachea midline Respiratory: normal respiratory effort Auscultation: lungs clear to auscultation bilaterally and + rales (few scattered rales in the left base) Cardiovascular: Rate/Rhythm: regular rate Heart Sounds: normal S1, normal S2 and + murmur Vessels: + JVD Extremities: + edema Musculoskeletal: Extremities: no cyanosis and no clubbing Skin: normal turgor; no lesions Neurologic: Motor/Sensory: no tremor and no asterixis Psychiatric: Orientation: alert and oriented x 3 Results & Data ([facility]) Vital Signs (Past 12 Hours) Vital Signs Temp Pulse Resp BP Pulse Ox 02/21/21 08:05 36.5 C 76 23 103/74 94 02/21/21 04:04 36.9 C 78 21 91/59 L 96 02/20/21 23:25 37.0 C 70 23 102/65 91 Laboratory Results Laboratory Results - last 24 hr 02/20/21 02/20/21 02/21/21 11:48 19:00 04:56 WBC 6.91 RBC 3.64 L Hgb 11.1 L Hct 33.7 L MCV 92.6 MCH 30.5 MCHC 32.9 RDW Std Deviation 50.2 H RDW Coeff of Mikaela 14.9 H Plt Count 230 MPV 9.6 Immature Gran % (Auto) 0.4 Neut % (Auto) 74.5 Lymph % (Auto) 11.4 [place] % (Auto) 11.4 Eos % (Auto) 1.9 Baso % (Auto) 0.4 Neut # (Auto) 5.14 Lymph # (Auto) 0.79 L [place] # (Auto) 0.79 H Eos # (Auto) 0.13 Baso # (Auto) 0.03 Immature Gran # (Auto) 0.03 H APTT 71.4 H* 50.9 H* PTT Ratio 2.7 1.9 Sodium Potassium Chloride Carbon Dioxide Anion Gap BUN Creatinine Est Cr Clr Drug Dosing Est GFR ( Amer) Est GFR (Non-Af Amer) BUN/Creatinine Ratio Glucose Calcium Phosphorus Magnesium Total Bilirubin AST ALT Alkaline Phosphatase Total Protein Albumin Globulin Albumin/Globulin Ratio 02/21/21 02/21/21 04:56 04:56 WBC RBC Hgb Hct MCV MCH MCHC RDW Std Deviation RDW Coeff of Mikaela Plt Count MPV Immature Gran % (Auto) Neut % (Auto) Lymph % (Auto) [place] % (Auto) Eos % (Auto) Baso % (Auto) Neut # (Auto) Lymph # (Auto) [place] # (Auto) Eos # (Auto) Baso # (Auto) Immature Gran # (Auto) APTT 49.8 H* PTT Ratio 1.9 Sodium 141 D Potassium 2.9 L Chloride 104 Carbon Dioxide 28 Anion Gap 9.0 BUN 56 H Creatinine 3.07 H D Est Cr Clr Drug Dosing 35.3 Est GFR ( Amer) 24.0 Est GFR (Non-Af Amer) 20.7 BUN/Creatinine Ratio 18.3 Glucose 96 Calcium 9.0 Phosphorus 4.0 Magnesium 2.1 Total Bilirubin 0.9 AST 23 ALT 46 Alkaline Phosphatase 72 Total Protein 6.5 Albumin 2.8 L Globulin 3.7 Albumin/Globulin Ratio 0.8 L PG Care Time/CCT Total # of Minutes Spent Total Time Spent with Patient: Total time spent is greater than 50% in coordination of care (as documented) at patient's floor/unit and/or counseling patient: Coding Level of Care Code 55570 Subseq Hosp Care Lvl 3 Diagnoses REBECCA (acute kidney injury) N17.9 CKD (chronic kidney disease) stage 3, GFR 30-59 ml/min N18.30 CHF exacerbation I50.9 Heart failure type: unspecified (1) CHF exacerbation Heart failure type: unspecified Qualified Code(s): I50.9 - Heart failure, unspecified
--- NOTE | 2021-02-21 10:25 | Billing Data ---
Date of Service February 21, 2021 Coding Level of Care Code 06183 Initial Inpt Care Lvl 3
[2021-02-21] MEDS ORDERED: BUMETANIDE 2 MG in SYRINGE 0 ML IV ONE (10:30)
--- NOTE | 2021-02-21 10:53 | Palliative Care Consultation ---
Date of Consultation February 21, 2021 Assessment & Plan (1) Palliative care encounter: Mr. Lewis is a 60 year old male who presented to the [facility] with increased shortness of breath and worsening renal failure. A renal ultrasound was performed here and bilateral cysts presented, but no obstruction. He has been evaluated by Nephrology while here in the hospital for management of his acute on chronic strict fluid management. He has, unfortunately, been navigating his cardiac journey since he has been 17 years old. 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 He has been followed at numerous facilities and outpatient silver for various complex heart conditions, between locations in [place], [place], and [facility]. This patient follows Liliam Pedersen in the outpatient CHF clinic. Palliative Medicine was consulted to discuss overall goals of care. I met with Mr. Lewis in room 107 in the ICU. He was sitting in his bed, with the blinds drawn and lights off. He was in no apparent distress. He was pleasant to talk with but stated he "doesn't like to see the outside if its a good day when he's in the hospital". We talked for 45 minutes about his lengthy chronic disease journey. 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 He discussed that over the past 2 years he has noticed a general decline in his functional capacity. He mentioned that he used to be able to walk two miles daily, but each year and currently he can only tolerate and sustain 0.5 miles which is a frustrating factor to him. He does recognize that overall, he is declining and is not sure which way to turn. He mentioned that a heart transplant was in discussion, but now he is not sure if that is a route he even wants to investigate. He said his biggest concern right now is that he does not want to be a burden to his , Linette, who has taken his disease process hard, at times. They do not have children, but have a chihuahua named 'Raine'. He mentioned his lack of strength has made him sad, but he feels that overall his spirits are appropriate and does not feel depressed or anxious about him dying. He did become tearful at one point in our conversation. We discussed his code status and he said that he would not want to be on a ventilator and would like to discuss having his AICD altered that he would not receive more than two or three defibrillation shocks. I did talk with Cardiology who said this is a setting that can be altered through [employer]. He is now a DNR/DNI. He is on a Dopamine gtt at 2.5mcg/kg/hr and this is being weaned as tolerated. For now, we finished the conversation with him planning to hear what [facility] states regarding transplant options as he feels this will be helpful to him and his . If transplant is not an option, he would like to consider hospice support at home. He mentioned a few times during our conversation that if he had limited time, he would want it to be spent at home instead of in and out of the hospital and going to appointments. We discussed Palliative Medicine following as an outpatient as a bridge to continue conversation regarding his overall goals of care. I did call his , Linette, at [phone] but was unable to reach her. All of alfonzo above discussed with the hospitalist resident team; including Dr. Grijalva and Dr. Lane, along with Liliam Pedersen and Dr. Morton. Palliative Medicine will follow. (2) Cardiomyopathy as manifestation of underlying disease: (3) Shortness of breath: (4) ICD (implantable cardioverter-defibrillator), biventricular, in situ: History of Present Illness Reason for Consultation: Goals of care Requesting Physician: Dr. Gillis Attending Physician: Cade Grijalva MD History of Present Illness Mr. Lewis is a 60 year old male who presented to the [facility] with increased shortness of breath and worsening renal failure. A renal ultrasound was performed here and bilateral cysts presented, but no obstruction. He has been evaluated by Nephrology while here in the hospital for management of his acute on chronic strict fluid management. He has, unfortunately, been navigating his cardiac journey since he has been 17 years old. 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 He has been followed at numerous facilities and outpatient silver for various complex heart conditions, between locations in [place], [place], and [facility]. This patient follows Liliam Pedersen in the outpatient CHF clinic. Palliative Medicine was consulted to discuss overall goals of care. Please see A/P for further details. Thanks for involving Palliative Medicine with this luis, yet unfortunate, patient. Allergies Allergy/AdvReac Type Severity Reaction Status Date / Time No Known Allergies Allergy Verified 02/19/21 21:57 Home Medications Medication Instructions Recorded Confirmed Type clonazepam 1 mg tablet (Klonopin) 1.5 mg PO HS 03/07/18 02/19/21 History multivitamin 1 tab PO BID tab 01/08/19 02/19/21 History zolpidem 10 mg tablet (Ambien) 10 mg PO HS 05/07/19 02/19/21 History rivaroxaban 20 mg tablet 20 mg PO HS 04/09/20 02/19/21 History amiodarone 200 mg tablet 200 mg PO BID #180 tab 11/16/20 02/19/21 Rx carvedilol 25 mg tablet 12.5 mg PO BID tab 11/16/20 02/19/21 History cholecalciferol (vitamin D3) 25 50 mcg PO DAILY cap 11/16/20 02/19/21 History mcg (1,000 unit) capsule gabapentin 100 mg capsule See Rx Instructions .ROUTE 11/16/20 02/19/21 History .COMPLEX cap albuterol sulfate 90 mcg/actuation 1 puff INHALATION QID PRN 12/18/20 02/19/21 History aerosol inhaler levothyroxine 112 mcg tablet 112 mcg PO QAM #30 tab 01/25/21 02/19/21 Rx torsemide 10 mg tablet 10 mg PO DAILY 02/19/21 02/19/21 History Patient History Medical History Anticoagulant long-term use Anxiety Atrial fibrillation since 17 yrs old; on xarelto follows with Dr. Morton Cardiomyopathy as manifestation of underlying disease Chronic systolic (congestive) heart failure CKD (chronic kidney disease) stage 3, GFR 30-59 ml/min Diverticulosis Elevated prolactin level Former smoker Hypothyroidism ICD (implantable cardioverter-defibrillator) in place 2013 @ [facility]--[employer] ICD (implantable cardioverter-defibrillator), biventricular, in situ Kidney stones Marijuana use Mitral regurgitation Nonischemic cardiomyopathy On amiodarone therapy On anticoagulant therapy xarelto Palliative care encounter Paroxysmal ventricular tachycardia Pituitary abnormality Shortness of breath Thyroid nodule V tach Surgical History History of appendectomy History of cardiac cath 1977--no stent History of colonoscopy History of tonsillectomy History of tooth extraction wisdom teeth S/P ablation of ventricular arrhythmia S/P appendectomy Family History Family/Other Family hx of colon cancer maternal uncle Brother A-fib Cardiomyopathy Sudden cardiac arrest Father Sudden Grandfather (Paternal) No problems noted. 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: No Beliefs That Will Affect Care: None marital status: Current Living Situation: Spouse Feels Safe at Home: Yes Assistive Devices: None Review of Systems Review of Systems: Marsteller System Assessment Scale: Pain: 0/3 SOB: 1/3 Anxiety: 0/3 Lack of Appetite: 0/3 Palliative Performance Scale: 50% Physical Exam Constitutional: well developed, cooperative and comfortable Respiratory: normal respiratory effort, lungs clear to auscultation Cardiovascular: Rate/Rhythm: regular rate and regular rhythm Heart Sounds: normal S1 and normal S2 (paced rhythm) Extremities: normal capillary refill; no edema Gastrointestinal (Abdomen): Inspection/Auscultation: abdomen normal to inspection Percussion/Palpation: abdomen soft Skin: + pallor Psychiatric: Orientation: alert and oriented x 3 Insight: good insight Judgement: good judgement Results & Data ([facility]) Vital Signs (Past 12 Hours) Vital Signs Temp Pulse Resp BP Pulse Ox 02/21/21 08:05 36.5 C 76 23 103/74 94 02/21/21 04:04 36.9 C 78 21 91/59 L 96 02/20/21 23:25 37.0 C 70 23 102/65 91 PG Care Time/CCT Total # of Minutes Spent Total Time Spent with Patient: Total time spent is greater than 50% in coordination of care (as documented) at patient's floor/unit and/or counseling patient: 100 minutes with >50% of that time spent assessing the patient, discussing goals of care with patient and , and collaborating with IDT Coding Level of Care Code 16685 Initial Inpt Care Lvl 3 Diagnoses Palliative care encounter Z51.5 Cardiomyopathy as manifestation of underlying disease I43 Shortness of breath R06.02 ICD (implantable cardioverter-defibrillator), biventricular, in situ Z95.810 Time Spent (min) 100
--- NOTE | 2021-02-21 12:00 | Hospitalist Progress Note ---
Date of Service February 21, 2021 Assessment & Plan (1) CHF exacerbation: Plan: Ty Lewis is a 60 yo male with PMHx significant for HFrEF 2/2 nonischemic cardiomyopathy (EF 30% in 12/2020), status post AICD, permanent a-fib (on Xarelto), CKD stage III, and hypothyroidism who was admitted to for shortness of breath and acute on chronic worsening renal function. Acute on Chronic HFrEF, Nonischemic Cardiomyopathy EF 30% in 12/2020, increasing dyspnea/orthopnea despite increased diuretic regimen for one month, BNP ~11,000 this admission. - Cardiology consulted - appreciate recs - continue Dopamine gtt to maintain appropriate BP with diuresis - continue with Bumex 2mg IV BID - I suspect this patient may need to be evaluated for possible ventricular assist device vs transplant given hypotension and renal failure, in addition to severe HFrEF. Patient is unsure about wanting further interventions - strict I/Os, daily weights - continue home Carvedilol as BP tolerates REBECCA on CKDIII Cr increasing from 1.8 to low 3s over last several months, Cr 3.55 on admission. Suspect multiple etiologies due to increased diuretic use as well as possible cardiorenal syndrome. - Nephrology consulted - appreciate recs - Patient is non-oliguric, US without obstruction, Cr improving over last 24 hours - No indications for dialysis at this time Goals of Care Patient with likely developing cardiorenal syndrome. Patient likely needs LVAD/heart transplant in the near future; poor prognosis overall. - Palliative care consulted - appreciate recs - code status changed to DNR/DNI - Patient would like to speak with Dr. Morton (regularly Wood Polisher) before making a decision regarding further interventions vs hospice Permanent Atrial Fibrillation - Continue home Amiodarone - transitioned from Heparin gtt to Eliquis 5mg PO BID, per Nephro recs Hypothyroidism - Continue home levothyroxine Anxiety, insomnia, neuropathy - Continue home benzodiazepine and zolpidem dose. - Continue home gabapentin. Code Status: DNR/DNI DVT ppx: Eliquis 5mg PO BID FEN: Heart healthy, low-sodium diet Dispo: PCU w/ tele (2) Acute kidney injury superimposed on CKD: (3) REBECCA (acute kidney injury): (4) Atrial fibrillation, permanent: (5) ICD (implantable cardioverter-defibrillator), biventricular, in situ: (6) Nonischemic cardiomyopathy: (7) Chronic systolic (congestive) heart failure: (8) Dyslipidemia: (9) Esophageal reflux: (10) Peripheral neuropathy: (11) Hypothyroidism: (12) On amiodarone therapy: Admission and Anticipated Discharge Date Admission Date: February 20, 2021 Supervising Physician Co-Signing Physician Notes Attending attestation Pt seen and examined in concert with Dr. Gillis. In agreement with the documented findings as noted in the resident documentation with any exceptions or additions as noted here. Improved shortness of breath following diuresis on Bumex while on IV dopamine. Concerns regarding potential interventions, end of life care and trajectory of disease. On examination, minimal b/l LE edema, S1/S2 nl RRR no MCG, persistent bibasilar decreased breath sounds and slight rales on the right. Acute on chronic hypoxic respiratory failure in the setting of HFrEF - cardiology consult - dopamine with improvement in diuresis, will continue diuresis and monitor I/O/weight. Counseling in regard to potential interventions and their impact, defer specifics to cardiology. AF - convert to apixaban for AC REBECCA on CKDIII - nephrology consult - continue close monitoring and diuresis as tolerated, avoid nephrotoxic interventions where able, renal dose medications Hypokalemia - repleted Palliative care consultation for goals of care and support of patient decision making. Subjective No acute events overnight. Denies SOB on 3L NC. Denies current fever/chills, chest pain, palpitations, cough, N/V, abdominal pain, rash. Review of Systems Review of Systems: All systems reviewed & are unremarkable except as noted in HPI & below Physical Exam Physical Exam: General: A&Ox3. NAD. Cooperative. HEENT: Atraumatic, normocephalic. Pulm: Faint right-sided basilar crackles. No wheezesi. Symmetrical chest rise. No increase work of breathing. No respiratory distress. Cardiac: RRR, -mrg. Radial pulses intact and symmetrical. No LE edema Abdominal: soft, non-tender, non-distended, BS x 4 Skin: warm, dry, no rash Results & Data Results & Data ([facility]) Vital Signs (Past 12 Hours) Vital Signs Temp Pulse Resp BP Pulse Ox 02/21/21 08:05 36.5 C 76 23 103/74 94 02/21/21 04:04 36.9 C 78 21 91/59 L 96 Resident Activity Tracking Resident Involvement: Resident Care Provided Care Provided: Adult Hospital Medicine (1) CHF exacerbation Heart failure type: unspecified Qualified Code(s): I50.9 - Heart failure, unspecified (2) Hypothyroidism Hypothyroidism type: due to medication Qualified Code(s): E03.2 - Hypothyroidism due to medicaments and other exogenous substances (3) Esophageal reflux Esophagitis presence: without esophagitis Qualified Code(s): K21.9 - Gastro- esophageal reflux disease without esophagitis
[2021-02-21] MEDS: APIXABAN 5 MG TABLET PO SCH ×2 (13:15→21:05)
[2021-02-21 15:34] LABS: Albumin Level 2.7 gm/dl (3.4-5.0); BUN Creatinine Ratio 18.3 (10-20); Calcium 8.8 mg/dl (8.5-10.1); Creatinine Clr Calc Pharmacy 35.2 ml/min; Est GFR (African American) 26.7 ml/min; Potassium 3.8 mmol/L (3.5-5.1)
--- NOTE | 2021-02-21 15:36 | Cardiology Progress Note ---
Date of Service February 21, 2021 Assessment & Plan (1) CHF exacerbation: Plan: He is diuresing relatively well, still probably should lose some fluid. I would continue current approach today. (2) Atrial fibrillation, permanent: Plan: Rate controlled by the pacer. Needs long-term anticoagulation, specific agent to be determined. Now on heparin. (3) ICD (implantable cardioverter-defibrillator), biventricular, in situ: Plan: Clinically working well, pacing. (4) Nonischemic cardiomyopathy: Plan: Longstanding and now not on medications for it due to various reasons. We should consider advanced therapy such as heart transplant or LVAD. He has an appointment later this month at [facility] and I advised him to keep it. (5) Mitral regurgitation: Plan: Moderate. Probably not a big contributor to his presentation. Admission and Anticipated Discharge Date Admission Date: February 20, 2021 Subjective He is feeling somewhat better since admission but still not back to normal, still somewhat SOB and fatigued. Physical Exam Physical Exam: Constitutional: Alert, cooperative and in no distress. Pulmonary: Clear to auscultation bilaterally but with decreased breath sounds throughout. Cardiac: Regular rhythm with no murmur, gallop or rub. Abdomen: Soft, nontender with normal bowel sounds. Extremities: Trace bilateral edema. Skin: No rash, ecchymoses or petechiae. Results & Data ([facility]) Vital Signs (Past 12 Hours) Vital Signs Temp Pulse Resp BP Pulse Ox 02/21/21 11:50 36.5 C 70 22 98/66 L 97 02/21/21 08:05 36.5 C 76 23 103/74 94 02/21/21 04:04 36.9 C 78 21 91/59 L 96 Laboratory Results Cardiac Enzymes 02/21/21 Range/Units 04:56 AST 23 (15-37) U/L Coagulation 02/20/21 02/21/21 Range/Units 19:00 04:56 APTT 50.9 H* 49.8 H* (21.0-31.0) Seconds CBC 02/21/21 Range/Units 04:56 WBC 6.91 (4.8-10.8) K/uL RBC 3.64 L (4.7-6.1) M/uL Hgb 11.1 L (14.0-18.0) g/dL Hct 33.7 L (42-52) % Plt Count 230 (130-400) K/uL Neut # (Auto) 5.14 (1.4-6.5) K/uL Lymph # (Auto) 0.79 L (1.2-3.4) K/uL Worth # (Auto) 0.79 H (0.11-0.59) K/uL Eos # (Auto) 0.13 (0-0.5) K/uL Baso # (Auto) 0.03 (0-0.2) K/uL Comprehensive Metabolic Panel 02/21/21 Range/Units 04:56 Sodium 141 D (136-145) mmol/L Potassium 2.9 L (3.5-5.1) mmol/L Chloride 104 (98-107) mmol/L Carbon Dioxide 28 (21-32) mmol/L BUN 56 H (7-18) mg/dl Creatinine 3.07 H D (0.6-1.4) mg/dl Glucose 96 (70-99) mg/dl Calcium 9.0 (8.5-10.1) mg/dl AST 23 (15-37) U/L ALT 46 (12-78) U/L Alkaline Phosphatase 72 (45-117) U/L Total Protein 6.5 (6.4-8.2) gm/dl Albumin 2.8 L (3.4-5.0) gm/dl Intake and Output 02/21/21 02/21/21 02/21/21 06:59 14:59 22:59 Intake Total 355.1 / 1513.033 257.7 / 257.7 Output Total 900 / 3100 700 / 700 Balance -544.9 / -1586.967 -442.3 / -442.3 Intake: IV 155.1 / 453.033 257.7 / 257.7 Heparin Sodium/Dextrose 25,000 155.1 / 453.033 57.7 / 57.7 units In 500 ml @ 900 UNITS/HR 18 mls/hr IV .Q24H FREDY Rx#: [id number] Potassium Chloride / Wtr 10 meq 200 / 200 In 100 ml @ 100 mls/hr IV Q1H FREDY Rx#:[id number] Oral 200 / 1060 Output: Urine 900 / 3100 700 / 700 Other: # Unmeasured Voids 1 Weight 108.4 kg Weight Measurement Method Built in [facility] Diagnostic Findings Telemetry: V pacing throughout PG Care Time/CCT Total # of Minutes Spent Total Time Spent with Patient: Total time spent is greater than 50% in coordi nation of care (as documented) at patient's floor/unit and/or counseling patient: Coding Level of Care Code 84757 Subseq Hosp Care Lvl 3 Diagnoses CHF exacerbation I50.9 Heart failure type: unspecified Atrial fibrillation, permanent I48.21 ICD (implantable cardioverter-defibrillator), biventricular, in situ Z95.810 Nonischemic cardiomyopathy I42.8 Mitral regurgitation I34.0 (1) CHF exacerbation Heart failure type: unspecified Qualified Code(s): I50.9 - Heart failure, unspecified
[2021-02-21 15:37] LABS: Albumin Globulin Ratio 0.7 (0.9-2); Phosphorus 3.6 mg/dl (2.5-4.9); Total Protein 6.7 gm/dl (6.4-8.2)
[2021-02-21] MEDS: DOPamine / D5W 400 MG/250 ML BAG IV SCH ×2 (17:00→20:44)
[2021-02-21] MEDS: BUMETANIDE 2 MG in SYRINGE 0 ML IV SCH (18:01)
[2021-02-21] MEDS: GABAPENTIN 400 MG CAP PO SCH (21:05)
[2021-02-21] MEDS: ZOLPIDEM TARTRATE 10 MG TAB PO SCH (23:51)
[2021-02-21] MEDS: clonazePAM 0.5 MG TAB PO SCH (23:51)
[2021-02-22] MEDS: LEVOTHYROXINE SODIUM 112 MCG TABLET PO SCH (05:37)
[2021-02-22 05:52] LABS: Hematocrit (blood only) 30.8 % (42-52); Hemoglobin 10.1 g/dL (14.0-18.0); Mean Corpuscular Hemoglobin 30.1 pg (25-34); Mean Corpuscular Hgb Conc 32.8 g/dL (32-36); Mean Corpuscular Volume 91.9 fL (80-100); Mean Platelet Volume 9.4 fL (7.4-10.4); Platelet Count 248 K/uL (130-400); RDW Coefficient of Variation 14.8 % (11.5-14.5); RDW Standard Deviation 49.2 fL (36.4-46.3); Red Blood Count 3.35 M/uL (4.7-6.1); White Blood Count 5.71 K/uL (4.8-10.8)
[2021-02-22 06:27] LABS: BUN Creatinine Ratio 20.1 (10-20); Calcium 8.7 mg/dl (8.5-10.1); Creatinine Clr Calc Pharmacy 46.1 ml/min; Est GFR (African American) 36.9 ml/min; Est GFR (Non-African American) 31.8 ml/min; Magnesium 1.9 mg/dl (1.8-2.4); Phosphorus 3.7 mg/dl (2.5-4.9); Potassium 3.1 mmol/L (3.5-5.1)
[2021-02-22] MEDS ORDERED: POTASSIUM CHLORIDE CRTAB 20 MEQ TABCR PO STA (06:36)
[2021-02-22] MEDS: MULTIVITAMIN TAB PO SCH (07:54)
[2021-02-22] MEDS: AMIODARONE 200 MG TAB PO SCH ×2 (07:55→20:42)
[2021-02-22] MEDS: carvediloL 12.5 MG TAB PO SCH ×2 (07:55→20:43)
[2021-02-22] MEDS: APIXABAN 5 MG TABLET PO SCH ×2 (07:55→20:42)
[2021-02-22] MEDS: GABAPENTIN 100 MG CAP PO SCH ×2 (07:55→14:30)
[2021-02-22] MEDS: BUMETANIDE 2 MG in SYRINGE 0 ML IV SCH (07:56)
[2021-02-22] MEDS: CHOLECALCIFEROL 1,000 UNITS 25 MCG TAB PO SCH (07:56)
[2021-02-22] MEDS: POTASSIUM CHLORIDE CRTAB 20 MEQ TABCR PO SCH ×2 (07:56→20:43)
--- NOTE | 2021-02-22 10:24 | Nephrology Progress Note ---
Date of Service February 22, 2021 Assessment & Plan (1) REBECCA (acute kidney injury): Plan: Clinical presentation consistent with acute cardiorenal syndrome. Dopamine gtt now being weaned off. Ty has responded well to Bumex and is interested in trying to switch to PO Bumex. Creatinine approaching baseline. Non-oliguric. Electrolytes acceptable. There is no emergent indication for dialysis. Potential future indications discussed in detail. Medications are appropriately dosed for kidney function. Document strict I/O's. Encouraged negative fluid balance. Repeat metabolic profile tomorrow this afternoon following potassium replacement for hypokalemia. (2) CKD (chronic kidney disease) stage 3, GFR 30-59 ml/min: Plan: CKD III-IV. Baseline creatinine was 1.88 mg/dL in December with noted recent progression. (3) CHF exacerbation: Plan: I discussed the plan of care with cardiology this AM. Admission and Anticipated Discharge Date Admission Date: February 20, 2021 Subjective No acute events overnight. I had a long conversation with Ty this AM. He is processing recent conversations and had a long discussion with Jessica Pedersen PA-C just before I entered his room. His primary goal is to return home. He is interested in discussing potential options with the heart failure team at [facility]. Review of Systems Review of Systems: All systems reviewed & are unremarkable except as noted in HPI & below Physical Exam Constitutional: well developed; no acute distress Eyes: + anicteric sclerae; no corneal abnormality ENMT: Mouth: no oral mucosal abnormality and oral mucous membranes not dry Neck: normal visual inspection and trachea midline Respiratory: normal respiratory effort Auscultation: lungs clear to auscultation bilaterally and + rales (few scattered rales in the left base) Cardiovascular: Rate/Rhythm: regular rate Heart Sounds: normal S1, normal S2 and + murmur Vessels: + JVD Extremities: + edema Musculoskeletal: Extremities: no cyanosis and no clubbing Skin: normal turgor; no lesions Neurologic: Motor/Sensory: no tremor and no asterixis Psychiatric: Orientation: alert and oriented x 3 Results & Data ([facility]) Vital Signs (Past 12 Hours) Vital Signs Temp Pulse Pulse Resp BP BP Pulse Ox 02/22/21 03:47 37.3 C 73 20 96/60 L 92 02/22/21 00:00 71 02/21/21 23:56 37.1 C 82 22 105/65 93 Laboratory Results Laboratory Results - last 24 hr 02/21/21 02/22/21 02/22/21 14:54 05:31 05:31 WBC 5.71 RBC 3.35 L Hgb 10.1 L Hct 30.8 L MCV 91.9 MCH 30.1 MCHC 32.8 RDW Std Deviation 49.2 H RDW Coeff of Mikaela 14.8 H Plt Count 248 MPV 9.4 Sodium 140 140 Potassium 3.8 D 3.1 L D Chloride 104 104 Carbon Dioxide 27 28 Anion Gap 9.0 8.0 BUN 51 H 43 H Creatinine 2.81 H 2.15 H D Est Cr Clr Drug Dosing 35.2 46.1 Est GFR ( Amer) 26.7 36.9 Est GFR (Non-Af Amer) 23.0 31.8 BUN/Creatinine Ratio 18.3 20.1 H Glucose 97 102 H Calcium 8.8 8.7 Phosphorus 3.6 3.7 Magnesium 1.9 Total Bilirubin 1.0 AST 23 ALT 46 Alkaline Phosphatase 77 Total Protein 6.7 Albumin 2.7 L Globulin 4.0 Albumin/Globulin Ratio 0.7 L PG Care Time/CCT Total # of Minutes Spent Total Time Spent with Patient: Total time spent is greater than 50% in coordination of care (as documented) at patient's floor/unit and/or counseling patient: Coding Level of Care Code 80798 Subseq Hosp Care Lvl 3 Diagnoses REBECCA (acute kidney injury) N17.9 CKD (chronic kidney disease) stage 3, GFR 30-59 ml/min N18.30 CHF exacerbation I50.9 Heart failure type: unspecified (1) CHF exacerbation Heart failure type: unspecified Qualified Code(s): I50.9 - Heart failure, unspecified
--- NOTE | 2021-02-22 12:04 | Hospitalist Progress Note ---
Date of Service February 22, 2021 Assessment & Plan (1) CHF exacerbation: Plan: Ty Lewis is a 60 yo male with PMHx significant for HFrEF 2/2 nonischemic cardiomyopathy (EF 30% in 12/2020), status post AICD, permanent a-fib (on Xarelto), CKD stage III, and hypothyroidism who was admitted to [facility] on 02/20 for acute on chronic HFrEF and REBECCA. Acute on Chronic HFrEF, Nonischemic Cardiomyopathy EF 30% in 12/2020, increasing dyspnea/orthopnea despite increased diuretic regimen for one month, BNP ~11,000 this admission. - Cardiology consulted - appreciate recs - continue Dopamine gtt to maintain appropriate BP with diuresis - continue with Bumex 2mg IV BID - strict I/Os, daily weights - continue home Carvedilol as BP tolerates REBECCA on CKDIII, REBECCA resolving Cr increasing from 1.8 to low 3s over last several months, Cr 3.55 on admission. Suspect multiple etiologies due to increased diuretic use as well as possible cardiorenal syndrome. - Cr improved to 2.15 today after several days of diuresis - Nephrology consulted - appreciate recs - Patient is non-oliguric, US without obstruction, Cr improving over last 24 hours - No indications for dialysis at this time - continue Bumex as stated above Goals of Care Patient with likely developing cardiorenal syndrome. Patient likely needs LVAD/heart transplant in the near future; poor prognosis overall. - Palliative care consulted - appreciate recs - code status changed to DNR/DNI - Patient would like to speak with Dr. Morton (regularly Manager Internship) before making a decision regarding further interventions vs hospice Permanent Atrial Fibrillation - Continue home Amiodarone - transitioned from Heparin gtt to Eliquis 5mg PO BID on 02/21, per Nephro recs Hypothyroidism - Continue home levothyroxine Anxiety, insomnia, neuropathy - Continue home benzodiazepine and zolpidem dose. - Continue home gabapentin. Code Status: DNR/DNI DVT ppx: Eliquis 5mg PO BID FEN: Heart healthy, low-sodium diet Dispo: PCU w/ tele (2) Acute kidney injury superimposed on CKD: (3) REBECCA (acute kidney injury): (4) Atrial fibrillation, permanent: (5) ICD (implantable cardioverter-defibrillator), biventricular, in situ: (6) Nonischemic cardiomyopathy: (7) Chronic systolic (congestive) heart failure: (8) Dyslipidemia: (9) Esophageal reflux: (10) Peripheral neuropathy: (11) Hypothyroidism: (12) On amiodarone therapy: Admission and Anticipated Discharge Date Admission Date: February 20, 2021 Supervising Physician Co-Signing Physician Notes Attending attestation Pt seen and examined in concert with Dr. Gillis. In agreement with the documented findings as noted in the resident documentation with any exceptions or additions as noted here. Improved shortness of breath following diuresis on Bumex while on IV dopamine. Concerns regarding potential interventions, end of life care and trajectory of disease. On examination, minimal b/l LE edema, S1/S2 nl RRR no MCG, persistent bibasilar decreased breath sounds and slight rales on the right. Acute on chronic hypoxic respiratory failure in the setting of HFrEF, NICM - cardiology consult - weaning dopamine and transition to PO bumetanide. Close mon itoring for hypotension overnight with restart of dopamine and gentle hydration if possible. Intention is to discharge tomorrow for 1:45p appointment with [facility] cardiothoracic for consideration of transplant vs. transition to palliative focus at that time based on assessment. AF - rate controlled - continue carvedilol, apixaban, amiodarone REBECCA on CKDIII - nephrology consult - nearing baseline of 1.8 - 2, repeat BMP in AM, avoid nephrotoxic interventions where able, renal dose medications Palliative care consultation for goals of care and support of patient decision making. Subjective No acute events overnight. Remains on Dopamine gtt but weaned to room air. Would like to speak with Dr. Morton and Dr. Beauchamp today more about details regardi ng LVAD/cardiac transplant. Denies fever/chills, chest pain, palpitations, SOB, cough, N/V, abdominal pain, rash. Review of Systems Review of Systems: All systems reviewed & are unremarkable except as noted in HPI & below Physical Exam Physical Exam: General: A&Ox3. NAD. Cooperative. HEENT: Atraumatic, normocephalic. Pulm: Faint bibasilar crackles. No wheezes. Symmetrical chest rise. No increase work of breathing. No respiratory distress. Cardiac: RRR, -mrg. Radial pulses intact and symmetrical. No LE edema Abdominal: soft, non-tender, non-distended, BS x 4 Skin: warm, dry, no rash Results & Data Results & Data ([facility]) Vital Signs (Past 12 Hours) Vital Signs Temp Pulse Resp BP Pulse Ox 02/22/21 03:47 37.3 C 73 20 96/60 L 92 Resident Activity Tracking Resident Involvement: Resident Care Provided Care Provided: Adult Hospital Medicine (1) CHF exacerbation Heart failure type: unspecified Qualified Code(s): I50.9 - Heart failure, unspecified (2) Hypothyroidism Hypothyroidism type: due to medication Qualified Code(s): E03.2 - Hypothyroidism due to medicaments and other exogenous substances (3) Esophageal reflux Esophagitis presence: without esophagitis Qualified Code(s): K21.9 - Gastro- esophageal reflux disease without esophagitis
[2021-02-22] MEDS ORDERED: COUGH DROP (SUGAR FREE) LOZ 24 LOZ/1 BOX BUCCAL ONE (13:28)
--- NOTE | 2021-02-22 14:45 | Palliative Care Progress Note ---
Date of Service February 22, 2021 Assessment & Plan (1) Shortness of breath: Plan: Controlled at rest Asked about having O2 and what treatments were available. Discussed maximizing cardiac function as much as possible with use of opioids for symptom relief if needed. Discussed use of O2 for relief of dyspnea and maintaining O2 sat. (2) Palliative care encounter: Plan: I met with Ty and with his on speaker phone. They asked about role of palliative care and options for treatment moving forward. They are considering meeting with transplant team at [place] to discuss possible transplant, though Ty has some reservations about this. They have an appointment which is not until the end of the month but cardiology is working on moving this up. They asked about other options besides transplant. We discussed possible shift of focus to comfort directed care if they did not feel that transplant was a good fit for them. We talked about using opioids and benzodiazepines along with oxygen to relieve dyspnea and discussed having hospice support at home. I answered their questions about what was involved with hospice, the medicare hospice benefit and what medications would be used. They asked about prognosis which I told them would likely be a matter of weeks if they chose comfort approach. Mrs. Lewis was tearful but appreciated the information. After our conversation together, Ty shared with me that he is feeling tired and thinks that he would be more inclined to choose hospice at this point. I encouraged him to consider this and discuss with his and we will support whatever decision he makes. Palliative care will follow. (3) Cardiomyopathy as manifestation of underlying disease: (4) CHF exacerbation: (5) Acute renal failure (ARF): (6) Biventricular heart failure: (7) Atrial fibrillation, permanent: (8) ICD (implantable cardioverter-defibrillator), biventricular, in situ: Admission and Anticipated Discharge Date Admission Date: February 20, 2021 Subjective Complains of dry cough and headache. Reports dyspnea with minimal exertion. Was needing help putting on shoes prior to admission. Review of Systems Review of Systems: [place] Symptom Assessment Score Pain 1/3 Dyspnea 1/3 Fatigue 2/3 Drowsiness 0/3 Palliative Performance Score 40% Physical Exam Constitutional: no acute distress Respiratory: normal respiratory effort; no labored breathing 92% RA Cardiovascular: Rate/Rhythm: regular rate and regular rhythm (paced) remains on pressor Musculoskeletal: moves all extremities, generalized weakness Neurologic: awake; not confused Results & Data ([facility]) Vital Signs (Past 12 Hours) Vital Signs Temp Pulse Resp BP Pulse Ox 02/22/21 12:00 98.8 F 85 18 91/56 L 92 02/22/21 03:47 99.1 F 73 20 96/60 L 92 PG Care Time/CCT Total # of Minutes Spent Total Time Spent: 103 Total Time Spent with Patient: Total time spent is greater than 50% in coordination of care (as documented) at patient's floor/unit and/or counseling patient: symptom management, goals of care, prognosis, hospice, patient and family education and support. Coding Level of Care Code 71608 Subseq Hosp Care Lvl 3 Diagnoses Shortness of breath R06.02 Palliative care encounter Z51.5 Cardiomyopathy as manifestation of underlying disease I43 CHF exacerbation I50.9 Heart failure type: unspecified Acute renal failure (ARF) N17.9 Biventricular heart failure I50.82 Atrial fibrillation, permanent I48.21 ICD (implantable cardioverter-defibrillator), biventricular, in situ Z95.810 Time Spent (min) 103 (1) CHF exacerbation Heart failure type: unspecified Qualified Code(s): I50.9 - Heart failure, unspecified
--- NOTE | 2021-02-22 16:36 | Cardiology Progress Note ---
Date of Service February 22, 2021 Assessment & Plan (1) CHF exacerbation: Plan: He continues to diurese well, at this point he is probably approaching the euhydrated state and I am going to discontinue his dopamine. (2) Atrial fibrillation, permanent: Plan: Rate controlled by the pacer. Needs long-term anticoagulation, specific agent to be determined. Now on heparin. (3) ICD (implantable cardioverter-defibrillator), biventricular, in situ: Plan: Clinically working well, pacing. (4) Nonischemic cardiomyopathy: Plan: Longstanding and now not on medications for it due to various reasons. We should consider advanced therapy such as heart transplant or LVAD. He has an outpatient appointment scheduled for tomorrow afternoon at [place], I believe at 1:45 PM, if he feels well enough and if his can take him I think he should try to keep that appointment. If not we can consider transfer. (5) Mitral regurgitation: Plan: Moderate. Probably not a big contributor to his presentation. Admission and Anticipated Discharge Date Admission Date: February 20, 2021 Subjective Physically he is feeling better today, he remains a little bit pessimistic about his future but is willing to pursue options. He understands that we have little more to offer with medical therapy from our institution. He is not short of breath he is not having chest discomfort. Physical Exam Physical Exam: Constitutional: Alert, cooperative and in no distress. Pulmonary: Clear to auscultation bilaterally but with decreased breath sounds throughout. Cardiac: Regular rhythm with no murmur, gallop or rub. Abdomen: Soft, nontender with normal bowel sounds. Extremities: No edema. Skin: No rash, ecchymoses or petechiae. Results & Data ([facility]) Vital Signs (Past 12 Hours) Vital Signs Temp Pulse Resp BP Pulse Ox 02/22/21 12:00 37.1 C 85 18 91/56 L 92 Laboratory Results CBC 02/22/21 Range/Units 05:31 WBC 5.71 (4.8-10.8) K/uL RBC 3.35 L (4.7-6.1) M/uL Hgb 10.1 L (14.0-18.0) g/dL Hct 30.8 L (42-52) % Plt Count 248 (130-400) K/uL Comprehensive Metabolic Panel 02/22/21 Range/Units 05:31 Sodium 140 (136-145) mmol/L Potassium 3.1 L D (3.5-5.1) mmol/L Chloride 104 (98-107) mmol/L Carbon Dioxide 28 (21-32) mmol/L BUN 43 H (7-18) mg/dl Creatinine 2.15 H D (0.6-1.4) mg/dl Glucose 102 H (70-99) mg/dl Calcium 8.7 (8.5-10.1) mg/dl Intake and Output 02/22/21 02/22/21 02/22/21 06:59 14:59 22:59 Intake Total 186.558 / 1677.300 850 / 850 Output Total 800 / 2300 1600 / 1600 Balance -613.442 / -622.700 -750 / -750 Intake: IV 86.558 / 577.300 DOPamine / D5W 400 mg In 250 ml 86.558 / 319.600 @ 2 MCG/KG/MIN 8.468 mls/hr IV .Q24H [facility] Rx#:[id number] Oral 100 / 1100 850 / 850 Output: Urine 1600 / 1600 Urine Amount (Catheter) 800 / 800 External 800 / 800 Other: Weight 109.1 kg Weight Measurement Method Built in [facility] Patient Weight 02/23/21 06:59 Weight 109.1 kg Diagnostic Findings Telemetry: Atrial fibrillation with ventricular pacing PG Care Time/CCT Total # of Minutes Spent Total Time Spent with Patient: Total time spent is greater than 50% in coordination of care (as documented) at patient's floor/unit and/or counseling patient: Coding Level of Care Code 59343 Subseq Hosp Care Lvl 3 Diagnoses CHF exacerbation I50.9 Heart failure type: unspecified Atrial fibrillation, permanent I48.21 ICD (implantable cardioverter-defibrillator), biventricular, in situ Z95.810 Nonischemic cardiomyopathy I42.8 Mitral regurgitation I34.0 (1) CHF exacerbation Heart failure type: unspecified Qualified Code(s): I50.9 - Heart failure, unspecified
--- NOTE | 2021-02-22 18:02 | XRay Report ---
XR chest 1V portable HISTORY: Shortness of breath. COMPARISON: Chest 02/19/2021. FINDINGS: No pneumothorax. The heart remains enlarged. Is left-sided pacemaker/defibrillator. No pleu ral fusions. There are patchy bilateral airspace opacities with interstitial thickening. This has sli ghtly progressed. IMPRESSION: Interval progression of the patchy bilateral airspace opacities and interstitial thickening. This may represent progressive pulmonary edema. A superimposed viral pneumonia cannot be excluded. ACT 112: Negative or not required by law. Electronically signed by: Ander Figueroa M.D. 02/22/2021 6:00 PM
[2021-02-22] MEDS: GABAPENTIN 400 MG CAP PO SCH (20:41)
[2021-02-22] MEDS: ZOLPIDEM TARTRATE 10 MG TAB PO SCH (23:31)
[2021-02-22] MEDS: clonazePAM 0.5 MG TAB PO SCH (23:31)
[2021-02-23] MEDS: LEVOTHYROXINE SODIUM 112 MCG TABLET PO SCH (04:44)
[2021-02-23 05:20] LABS: Basophils # (auto) 0.02 K/uL (0-0.2); Basophils % (auto) 0.2 %; Hemoglobin 12.4 g/dL (14.0-18.0); Immature Granulocytes # (auto) 0.07 K/uL (0.00-0.02); Immature Granulocytes % (auto) 0.6 %; Lymphocytes # (auto) 0.69 K/uL (1.2-3.4); Lymphocytes % (auto) 5.7 %; Mean Corpuscular Hemoglobin 30.4 pg (25-34); Mean Corpuscular Hgb Conc 32.6 g/dL (32-36); Mean Corpuscular Volume 93.1 fL (80-100); Mean Platelet Volume 10.3 fL (7.4-10.4); Monocytes # (auto) 1.44 K/uL (0.11-0.59); Monocytes % (auto) 11.9 %; Neutrophils # (auto) 9.87 K/uL (1.4-6.5); Neutrophils % (auto) 81.6 %; Nucleated RBC # (auto) 0.02 K/uL (0-0); Nucleated RBC % (auto) 0.2 %; Platelet Count 311 K/uL (130-400); RDW Coefficient of Variation 14.9 % (11.5-14.5); RDW Standard Deviation 50.6 fL (36.4-46.3); Red Blood Count 4.08 M/uL (4.7-6.1); White Blood Count 12.09 K/uL (4.8-10.8)
[2021-02-23 06:05] LABS: BUN Creatinine Ratio 14.9 (10-20); Est GFR (African American) 22.9 ml/min; Est GFR (Non-African American) 19.8 ml/min; Magnesium 1.8 mg/dl (1.8-2.4); Potassium 5.3 mmol/L (3.5-5.1)
[2021-02-23] MEDS: POTASSIUM CHLORIDE CRTAB 20 MEQ TABCR PO SCH (08:38)
[2021-02-23] MEDS: AMIODARONE 200 MG TAB PO SCH (08:39)
[2021-02-23] MEDS: carvediloL 12.5 MG TAB PO SCH ×2 (08:39→08:51)
[2021-02-23] MEDS: GABAPENTIN 100 MG CAP PO SCH (08:39)
[2021-02-23] MEDS: APIXABAN 5 MG TABLET PO SCH (08:39)
[2021-02-23] MEDS: MULTIVITAMIN TAB PO SCH (08:40)
[2021-02-23] MEDS: CHOLECALCIFEROL 1,000 UNITS 25 MCG TAB PO SCH (08:40)
[2021-02-23] MEDS ORDERED: BUMETANIDE 1 MG TAB PO SCH (09:00)
--- NOTE | 2021-02-23 10:12 | Nephrology Progress Note ---
Date of Service February 23, 2021 Assessment & Plan (1) REBECCA (acute kidney injury): Plan: Clinical presentation consistent with acute cardiorenal syndrome. Dopamine gtt weaned off yesterday. Unfortunately, noted decline in kidney function in past 24 hours. Remains non-oliguric but rapid rise in creatinine is disconcerting. Given overall cardiac condition, I do not expect significant therapeutic or palliative benefit to dialysis. TOBACCO STEMMER MACHINE may be considered if goal is to bridge to cardiac transplant. Electrolytes acceptable. Medications are appropriately dosed for kidney function. Document strict I/O's. Encouraged negative fluid balance. Repeat metabolic profile tomorrow this afternoon following potassium replacement for hypokalemia. (2) CKD (chronic kidney disease) stage 3, GFR 30-59 ml/min: Plan: CKD III-IV. Baseline creatinine was 1.88 mg/dL in December with noted recent progression. (3) CHF exacerbation: Plan: I discussed the plan of care with cardiology this AM. Admission and Anticipated Discharge Date Admission Date: February 20, 2021 Gloria Crawford was unresponsive during my initial evaluation this morning. Notably hypotensive. AICD did not deploy. Episode was transient, lasting several minutes, and afterward Ty was awake and answering questions appropriately. His was contacted. She will be meeting with Ty and his care team later this morning. I met with cardiology and the primary team at the bedside. Goals of care reviewed. During my conversation with Ty, he stated that he just wants to go home. He remains very weak and slightly dyspneic at rest. He denies chest pain or palpitations. Review of Systems Review of Systems: All systems reviewed & are unremarkable except as noted in HPI & below Physical Exam Constitutional: well developed and + ill appearing; no acute distress Eyes: + anicteric sclerae; no corneal abnormality ENMT: Mouth: no oral mucosal abnormality and oral mucous membranes not dry Neck: normal visual inspection and trachea midline Respiratory: + tachypneic Auscultation: lungs clear to auscultation bilaterally (anteriorly) Cardiovascular: Rate/Rhythm: regular rate Heart Sounds: normal S1, normal S2 and + murmur Vessels: + JVD Extremities: + edema Musculoskeletal: Extremities: no cyanosis and no clubbing Skin: normal turgor; no lesions Neurologic: Motor/Sensory: no tremor and no asterixis Psychiatric: Orientation: alert, oriented to person and oriented to place Results & Data ([facility]) Vital Signs (Past 12 Hours) Vital Signs Temp Pulse Pulse Resp BP BP Pulse Ox 02/23/21 07:00 36.8 C 78 19 83/62 L 92 02/23/21 04:00 37.0 C 71 19 87/66 L 93 02/22/21 23:20 71 02/22/21 23:15 36.6 C 73 24 83/60 L 94 Laboratory Results Laboratory Results - last 24 hr 02/23/21 02/23/21 05:00 05:00 WBC 12.09 H RBC 4.08 L Hgb 12.4 L Hct 38.0 L MCV 93.1 MCH 30.4 MCHC 32.6 RDW Std Deviation 50.6 H RDW Coeff of Mikaela 14.9 H Plt Count 311 MPV 10.3 Immature Gran % (Auto) 0.6 Neut % (Auto) 81.6 Lymph % (Auto) 5.7 [place] % (Auto) 11.9 Eos % (Auto) 0.0 Baso % (Auto) 0.2 Neut # (Auto) 9.87 H Lymph # (Auto) 0.69 L [place] # (Auto) 1.44 H Eos # (Auto) 0.00 Baso # (Auto) 0.02 Immature Gran # (Auto) 0.07 H Absolute Nucleated RBC 0.02 H Nucleated RBC % (auto) 0.2 Sodium 135 L Potassium 5.3 H D Chloride 103 Carbon Dioxide 24 Anion Gap 8.0 BUN 47 H Creatinine 3.19 H D Est Cr Clr Drug Dosing 31.0 Est GFR ( Amer) 22.9 Est GFR (Non-Af Amer) 19.8 BUN/Creatinine Ratio 14.9 Glucose 119 H Calcium 9.0 Magnesium 1.8 NT-Pro-B Natriuret Pep 17956 H PG Care Time/CCT Total # of Minutes Spent Total Time Spent with Patient: Total time spent is greater than 50% in coordination of care (as documented) at patient's floor/unit and/or counseling patient: Coding Level of Care Code 97656 Subseq Hosp Care Lvl 3 Diagnoses REBECCA (acute kidney injury) N17.9 CKD (chronic kidney disease) stage 3, GFR 30-59 ml/min N18.30 CHF exacerbation I50.9 Heart failure type: unspecified (1) CHF exacerbation Heart failure type: unspecified Qualified Code(s): I50.9 - Heart failure, unspecified
[2021-02-23] MEDS ORDERED: STAT IV Infusion **Titration per Protocol STA (10:14)
[2021-02-23] MEDS ORDERED: DOPamine / D5W 400 MG/250 ML BAG IV SCH (10:15)
--- NOTE | 2021-02-23 10:18 | Palliative Care Progress Note ---
Date of Service February 23, 2021 Assessment & Plan (1) Palliative care encounter: Plan: Discussed with care team including cardiology and hospitalist team. He has expressed desire in the past to pursue further treatment with LVAD or transplant multiple times in the past. Today he is most focused on being able to go home. I asked him what was important about going home and he told me that being with his was his priority. She is at bedside with him. We had a ella discussion about his current condition and that he would likely not survive to go home. We discussed option to pursue comfort directed care here and that his could be with him. I also asked him if he had any remaining doubt about not pursuing treatment at [place] and he nodded yes. We discussed that if there is any doubt, the best course of action would be to go to [place] for further treatment. They are aware that if at any time they feel that they do not want to continue treatment, they have the option to choose a comfort directed approach to his care. They are in agreement with this. I asked Mrs. Lewis if she was comfortable with this decision and she said that she was. Dr. Gillis and Dr. Grijalva notified. (2) Nonischemic cardiomyopathy: Admission and Anticipated Discharge Date Admission Date: February 20, 2021 Subjective Hypotension with increased confusion this morning. Having arrhythmia. He is able to converse but does not fully comprehend how ill he is. Review of Systems Review of Systems: [place] Symptom Assessment Scale Pain 1/3 Dyspnea 2/3 Anxiety 2/3 Drowsiness 1/3 Palliative Performance Score 30% Physical Exam Constitutional: + ill appearing diaphoretic Respiratory: + labored breathing and + uses accessory muscles Cardiovascular: Rate/Rhythm: regular rate and regular rhythm (pacing) Neurologic: + confused (mild, says repeatedly that he wants to go home) Results & Data ([facility]) Vital Signs (Past 12 Hours) Vital Signs Temp Pulse Pulse Resp BP BP Pulse Ox 02/23/21 07:00 98.2 F 78 19 83/62 L 92 02/23/21 04:00 98.6 F 71 19 87/66 L 93 02/22/21 23:20 71 02/22/21 23:15 97.9 F 73 24 83/60 L 94 PG Care Time/CCT Total # of Minutes Spent Total Time Spent: 47 Total Time Spent with Patient: Total time spent is greater than 50% in coordination of care (as documented) at patient's floor/unit and/or counseling patient: goals of care, patient and family education and support, coordination of care Coding Level of Care Code 47712 Subseq Hosp Care Lvl 3 Diagnoses Palliative care encounter Z51.5 Nonischemic cardiomyopathy I42.8
--- NOTE | 2021-02-23 10:52 | Critical Care Progress Note ---
Date of Service February 23, 2021 Assessment & Plan Admission and Anticipated Discharge Date Admission Date: February 20, 2021 Results & Data Results & Data ([facility]) Vital Signs (Past 12 Hours) Vital Signs Temp Pulse Pulse Resp BP BP Pulse Ox 02/23/21 07:00 36.8 C 78 19 83/62 L 92 02/23/21 04:00 37.0 C 71 19 87/66 L 93 02/22/21 23:20 71 02/22/21 23:15 36.6 C 73 24 83/60 L 94
--- NOTE | 2021-02-23 11:10 | Discharge Summary ---
Date of Service February 23, 2021 Admission HPI Per Admitting Provider 60 yo M Hx nonischemic cardiomyopathy with EF of 30% on 12/19/2020, status post AICD, permanent A. fib on chronic Xarelto therapy, CKD stage III, hypothyroidism presented to the ER for 4 to 5 days of worsening shortness of breath and profound generalized weakness. He reports that due to his worsening shortness of breath over the last couple of days he increased his torsemide to 50 mg yesterday without any increase in urine output or improvement in his sensation of shortness of breath. Today when he was still feeling short of breath and his partner had to help him get out of bed and put on his clothes, they came to the hospital for urgent evaluation. Evaluation in the ER revealed worsening creatinine to 3.55 with last check prior to that in [facility] records of 2.77 on 02/16/2021. BNP elevated to 11,279 with last reported level of ~2000 in December. Chest x-ray did not show overt signs of fluid overload. He was noted to be hypotensive today 8090s/60s, which the patient reports he often runs that low. Was noted to be briefly hypoxic and placed on 3 L nasal cannula, however was able to be de-escalated to room air with O2 sat of 94%, though still with subjective symptoms of shortness of breath. At time of my interview patient reported weakness and shortness of breath; denied abdominal pain, nausea, vomiting, recent fevers or chills, URI symptoms, chest pain. Of note, patient was admitted to [facility] on 02/07 for REBECCA on CKD with a creatinine of 3.31; on discharge 02/10 his creatinine was 2.32. During that admission he was diuresed with Lasix, fluid restricted, and placed on a low -sodium heart healthy diet due to suspicion for cardiorenal syndrome. He follows with Liliam Pedersen in the heart failure clinic, with last reported dry weight of 241 lbs. He does not admit to a recent increase in dietary indiscretion, and reports that since his discharge from her she has been eating significantly less saltcontaining foods, and in fact has not been eating much in general due to "most of the foods that he likes having salt in them". Case was discussed with Dr. Morton who recommended trial of IV Lasix with repeat lab work in the morning. Admission Exam Per Admitting Provider Constitutional: WD/WN, vitals as above Eyes: PERRL, conjunctivae normal, anicteric sclerae ENMT: external ear and nose normal, oropharynx normal Neck: normal visual inspection Respiratory: normal respiratory effort; no cough Bibasilar crackles Cardiovascular: Rate/Rhythm: regular rate and regular rhythm Heart Sounds: no murmur Extremities: + edema (1+ bilateral LE to mid-rosales) Gastrointestinal (Abdomen): normal bowel sounds, soft, nontender, no hepatosplenomegaly Musculoskeletal: Extremities: no cyanosis and no clubbing Skin: no rashes, warm and dry Neurologic: AAOx3, normal speech. PERRLA, EOMI, no nystagmus. Psychiatric: A+Ox3, euthymic affect Principal Diagnosis Acute Cardiorenal Syndrome causing cardiac arrest and Discharge Exam General: patient is lying in bed with eyes closed, unresponsive to verbal or tactile/painful stimuli of any kind Eyes: pupils fixed and not reactive to light Heart: no heart sounds on auscultation, no carotid or femoral pulses with palpation and doppler exam Lungs: no breath sounds Discharge Data Allergies Allergy/AdvReac Type Severity Reaction Status Date / Time No Known Allergies Allergy Verified 02/19/21 21:57 Consultations 02/19/21 22:29 ED Decision to Admit Stat 02/20/21 00:00 Consult Cardiology Routine Consult Nephrology Routine 02/21/21 09:26 Consult Palliative Care Routine Ordered Studies 02/19/21 21:38 CT head/brain wo con Urgent 02/20/21 17:59 US renal/blad retro comp Routine Hospital Course (1) CHF exacerbation: Ty Lewis is a 60 yo male with PMHx significant for HFrEF 2/2 nonischemic cardiomyopathy (EF 30% in 12/2020), status post AICD, permanent a-fib (on Xarelto), CKD stage III, and hypothyroidism who was admitted to [facility] on 02/20 for acute on chronic HFrEF and REBECCA, likely acute cardiorenal syndrome. He on 02/23 after cardiac arrest/asystole, at 10:45am. Acute Cardiorenal Syndrome, Acute on Chronic HFrEF, REBECCA on CKDIII EF 30% in 12/2020, increasing dyspnea/orthopnea despite increased diuretic regimen for one month, BNP ~11,000 this admission. - Cardiology and Nephrology consulted - patient was started on low-dose Dopamine gtt at 2mcg/kg/min and was also started on Bumex 2mg IV BID - patient likely needed to have urgent LVAD +/- heart transplant, but patient and his were unsure of wanting to be transferred for evaluation for this - palliative care was consulted on 02/22; patient and were initially leaning towards home with hospice, so Dopamine/Bumex was stopped on 02/22 with hope to get the patient either home with hospice on 02/23 or discharged with plans to follow up with [facility] as outpatient for heart transplant evaluation - patient had acute respiratory decompensation and worsening kidney failure on 02/23, and the patient/ decided that they want him transferred to [facility] for inpatient care/evaluation for LVAD/transplant - unfortunately the patient went into cardiorespiratory failure and cardiac arrest and at 10:45am on 02/23 (2) Acute kidney injury superimposed on CKD: (3) REBECCA (acute kidney injury): (4) Atrial fibrillation, permanent: (5) ICD (implantable cardioverter-defibrillator), biventricular, in situ: (6) Nonischemic cardiomyopathy: (7) Chronic systolic (congestive) heart failure: (8) Dyslipidemia: (9) Esophageal reflux: (10) Peripheral neuropathy: (11) Hypothyroidism: (12) On amiodarone therapy: Total Time Total Time Spent Total Time Spent (In Minutes): 45 minutes Discharge Plan Discharge Items Patient Disposition: Discharge Diagnosis: Acute Cardiorenal Syndrome Acute on Chronic HFrEF REBECCA on CKDIII Addtl Attending Provider Instructions: Ty Lewis was admitted to [facility] from 02/20 - 02/23 for worsening heart failure as well as worsening kidney function. He was treated with IV diuretics called Bumex to remove fluid from his lungs, and he also need an IV medication called Dopamine to keep his blood pressure up. He also required supplemental oxygen to keep his oxygen levels up. On 02/22, his kidney function started to get better and he was trialed off of Dopamine and Bumex with the hope of discharging him with plans to go to outpatient appointment in [place] for evaluation for heart transplant. Unfortunately his condition worsened, and on 02/23 he and his decided they would like to transfer him directly to [facility]. We attempted to re-start the patient's Dopamine at 10:40, but very shortly after starting the medication the patient went into cardiac arrest with asystole and no pulse. He was DNR/DNI and no resuscitative efforts were made, as was appropriate for this patient. Other Date/Time: 02/23/21 10:45 Supervising Physician Co-Signing Physician Notes Attending attestation Pt seen and examined in concert with Dr. Gillis. In agreement with the documented findings as noted in the resident documentation with any exceptions or additions as noted here. 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 Spouse called to bedside. Care team discussed with spouse and patient to continue DNR/DNI and decide between hospice and transfer to [facility]. Patient decided transfer and, during re-initiation of dopamine and starting dobutamine after discussion with cardiology team and ordering of BIPAP, patient became asystolic and by his wishes, was not resuscitated. Examination prior to asystole was S1/S2 nl RRR no MCG. bilateral basilar breath sound decrease with mild rales. Abd NT/ND BS+ve Total attending time spent on this case on the day of discharge: 75 minutes. Resident Activity Tracking Resident Involvement: Resident Care Provided Care Provided: Adult Hospital Medicine
== END 2021-02-23 13:58 | disposition expired | DRG 291 ==
LOC: ED 20:44 → 1E 02-20 → SUATTDRO 02-20 → 1E 02-20 03:37